=== PATIENT | male | born 1980 | race Caucasian/White ===

== ENCOUNTER 2017-09-28 12:01 | Emergency (ER) | payer MEDICAID ==
[~2017-09-28] VITALS: Ht 160 cm; Wt 72.6 kg
[~2017-09-28 12:01] MED LIST: ALBU2.5V7 INH; ARTT OP; CALC-226 GT; CHLO473M5 MM; DULR10 RC; IPRA0.2S6 INH; MULT240L GT; OMEP20CA10 GT; SENN8.8S13 GT; TYLL650 GT; TYLL650 PO; [UNRECOGNIZED DRUG - OTHER] GT
[2017-09-28 12:08] VITALS: BP_SYST 123
[2017-09-28] MEDS ORDERED: GASTROGRAFIN 120 ML ONE (12:50)
[2017-09-28 13:05] VITALS: BP_SYST 123
== END 2017-09-28 13:05 | disposition home or self-care (01) ==
LOC: SED 12:01
DX: Z46.59 Encounter for fitting and adjustment of other gastrointestinal appliance and device (principal); K21.9 Gastro-esophageal reflux disease without esophagitis; G80.9 Cerebral palsy, unspecified; Z79.899 Other long term (current) drug therapy
CPT/HCPCS: 43760; 74240; 99284; Q9963

== ENCOUNTER 2018-01-07 13:42 | Emergency (ER) | payer MEDICAID ==
[~2018-01-07] VITALS: Ht 160 cm; Wt 81.6 kg
[~2018-01-07 13:42] MED LIST changes: -CALC-226 GT; +CALC-823 GT
[2018-01-07 13:45] VITALS: BP_SYST 159
--- NOTE | 2018-01-07 13:54 | NUR ---
Pt brought by ambulanc care, Alert to voice, pt presents to ER with G-tube dislodgement since today, pt has contractures on upper extremities, temp 100.2,respirations even and unlabored.
--- NOTE | 2018-01-07 14:10 | NUR ---
Dr Jauregui at bedside examining patient.
--- NOTE | 2018-01-07 14:20 | NUR ---
Dr Jauregui at bedside for G-tube replacement, well tolerated.
[2018-01-07] MEDS ORDERED: GASTROGRAFIN 120 ML ONE (14:41)
--- NOTE | 2018-01-07 15:04 | NUR ---
Called Mauricio vaca to give report on patient status, spoke with renata Vu on stable condition.
[2018-01-07 15:05] VITALS: BP_SYST 144
--- NOTE | 2018-01-07 15:05 | NUR ---
Patient given written and verbal discharge instructions and verbalizes understanding. ER MD discussed with patient the results and treatment provided. Patient in stable condition. ID arm band removed. No Rx given. Patient educated on pain management and to follow up with PMD in 2-3 days. Pain Scale 0/10 Opportunity for questions provided and answered.
== END 2018-01-07 15:05 | disposition home or self-care (01) ==
LOC: SED 13:42
DX: Z43.1 Encounter for attention to gastrostomy (principal); R03.0 Elevated blood-pressure reading, without diagnosis of hypertension; K21.9 Gastro-esophageal reflux disease without esophagitis; Z79.899 Other long term (current) drug therapy
CPT/HCPCS: 43760; 74241; 99284; Q9963

== ENCOUNTER 2019-04-10 03:50 | Inpatient (IN) | payer MEDICAID ==
[~2019-04-10] VITALS: Ht 185.4 cm; Wt 84.4 kg
[2019-04-10] VITALS (20 sets, daily range): BP systolic 85–166
[~2019-04-10 03:50] MED LIST changes: -OMEP20CA10 GT; +OMEP20CA11 GT
--- NOTE | 2019-04-10 03:50 | NUR ---
Fredy dominguez in [facility] - 04/10/19 at 0709 by [email or web address] Patient to bed 3 to [facility] for evaluation. Side rails up.
--- NOTE | 2019-04-10 03:50 | NUR ---
Placed in room 3 . Placed on careers adviser, blood pressure machine and pulse oximeter. To gown for exam. Side rails up.
--- NOTE | 2019-04-10 03:51 | NUR ---
Patient was BIB [facility] from [facility] c/o high temperature, elevated Heart rate, and hypertension. Per information technology internship, pt was found by staff pale and they checked his vital signs and temp was at 105 orally and per paramedics, HR was at 180 at in SVT. Pt arrived diaphoretic. Pt is vent dependent. Hx of Cerebral Palsy. No other injuries/complaints per patient or noted.
--- NOTE | 2019-04-10 03:52 | NUR ---
ER Dr. Clay at bedside examining patient.
--- NOTE | 2019-04-10 04:01 | NUR ---
Accucheck was done, 361. Dr. Clay made aware.
[2019-04-10] MEDS ORDERED: ACETAMINOPHEN 650 MG SUPP.RECT RC ONE ×2 (04:15→10:15)
[2019-04-10] MEDS ORDERED: NS 1000 ML IV.SOLN IV ONE (04:15)
--- NOTE | 2019-04-10 04:20 | NUR ---
Blood cultures were drawn and sent to lab.
[2019-04-10 04:42] LABS: BASOPHILS # (AUTO) 0.1 K/uL (0.0-0.2); HEMOGLOBIN 16.1 g/dL (14.0-18.0)
[2019-04-10 04:48] LABS: MEAN CORPUSCULAR HEMOGLOBIN 31 pg (27-31); RED BLOOD CELL COUNT(AUTO) 5.14 MIL/uL (4.2-6.2)
[2019-04-10 04:49] LABS: CALCIUM 10.2 mg/dL (8.4-11.0); CREATININE 0.81 mg/dL (0.55-1.30); POTASSIUM 4.6 mmol/L (3.5-5.1)
--- NOTE | 2019-04-10 04:50 | NUR ---
Dr. Clay at bedside performing central line procedure using septic technique.
[2019-04-10] MEDS ORDERED: DOCU-144 GT (04:52)
[2019-04-10] MEDS ORDERED: OMEP20CA11 PO (04:52)
[2019-04-10 04:53] LABS: BASOPHILS % (AUTO) 0.6 % (0.0-2.0); HEMATOCRIT 48.3 % (36-54); INR 1.1 (0.80-1.20); LYMPHOCYTES # (AUTO) 1.3 K/uL (1.0-5.5); LYMPHOCYTES % (AUTO) 6.2 % (20.5-51.5); MEAN CORPUSCULAR HGB CONC 33 % (32-36); MEAN CORPUSCULAR VOLUME 94 fL (79.0-98.0); MONOCYTES # (AUTO) 0.4 K/uL (0.0-1.0); NEUTROPHILS # (AUTO) 18.6 K/uL (1.8-7.7); NEUTROPHILS % (AUTO) 91.2 % (40.0-70.0); PLATELET COUNT (AUTO) 333 K/uL (130-430); PROTHROMBIN TIME 11.1 SECS (9.5-12.5); RED CELL DISTRIBUTION WIDTH 14.6 % (9.0-15.0); WHITE BLOOD COUNT (AUTO) 20.4 K/uL (4.8-10.8)
--- NOTE | 2019-04-10 04:55 | NUR ---
Medication reconciliation completed with information provided by patient paperwork. Any prior medication reconciliation on file was reviewed and corrected.
[2019-04-10 04:56] LABS: ALBUMIN 3.4 g/dL (3.4-4.8); TOTAL BILIRUBIN 0.7 mg/dL (0.0-1.0)
[2019-04-10 04:58] LABS: BILIRUBIN,URINE NEGATIVE (NEGATIVE); BLOOD, URINE 3+ (NEGATIVE); CLARITY/URINE CLEAR (CLEAR); COLOR,URINE YELLOW (YELLOW); GLUCOSE,URINE 2+ (NEGATIVE); KETONES,URINE TRACE (NEGATIVE); LEUKOCYTE ESTERASE ,URINE 1+ (NEGATIVE); NITRITE, URINE NEGATIVE (NEGATIVE); PROTEIN URINE 3+ (NEGATIVE)
--- NOTE | 2019-04-10 05:00 | NUR ---
Dr. Clay at bedside attempting to place central line to Right femoral using sterile technique. Unsuccessful due to patient severely contracted, per Dr. Clay.
[2019-04-10 05:10] LABS: BACTERIA,URINE MANY /HPF (None Seen); RBC,URINE >100 /HPF (0-3)
[2019-04-10 05:11] LABS: YEAST,URINE Few /HPF (None Seen)
--- NOTE | 2019-04-10 05:30 | NUR ---
Note alberto in EDM - 04/10/19 at [email or web address] Clay at bedside attempting to place IJ to Right subclavian using sterile technique. Unsucessful attempt, unable to access.
--- NOTE | 2019-04-10 05:30 | NUR ---
Dr. Clay at bedside attempting to place central line to Right subclavian using sterile technique. Unsucessful attempt, unable to access.
[2019-04-10] MEDS ORDERED: ADENOSINE 6MG/2ML VIAL IVP ONE ×2 (06:00)
[2019-04-10] MEDS ORDERED: KETOROLAC TROMETHAMINE 30 MG VIAL IVP ONE (06:00)
--- NOTE | 2019-04-10 06:00 | NUR ---
Patient was placed on secured entrance monitor for cardioversion, per Dr. Clay. , Charge Nurse, RT, and primary nurse at bedside.
--- NOTE | 2019-04-10 06:05 | NUR ---
Patient was cardioverted at 200J, per Dr. Caly. Converted to sinus tachycardia.
[2019-04-10] MEDS ORDERED: AMIODARONE HCL 150 MG in D5W 97 ML IV ONE (06:15)
[2019-04-10] MEDS ORDERED: AMIODARONE HCL 900 MG in D5W 482 ML IV ONE (06:15)
[2019-04-10] MEDS ORDERED: AMIODARONE HCL 150 MG/3ML VIAL ONE ×3 (06:22→06:33)
--- NOTE | 2019-04-10 07:12 | NUR ---
ER Dr. Clay at bedside speaking to patient's family.
--- NOTE | 2019-04-10 07:24 | NUR ---
Report given to CATA Batista. All care endorsed.
--- NOTE | 2019-04-10 07:36 | NUR ---
Pt has [address] in place L tibia, one in R humerus, both patent and flushing well. Pt has trach with 50% O2, 450ml tidal volume, and rate of 18. Pt temperature taken rectally 106.7, ice packs refreshed. Currently AOx1 responds to tactile/painful stimuli. Addendum: 04/10/19 at 0940 by [email or web address] Pt has [address] one in place L tibia, one in R humerus, both patent and flushing well. Pt has trach with 50% O2, 450ml tidal volume, and rate of 18. Pt temperature taken rectally 106.7, ice packs refreshed. Currently AOx1 responds to tactile/painful stimuli. Pt received 2L NS beginning 0435 and Levaquin at 0457. Currently on Amiodarone drip at 33.3ml/hr.
--- NOTE | 2019-04-10 08:00 | NUR ---
Current rectal temp is 106.7
--- NOTE | 2019-04-10 08:10 | NUR ---
Cooling measures are in place. Motrin 600mg given
[2019-04-10] MEDS ORDERED: IBUPROFEN 100 MG/5 ML UDC ONE (08:23)
[2019-04-10] MEDS ORDERED: INSULIN REGULAR, HUMAN 10 UNITS/0.1 ML INJ ONE (08:56)
[2019-04-10] MEDS ORDERED: IBUPROFEN 100 MG/5 ML UDC PO ONE (09:00)
[2019-04-10] MEDS ORDERED: NACL 0.9% 1,000 ML IV ONE (09:00)
[2019-04-10] MEDS ORDERED: INSULIN REGULAR, HUMAN 10 UNITS/0.1 ML INJ IVP ONE (09:00)
--- NOTE | 2019-04-10 09:10 | NUR ---
Dr Patel notified that central line was unable to be obtained. Dr Patel would not place admission orders until there is a line in place
--- NOTE | 2019-04-10 09:15 | NUR ---
Dr. Dwyer at the bedside attempting to insert a central line.
--- NOTE | 2019-04-10 09:30 | NUR ---
IO sites both flushing well no redness or pain noted, blood return obtained. Pt appears to be resting in bed with family at bedside.
--- NOTE | 2019-04-10 09:35 | NUR ---
Current accu check is 377. Dr. Dwyer notified. Insulin 10units IVP given per MD order
--- NOTE | 2019-04-10 09:37 | NUR ---
Dr. Dwyer spoke w/ Dr. Patel again, regarding admission
--- NOTE | 2019-04-10 09:58 | NUR ---
pt will be admitted to the ICU. Currently on zaynab w/ the following settings TV-450, RR-18, FiO2-50%, AC-mode. Track is a portex size 7, cuffed. Pt as two IO sites on the right shoulder and right tibia ifusing NS bolus and Amiodarone drip @33.3ml. Escobar cath #16 is to gravity draining yellow concentrated urine. Current VS are temp 105, 130/77, 157, O2 sat 95%, RR 25.
--- NOTE | 2019-04-10 10:02 | NUR ---
MRSA swab collected
--- NOTE | 2019-04-10 10:04 | NUR ---
MRSA collected and sent to the lab
[2019-04-10] MEDS ORDERED: DILTIAZEM HCL 25 MG/5 ML VIAL IVP ONE (10:15)
--- NOTE | 2019-04-10 10:15 | NUR ---
pt received 2l of NS, 3l currently infusing. Pt received Levaquin IVPB prior to the beginning of the shift.
--- NOTE | 2019-04-10 10:20 | NUR ---
ABGs being attempted at this time
--- NOTE | 2019-04-10 10:35 | NUR ---
ER- ICU Arrived to ER bed 3 to help assist pt to ICU. Pt connected to transport monitor, pt is trach connected to vent connected to the vent with RT assisting. Bedside report received from Lynne IVY. Pt placed in ICU bed 3.
--- NOTE | 2019-04-10 10:53 | NUR ---
Transfer to ICU bed via ACLS protocol. Licensed nurse present. IO x 2 sites present no signs or symptoms of infiltration. Bedside report given to Talia IVY. Pt transported w/ vent, RT present.
--- NOTE | 2019-04-10 10:55 | NUR ---
pt transfered from er 3 to icu 3 on somers ventilator on current settings. tolerated well with no complications. remains on current vent setting vt 450 ac 18 fio2 50%
--- NOTE | 2019-04-10 11:02 | NUR ---
Cooling Measures Cooling blanket applied to pt with a sheet to protect skin, rectal prob inserted to monitor pts temp.
--- NOTE | 2019-04-10 11:20 | NUR ---
PICC PICC line nurse Jordin RN at bedside with pt, time out performed.
[2019-04-10] MEDS ORDERED: PANTOPRAZOLE SODIUM 40 MG/VIAL (PROTONIX) IVP ONE (11:45)
[2019-04-10] MEDS ORDERED: KCL 20 mEq in D5/0.45NS 1000mL 1,000 ML IV SCH (11:45)
[2019-04-10] MEDS ORDERED: CEFEPIME 1 GM in D5W 50 ML IV ONE (11:45)
[2019-04-10] MEDS ORDERED: NS 500 ML IV ONE (13:15)
[2019-04-10] MEDS ORDERED: NOREPINEPHRINE BITARTRATE 4 MG in D5W 246 ML IV PRN ×2 (13:15→14:00)
[2019-04-10 13:28] LABS: INR 1.3 (0.80-1.20); PROTHROMBIN TIME 12.9 SECS (9.5-12.5)
[2019-04-10] MEDS ORDERED: ACETAMINOPHEN 650 MG/20.3 ML UDC PO SCH (13:45)
[2019-04-10] MEDS ORDERED: PEG 400/HYPROMELLOSE/GLYCERIN 15 ML DROPS OP PRN (13:45)
[2019-04-10] MEDS ORDERED: ALBUTEROL SULFATE 0.083% 2.5 MG/3 ML VIAL.NEB INH PRN (13:45)
--- NOTE | 2019-04-10 13:57 | NUR ---
Family Pts family is at bedside, Dr. Patel has updated pts family who are at bedside.
[2019-04-10] MEDS ORDERED: IBUPROFEN 800 MG TABLET PO PRN (14:00)
[2019-04-10] MEDS: ALBUTEROL SULFATE 0.083% 2.5 MG/3 ML VIAL.NEB INH SCH ×3 (15:00→23:00)
[2019-04-10] MEDS: D5NS 1,000 ML IV SCH ×2 (15:09→18:57)
[2019-04-10] MEDS: ACETAMINOPHEN 650 MG/20.3 ML UDC GT PRN (15:21)
[2019-04-10] MEDS ORDERED: IBUPROFEN 800 MG TABLET GT PRN (16:35)
[2019-04-10] MEDS ORDERED: COMMUNICATION ORDER XX ONE (16:45)
[2019-04-10] MEDS ORDERED: VANCOMYCIN HCL 1 GM/NS PREMIX 250 ML IV SCH (19:00)
--- NOTE | 2019-04-10 19:05 | NUR ---
MD Dr. Mendoza at bedside with pt and pt's family.
--- NOTE | 2019-04-10 19:10 | NUR ---
Closing Notes Pt endorsed to night RN using SBAR. pt's family at bedside.
--- NOTE | 2019-04-10 20:00 | NUR ---
OBTUNDED. TRACH TO VENT. SUCTIONED WITH SCANT AMOUNT OF CLEAR, THIN MUCUS OBTAINED. ORAL CARE GIVEN. DOES NOT FOLLOW COMMANDS. UPPER EXTREMITIES CONTRACTED. BREATH SOUNDS WITH ADVENTITIOUS SOUNDS. BOWEL SOUNDS (+). GT CLAMPED. COOLING BLANKET IN PLACE. DAMON CATH PATENT DRAINING CLEAR SUMAYA URINE TO GRAVITY. PEDAL PULSES (+) VIA DOPPLER. HEEL PROTECTORS IN PLACE. TOM PICC LINE DRSG D/I. SINUS TACHYCARDIA.
[2019-04-10] MEDS ORDERED: VANCOMYCIN HCL 1000 MG/VIAL IV ONE (20:19)
[2019-04-10] MEDS ORDERED: VANCOMYCIN HCL 500 MG/VIAL IV ONE (20:19)
--- NOTE | 2019-04-10 20:25 | NUR ---
DR URRUTIA HERE, TALKED TO FAMILY. NEW ORDERS GIVEN TO BE IMPLEMENTED.
[2019-04-10] MEDS ORDERED: VANCOMYCIN HCL 500 MG in NS 100 ML IV SCH (21:00)
[2019-04-10] MEDS: CHLORHEXIDINE GLUCONATE 15 ML/DOSE, 480 ML MM SCH (21:00)
--- NOTE | 2019-04-10 21:00 | NUR ---
FAMILY LEFT FOR HOME.
--- NOTE | 2019-04-10 22:00 | NUR ---
TEMP 99.8, COOLING BLANKET OFF. SUCTIONED. HS CARE GIVEN. TURNED.
[2019-04-10] MEDS: SENNA 8.8 MG/5 ML UDC GT SCH (22:12)
[2019-04-10] MEDS: CALCIUM CARBONATE/VITAMIN D3 1 TAB TABLET GT SCH (22:12)
[2019-04-10] MEDS: CEFEPIME 1 GM in D5W 50 ML IV SCH (22:13)
[2019-04-10] MEDS ORDERED: metroNIDAZOLE 500 mg/NS 200 ML IV ONE (22:45)
[2019-04-10] MEDS: metroNIDAZOLE 500 mg/NS 100 ML IV SCH (23:23)
[2019-04-11] VITALS (34 sets, daily range): BP systolic 93–122
--- NOTE | 2019-04-11 | NUR ---
SUCTIONED AGAIN. ORAL CARE GIVEN. HR BETTER, 122. TURNED.
--- NOTE | 2019-04-11 02:00 | NUR ---
SUCTIONED. TURNED. HR 115.
[2019-04-11] MEDS: ALBUTEROL SULFATE 0.083% 2.5 MG/3 ML VIAL.NEB INH SCH ×3 (03:57→23:40)
--- NOTE | 2019-04-11 04:00 | NUR ---
TURNED AND REPOSITIONED. SUCTIONED WITH SAME RESULTS. ORAL CARE GIVEN. VSS.
[2019-04-11] MEDS: metroNIDAZOLE 500 mg/NS 100 ML IV SCH ×3 (05:55→21:57)
[2019-04-11] MEDS: D5NS 1,000 ML IV SCH ×2 (05:55→14:18)
--- NOTE | 2019-04-11 06:00 | NUR ---
SUCTIONED AND TURNED Q2 HRS AND PRN. UO GOOD. RECTAL TEMP 99.6, AND HR SLOWLY CREEPING UP AT 125, COOLING BLANKET BACK ON. REMAINS IN GUARDED CONDITION.
[2019-04-11] MEDS: CALCIUM CARBONATE/VITAMIN D3 1 TAB TABLET GT SCH ×2 (08:22→21:56)
[2019-04-11] MEDS: PANTOPRAZOLE SODIUM 40 MG/VIAL (PROTONIX) IVP SCH (08:23)
[2019-04-11] MEDS: SENNA 8.8 MG/5 ML UDC GT SCH ×2 (08:25→21:56)
[2019-04-11] MEDS: MULTIVITAMINS,THERAPEUTIC 5 ML UDC GT SCH (08:28)
[2019-04-11] MEDS: CEFEPIME 1 GM in D5W 50 ML IV SCH ×2 (08:31→21:55)
[2019-04-11] MEDS ORDERED: PANTOPRAZOLE SODIUM 40 MG TAB PO SCH (09:00)
[2019-04-11] MEDS: CHLORHEXIDINE GLUCONATE 15 ML/DOSE, 480 ML MM SCH ×2 (09:00→21:57)
[2019-04-11] MEDS ORDERED: ENOXAPARIN SODIUM 40 MG/0.4 ML SYRINGE SUBCUT SCH (09:00)
[2019-04-11 09:15] LABS: BASOPHILS % (AUTO) 0.2 % (0.0-2.0); HEMATOCRIT 32.6 % (36-54); HEMOGLOBIN 10.5 g/dL (14.0-18.0); LYMPHOCYTES # (AUTO) 1.9 K/uL (1.0-5.5); LYMPHOCYTES % (AUTO) 12.5 % (20.5-51.5); MEAN CORPUSCULAR HEMOGLOBIN 31 pg (27-31); MEAN CORPUSCULAR HGB CONC 32 % (32-36); MEAN CORPUSCULAR VOLUME 96 fL (79.0-98.0); MONOCYTES # (AUTO) 1.2 K/uL (0.0-1.0); MONOCYTES % (AUTO) 8.1 % (1.7-9.3); NEUTROPHILS # (AUTO) 12.1 K/uL (1.8-7.7); NEUTROPHILS % (AUTO) 79.2 % (40.0-70.0); PLATELET COUNT (AUTO) 57 K/uL (130-430); RED BLOOD CELL COUNT(AUTO) 3.41 MIL/uL (4.2-6.2); RED CELL DISTRIBUTION WIDTH 15.2 % (9.0-15.0); WHITE BLOOD COUNT (AUTO) 15.2 K/uL (4.8-10.8)
[2019-04-11 09:36] LABS: CREATININE 0.73 mg/dL (0.55-1.30)
[2019-04-11 09:49] LABS: CALCIUM 6.9 mg/dL (8.4-11.0); POTASSIUM 2.8 mmol/L (3.5-5.1)
[2019-04-11] MEDS ORDERED: POTASSIUM CHLORIDE 20 MEQ/PKT PACKET GT ONE (10:15)
[2019-04-11] MEDS ORDERED: POTASSIUM CHLORIDE 20 MEQ TAB.PRT.SR GT ONE (10:15)
--- NOTE | 2019-04-11 10:20 | NUR ---
Doctor Jolly at bedside
--- NOTE | 2019-04-11 10:30 | NUR ---
Blood Sugar taken per Dr. Jolly's request. Blood Sugar is 157
--- NOTE | 2019-04-11 10:33 | NUR ---
EKG by Respiratory Therapist Radha
[2019-04-11] MEDS ORDERED: POTASSIUM CHLORIDE 40 MEQ in NS 250 ML IV ONE (11:00)
[2019-04-11] MEDS: VANCOMYCIN HCL 1,250 MG in NS 250 ML IV SCH ×2 (11:11→19:04)
--- NOTE | 2019-04-11 11:16 | NUR ---
Vancomycin new order Patient's BUN 26 @ 0830 Verified with Pharmacy to infuse. Tyra
--- NOTE | 2019-04-11 11:18 | NUR ---
Family visitation Mother plus child
[2019-04-11 11:25] LABS: CALCIUM 8.3 mg/dL (8.4-11.0); CREATININE 0.54 mg/dL (0.55-1.30)
[2019-04-11 11:27] LABS: POTASSIUM 3.6 mmol/L (3.5-5.1)
--- NOTE | 2019-04-11 11:57 | NUR ---
MD Dr. Marrero informed of potassium redraw, new orders received to cxl K orders. informed of Procalcitonin 74.88.
[2019-04-11] MEDS: INSULIN REGULAR, HUMAN 100 UNITS/ML, 10 ML VIAL (humuLIN R) SUBCUT PRN ×2 (13:56→18:43)
[2019-04-11] MEDS: BISACODYL 10 MG/SUPPOSITORY RC SCH (15:20)
--- NOTE | 2019-04-11 16:36 | NUR ---
Cooling blanket turned off Patient's rectal body temperature was 98.7
--- NOTE | 2019-04-11 16:46 | NUR ---
Cooling blanket turned back on Patient's rectal body temperature is 99.6
[2019-04-11] MEDS ORDERED: D5W 1,000 ML IV PRN (17:15)
[2019-04-11] MEDS ORDERED: GLUCOSE 15 GM GEL (in 37.5 GM TUBE) PO PRN (17:15)
[2019-04-11] MEDS ORDERED: DEXTROSE 50%-WATER 50 ML DISP.SYRIN IVP PRN (17:15)
--- NOTE | 2019-04-11 19:30 | NUR ---
PM ASSESSMENT REPORT RECEIVED FROM CLAYTON/SARAH BETH IVY. PT RECEIVED IN BED WITH EYES CLOSED, RESPONDING TO TACTILE STIMULATION. VSS, NO S/S OF ACUTE DISTRESS NOTED. PT TRACH TO VENT, VENT SETTINGS: AC 18, TV 450, FIO2 50%. ST ON MONITOR. TOM PICC IN PLACE INFUSING D5NS @ 150 CC/HR. G-TUBE RUNNING JEVITY TF @ 20 CC/HR, GOAL RATE IS [address]. DAMON CATH IN PLACE DRAINING SUMAYA URINE TO GRAVITY. HOB ELEVATED, BED IN LOWEST POSITION, CALL LIGHT IN REACH. WILL CONTINUE TO MONITOR PT.
--- NOTE | 2019-04-11 22:05 | NUR ---
TF TF INCREASED TO 30 CC/HR. NO RESIDUALS NOTED. WILL CONTINUE TO MONITOR PT.
[2019-04-12] VITALS (30 sets, daily range): BP systolic 96–159
--- NOTE | 2019-04-12 00:20 | NUR ---
COOLING BLANKET PT RECTAL TEMP 98.5. COOLING BLANKET TURNED OFF AT THIS TIME. WILL CONTINUE TO MONITOR PT.
[2019-04-12] MEDS: VANCOMYCIN HCL 1,250 MG in NS 250 ML IV SCH ×3 (02:22→19:36)
[2019-04-12] MEDS: D5NS 1,000 ML IV SCH (02:22)
[2019-04-12] MEDS: ALBUTEROL SULFATE 0.083% 2.5 MG/3 ML VIAL.NEB INH SCH ×3 (04:25→23:14)
[2019-04-12] MEDS: metroNIDAZOLE 500 mg/NS 100 ML IV SCH ×3 (05:10→22:02)
--- NOTE | 2019-04-12 06:57 | NUR ---
Nutrition Update Lalo Scale 12 noted. Pt admitted for sepsis, UTI Chronic Respiratory Failure Diet: Jevity 1.5 at 40ml/hr (goal rate) Free Water Flush 100ml Q6H via GT BMI: 24.5 kg/m2 RD to follow per nutrition care standards.
[2019-04-12 06:58] LABS: CALCIUM 8.5 mg/dL (8.4-11.0); CREATININE 0.66 mg/dL (0.55-1.30); POTASSIUM 3.1 mmol/L (3.5-5.1)
[2019-04-12 07:10] LABS: BASOPHILS % (AUTO) 0.3 % (0.0-2.0); HEMATOCRIT 32.9 % (36-54); HEMOGLOBIN 10.7 g/dL (14.0-18.0); LYMPHOCYTES % (AUTO) 14.4 % (20.5-51.5); MEAN CORPUSCULAR HEMOGLOBIN 31 pg (27-31); MEAN CORPUSCULAR HGB CONC 33 % (32-36); MEAN CORPUSCULAR VOLUME 95 fL (79.0-98.0); MONOCYTES # (AUTO) 0.6 K/uL (0.0-1.0); MONOCYTES % (AUTO) 4.6 % (1.7-9.3); NEUTROPHILS # (AUTO) 11.3 K/uL (1.8-7.7); NEUTROPHILS % (AUTO) 80.7 % (40.0-70.0); PLATELET COUNT (AUTO) 55 K/uL (130-430); RED BLOOD CELL COUNT(AUTO) 3.47 MIL/uL (4.2-6.2)
--- NOTE | 2019-04-12 07:30 | NUR ---
PT Assessment Patient Received from CATA Guy with eyes closed and responsive to noxious stimuli only. The patient has a Portex trach, Size 7, and the vent settings are 18 RR, 450 TV, 35 PF, 50% O2. The head of the bed is set at 35 degrees, in the lowest setting, with the call light in reach. The patient is wearing heel protectors, and is still set up with a cooling blanket, which is not cooling but monitoring, and the current body temp via rectal is 98.5 degrees. TOM PICC in place infusing D5 NS @ 150. G-Tube was running Jevity 1.5 at 40cc/hr, but the patient's residual was 155cc, so patient bumped back down to 20cc for the time being. Escobar cath in place draining bismark colored urine to gravity. Will continue to monitor patient.
[2019-04-12] MEDS: SENNA 8.8 MG/5 ML UDC GT SCH ×2 (08:31→21:59)
[2019-04-12] MEDS: MULTIVITAMINS,THERAPEUTIC 5 ML UDC GT SCH (08:37)
[2019-04-12] MEDS: CALCIUM CARBONATE/VITAMIN D3 1 TAB TABLET GT SCH ×2 (08:38→21:00)
[2019-04-12] MEDS: PANTOPRAZOLE SODIUM 40 MG/VIAL (PROTONIX) IVP SCH (08:46)
[2019-04-12] MEDS: CHLORHEXIDINE GLUCONATE 15 ML/DOSE, 480 ML MM SCH ×2 (08:46→21:59)
[2019-04-12] MEDS: CEFEPIME 1 GM in D5W 50 ML IV SCH ×2 (08:47→21:59)
[2019-04-12] MEDS ORDERED: POTASSIUM CHLORIDE 20 MEQ/PKT PACKET PO ONE (10:15)
[2019-04-12] MEDS ORDERED: PHENYTOIN SODIUM INJ 1,000 MG in NS 100 ML IV ONE (11:00)
[2019-04-12] MEDS ORDERED: GLUCOSE 15 GM GEL (in 37.5 GM TUBE) GT PRN (11:09)
[2019-04-12] MEDS ORDERED: COMMUNICATION ORDER XX ONE (11:15)
[2019-04-12] MEDS ORDERED: SODIUM PHOSPHATE,MONO-DIBASIC 133 ML ENEMA RC PRN (12:15)
[2019-04-12] MEDS: INSULIN REGULAR, HUMAN 100 UNITS/ML, 10 ML VIAL (humuLIN R) SUBCUT PRN ×2 (12:26→18:09)
--- NOTE | 2019-04-12 12:41 | NUR ---
Dr Jolly in room visiting with family. Discussed the need for seizure precautions, new seizure medication, teaching and also the need for new GI medications to assist in bowel movements.
--- NOTE | 2019-04-12 13:00 | NUR ---
BED BATH PATIENT RECEIVED A CHG BED BATH, NEW LINENS AND ORAL CARE, COOLING BLANKET WAS DISCONTINUED PATIENT'S RECTAL TEMPERATURE HAS STABILIZED, ALL SKIN SURFACES WERE INSPECTED AND DRY, WARM, BLANCHABLE. WILL CONTINUE TO MONITOR THE PATIENT
--- NOTE | 2019-04-12 13:11 | NUR ---
Dietitian Recommendations *Recommend: Jevity 1.5 at 50ml/hr, Maanv BID, Prosource BID, FWF 100ml Q6H via GT Provides: 2080 kcal, 112 gm protein and 1372ml free water daily. Meets: 101% of est calorie needs and 89% of lower end of est protein needs. Please see nutritional assessment for details.
--- NOTE | 2019-04-12 13:31 | NUR ---
CONSULTATION PAGED/CALLED Reason for Consultation: [] SEIZURES Person Who was Notified: [] TOY Consulting Physician: [] DR REBECCA KATE, DR UNGER COVERING Oncology Nurse Specialty: [] NEUROLOGIST Ordering Physician: [] DR MEHTA
--- NOTE | 2019-04-12 13:45 | NUR ---
NEURO ASSESSED NEURO CONSULT VERIFIED SILENT SEIZURES, NOTING FACE AND RIGHT ARM MOVEMENT PATIENT. PROTECTIVE BED RAIL PADS INSTALLED AND SEIZURE PRECAUTIONS IMPLEMENTED. PRN DILANTIN ORDERED IF PATIENT HAS A SEIZURE > 2 MINUTES
[2019-04-12] MEDS ORDERED: LORazepam 2 MG/ML VIAL IVP ONE (14:00)
[2019-04-12] MEDS ORDERED: LORazepam 2 MG/ML VIAL ONE (14:06)
[2019-04-12] MEDS: PHENYTOIN 100 MG/4 ML UDC (DILANTIN) GT SCH ×2 (14:16→22:05)
[2019-04-12] MEDS ORDERED: POTASSIUM CHLORIDE 20 MEQ/PKT PACKET GT ONE (14:30)
[2019-04-12] MEDS: LORazepam 2 MG/ML VIAL IVP PRN (16:37)
--- NOTE | 2019-04-12 17:30 | NUR ---
CONTACT PRECAUTION URINE CAME BACK MDR, FAMILY PROVIDED TEACHING ABOUT PPE AND INFECTION CONTROL
--- NOTE | 2019-04-12 17:38 | NUR ---
ID MD DR JUARES WAS CALLED, RE: MDRO OF THE URINE. SPOKE TO ADDIE.
--- NOTE | 2019-04-12 20:00 | NUR ---
OBTUNDED. RESPONSIVE TO NOXIOUS AND PAINFUL STIMULI. DOES NOT FOLLOW COMMANDS. TRACH TO VENT. SUCTIONED WITH SMALL AMOUNT OF THIN WHITE MUCUS OBTAINED. ORAL CARE GIVEN. GT FEEDING WITH JEVITY 1.5 GOING AT AT 40CC/HR. RESIDUAL CHECK 20CC. TOM PICC LINE DRSG D/I. ARMS CONTRACTED. DAMON CATH PATENT DRAINING CLOUDY SUMAYA URINE WITH SEDIMENTS TO GRAVITY. SIDE RAILS PADDED. CONTACT ISOLATION OBSERVED. SINUS TACHYCARDIA.
[2019-04-12] MEDS: DOCUSATE SODIUM 100 MG/10 ML UDC GT SCH (21:58)
--- NOTE | 2019-04-12 22:00 | NUR ---
SUCTIONED. TURNED. HS CARE DONE. FAMILY LEFT FOR HOME EARLIER.
[2019-04-13] VITALS (30 sets, daily range): BP systolic 97–124
--- NOTE | 2019-04-13 | NUR ---
EYES CLOSED. SUCTIONED AGAIN WITH SAME RESULTS. ORAL CARE GIVEN. ACCU CHECK 196, 2 UNITS REGULAR INSULIN SQ GIVEN. RESIDUAL CHECK 20CC. GT FLUSHED WITH 100CC H2O. TURNED.
[2019-04-13] MEDS: INSULIN REGULAR, HUMAN 100 UNITS/ML, 10 ML VIAL (humuLIN R) SUBCUT PRN ×4 (02:46→17:22)
[2019-04-13] MEDS: VANCOMYCIN HCL 1,250 MG in NS 250 ML IV SCH ×3 (02:52→22:47)
--- NOTE | 2019-04-13 04:00 | NUR ---
SUCTIONED AGAIN WITH SAME RESULTS. MUCUS OOZING OUT OF TRACHEOSTOMY. TRACH CARE DONE BY RT. ORAL CARE GIVEN. TURNED. RESIDUAL CHECK 20CC. SINUS TACH.
[2019-04-13] MEDS: ALBUTEROL SULFATE 0.083% 2.5 MG/3 ML VIAL.NEB INH SCH ×6 (04:02→23:21)
[2019-04-13] MEDS: PHENYTOIN 100 MG/4 ML UDC (DILANTIN) GT SCH ×3 (05:43→22:42)
[2019-04-13] MEDS: metroNIDAZOLE 500 mg/NS 100 ML IV SCH ×3 (05:43→22:42)
--- NOTE | 2019-04-13 06:00 | NUR ---
1 LARGE LBM DEFECATED. CLEANED. SARKIS-CARE, DAMON CARE, BACK CARE, SKIN CARE RENDERED. PARTIAL LINEN CHANGE DONE. DOES NOT ASSIST WITH TURNING. MERI PROC WELL. GT FLUSHED WITH 100CC H2O. ACCU-CHEK 139, NO INSULIN DUE PER SLIDING SCALE COV. UO GOOD. REMAINS IN GUARDED CONDITION.
[2019-04-13 06:38] LABS: BASOPHILS % (AUTO) 0.5 % (0.0-2.0); EOSINOPHILS % (AUTO) 0.4 % (0.0-4.0); HEMATOCRIT 28.4 % (36-54); HEMOGLOBIN 9.3 g/dL (14.0-18.0); LYMPHOCYTES % (AUTO) 20.1 % (20.5-51.5); MEAN CORPUSCULAR HEMOGLOBIN 31 pg (27-31); MEAN CORPUSCULAR HGB CONC 33 % (32-36); MEAN CORPUSCULAR VOLUME 95 fL (79.0-98.0); MONOCYTES # (AUTO) 0.7 K/uL (0.0-1.0); MONOCYTES % (AUTO) 7.2 % (1.7-9.3); NEUTROPHILS # (AUTO) 7.3 K/uL (1.8-7.7); NEUTROPHILS % (AUTO) 71.8 % (40.0-70.0); PLATELET COUNT (AUTO) 71 K/uL (130-430); RED CELL DISTRIBUTION WIDTH 14.8 % (9.0-15.0); WHITE BLOOD COUNT (AUTO) 10.2 K/uL (4.8-10.8)
[2019-04-13 07:22] LABS: ALBUMIN 2.3 g/dL (3.4-4.8); CALCIUM 8.2 mg/dL (8.4-11.0); CREATININE 0.63 mg/dL (0.55-1.30); POTASSIUM 3.1 mmol/L (3.5-5.1); TOTAL BILIRUBIN 0.8 mg/dL (0.0-1.0)
--- NOTE | 2019-04-13 08:00 | NUR ---
Initialassessment done. Eyes closed, does not follow commands. Trache to vent, respiration is unlabored and regular. Scope ST, no ectopics. BP stable. Gtube feeding cont. rodriguez cath draining well. Turned and repositioned. Family at [facility], update given.
--- NOTE | 2019-04-13 08:02 | NUR ---
Nutrition Note EN Formula Jevity 1.5 is not available and Vital AF 1.2 will be provided as a substitute for now. RD s/w CATA Gaitan for new rec. Dietitian Recommendation: * Vital AF 1.2 at 65ml/hr, Manav BID, FWF 100ml Q6H via GT Provides: 2032 kcal, 122 gm protein and 1665ml fluid daily. Meets: 99% of estimated calorie needs and 97% of lower end of estimated protein needs. FPC, RD
[2019-04-13 08:10] LABS: PHENYTOIN (DILANTIN) 9.2 ug/mL (10.0-20.0)
--- NOTE | 2019-04-13 09:00 | NUR ---
Dr. Mendoza was here, update given. Orders received.
[2019-04-13] MEDS: CEFEPIME 1 GM in D5W 50 ML IV SCH ×2 (09:22→22:44)
[2019-04-13] MEDS: SENNA 8.8 MG/5 ML UDC GT SCH ×2 (09:22→21:00)
[2019-04-13] MEDS: PANTOPRAZOLE SODIUM 40 MG/VIAL (PROTONIX) IVP SCH (09:23)
[2019-04-13] MEDS: CHLORHEXIDINE GLUCONATE 15 ML/DOSE, 480 ML MM SCH ×2 (09:24→22:00)
[2019-04-13] MEDS ORDERED: POTASSIUM CHLORIDE 20 MEQ/PKT PACKET PO ONE (09:30)
[2019-04-13] MEDS: ENOXAPARIN SODIUM 40 MG/0.4 ML SYRINGE SUBCUT SCH (09:31)
[2019-04-13] MEDS: DOCUSATE SODIUM 100 MG/10 ML UDC GT SCH ×2 (09:39→21:00)
[2019-04-13] MEDS: MULTIVITAMINS,THERAPEUTIC 5 ML UDC GT SCH (09:41)
[2019-04-13] MEDS: 0.45% NACL 1,000 ML IV SCH (10:50)
[2019-04-13] MEDS: CALCIUM CARBONATE/VITAMIN D3 1 TAB TABLET GT SCH ×2 (12:03→22:42)
--- NOTE | 2019-04-13 14:34 | NUR ---
1330 TITRATED FIO2 DOWN TO 40%. PT TOLERATING WELL
--- NOTE | 2019-04-13 14:50 | NUR ---
Dr. Brown was here, update given. Spoke to pt's mother. Repositioned to side. Suctioned.
--- NOTE | 2019-04-13 17:01 | NUR ---
Manager Mission: Met with pt. to conduct a DCPA GAS SHOVEL OPERATOR intoduced self to pts. mom as pt. was sleeping. GAS SHOVEL OPERATOR learned that mom is polish speaking. GAS SHOVEL OPERATOR will call family.
[2019-04-13] MEDS: LORazepam 2 MG/ML VIAL IVP PRN (17:15)
--- NOTE | 2019-04-13 17:15 | NUR ---
Ativan 2mg given for restlessness. Repositioned to side.
[2019-04-14] VITALS (29 sets, daily range): BP systolic 93–152
[2019-04-14] MEDS: ALBUTEROL SULFATE 0.083% 2.5 MG/3 ML VIAL.NEB INH SCH ×6 (03:56→23:18)
[2019-04-14] MEDS: metroNIDAZOLE 500 mg/NS 100 ML IV SCH ×3 (05:54→21:52)
[2019-04-14] MEDS: PHENYTOIN 100 MG/4 ML UDC (DILANTIN) GT SCH ×3 (06:04→21:52)
[2019-04-14 06:08] LABS: BASOPHILS # (AUTO) 0.1 K/uL (0.0-0.2); BASOPHILS % (AUTO) 0.6 % (0.0-2.0); EOSINOPHILS # (AUTO) 0.1 K/uL (0.0-0.4); EOSINOPHILS % (AUTO) 1.5 % (0.0-4.0); HEMATOCRIT 29.1 % (36-54); HEMOGLOBIN 9.6 g/dL (14.0-18.0); LYMPHOCYTES # (AUTO) 1.9 K/uL (1.0-5.5); LYMPHOCYTES % (AUTO) 23.4 % (20.5-51.5); MEAN CORPUSCULAR HEMOGLOBIN 31 pg (27-31); MEAN CORPUSCULAR HGB CONC 33 % (32-36); MEAN CORPUSCULAR VOLUME 94 fL (79.0-98.0); MONOCYTES # (AUTO) 0.6 K/uL (0.0-1.0); MONOCYTES % (AUTO) 7.7 % (1.7-9.3); NEUTROPHILS # (AUTO) 5.6 K/uL (1.8-7.7); NEUTROPHILS % (AUTO) 66.8 % (40.0-70.0); PLATELET COUNT (AUTO) 101 K/uL (130-430); RED BLOOD CELL COUNT(AUTO) 3.11 MIL/uL (4.2-6.2); RED CELL DISTRIBUTION WIDTH 14.8 % (9.0-15.0); WHITE BLOOD COUNT (AUTO) 8.3 K/uL (4.8-10.8)
[2019-04-14 06:40] LABS: ALBUMIN 2.3 g/dL (3.4-4.8); CALCIUM 8.6 mg/dL (8.4-11.0); CREATININE 0.52 mg/dL (0.55-1.30); POTASSIUM 3.2 mmol/L (3.5-5.1); TOTAL BILIRUBIN 0.6 mg/dL (0.0-1.0)
--- NOTE | 2019-04-14 07:59 | NUR ---
Initial assessment done. Eyes, closed, nonverbal, does not follow commands. Scope shows STach, no ectopics. Afebrile. Bp stable. Trache to vent, respiration is unlabored. Abdomen is soft with GT feeding going at 50 ml/hr. HOB elevated for aspiration precautions. rodriguez cath draining well.
--- NOTE | 2019-04-14 08:01 | NUR ---
Tube feed switched to Vital AF 1.2. Tube feed turned off one hour prior to and one hr after administration of Dilantin per order. Endorsed to CATA Gaitan to restart tube feeding.
[2019-04-14] MEDS: DOCUSATE SODIUM 100 MG/10 ML UDC GT SCH ×2 (08:21→20:28)
[2019-04-14] MEDS: CHLORHEXIDINE GLUCONATE 15 ML/DOSE, 480 ML MM SCH ×2 (08:21→20:29)
[2019-04-14] MEDS: PANTOPRAZOLE SODIUM 40 MG/VIAL (PROTONIX) IVP SCH (08:22)
[2019-04-14] MEDS: CALCIUM CARBONATE/VITAMIN D3 1 TAB TABLET GT SCH ×2 (08:22→20:28)
[2019-04-14] MEDS: SENNA 8.8 MG/5 ML UDC GT SCH ×2 (08:23→20:28)
[2019-04-14] MEDS: CEFEPIME 1 GM in D5W 50 ML IV SCH ×2 (08:24→20:28)
[2019-04-14] MEDS: ENOXAPARIN SODIUM 40 MG/0.4 ML SYRINGE SUBCUT SCH (08:26)
[2019-04-14] MEDS: MULTIVITAMINS,THERAPEUTIC 5 ML UDC GT SCH (08:27)
--- NOTE | 2019-04-14 10:00 | NUR ---
Dr. Mendoza and Dr. Patel were here, orders received. Family at bedside
--- NOTE | 2019-04-14 12:00 | NUR ---
Tolerating feeding well. Repositioned to side. Urine output adequate.
[2019-04-14] MEDS: VANCOMYCIN HCL 1,250 MG in NS 250 ML IV SCH ×2 (12:01→23:42)
[2019-04-14] MEDS: POTASSIUM CHLORIDE 20 MEQ TAB.PRT.SR PO SCH ×2 (12:55→16:12)
--- NOTE | 2019-04-14 14:14 | NUR ---
Discharge Plan/ICU Assessment Phoned patient's sister, Brianda [phone]. It is a non working number. Phoned number based on the phone number from the Admission Assessment, , and left a voicemail message. Will await return call. Phoned Biju at [facility], . Patient has been a resident there for over five years. They are holding his bed and plan for him to return there. Patient's mother visits him daily but only speaks Maori. HARMONY conducted a chart review and completed the DCP/ICU Assessment. Addendum: 04/14/19 at 1536 by Erika [place] LCSW Mother was in the room. Asked translator interpreter to assist with speaking with mother. When arrived at the room, patient's mother had left.
[2019-04-14] MEDS: LORazepam 2 MG/ML VIAL IVP PRN (16:10)
--- NOTE | 2019-04-14 16:10 | NUR ---
Pt is restless, Ativan 2 mng IVP given. VSS. Repositioned for comfort
[2019-04-14] MEDS: 0.45% NACL 1,000 ML IV SCH (16:21)
--- NOTE | 2019-04-14 18:11 | NUR ---
Mother remains at bedside, very attentive to patient. VSS. Urine output adequate.
--- NOTE | 2019-04-14 19:10 | NUR ---
PM ASSESSMENT Pt in bed with eyes closed resting comfortably. No signs of acute distress or discomfort noted. Family at bedside. Pt trach to vent with vent settings: AC 18, TV 450, FiO2 40%. Pt tolerating vent settings well with O2 sats @ 97% and even and unlabored breathing. TOM picc infusing IVF, c/d/i. Escobar cath note draining urine to gravity, g tube noted infusing tubefeeding. Bed is locked and in lowest position, call light within reach, will cont to monitor pt.
[2019-04-15] VITALS (32 sets, daily range): BP systolic 111–148
--- NOTE | 2019-04-15 00:10 | NUR ---
Pt in bed with eyes closed resting comfortably. No signs of acute distress or discomfort noted. Bed is locked and in lowest position, call light within reach, will cont to monitor pt.
--- NOTE | 2019-04-15 04:10 | NUR ---
Pt in bed with eyes closed resting comfortably. No signs of acute distress or discomfort noted. Pt repositioned at this time. Pt tolerated well. Bed is locked and in lowest position, call light within reach, will cont to monitor pt.
[2019-04-15] MEDS: ALBUTEROL SULFATE 0.083% 2.5 MG/3 ML VIAL.NEB INH SCH ×6 (04:15→23:20)
[2019-04-15] MEDS: metroNIDAZOLE 500 mg/NS 100 ML IV SCH ×3 (05:28→21:54)
[2019-04-15] MEDS: PHENYTOIN 100 MG/4 ML UDC (DILANTIN) GT SCH ×3 (05:28→21:52)
[2019-04-15 05:49] LABS: BASOPHILS # (AUTO) 0.1 K/uL (0.0-0.2); EOSINOPHILS # (AUTO) 0.2 K/uL (0.0-0.4); EOSINOPHILS % (AUTO) 1.8 % (0.0-4.0); HEMATOCRIT 29.4 % (36-54); HEMOGLOBIN 9.5 g/dL (14.0-18.0); LYMPHOCYTES # (AUTO) 2.2 K/uL (1.0-5.5); LYMPHOCYTES % (AUTO) 23.7 % (20.5-51.5); MEAN CORPUSCULAR HEMOGLOBIN 31 pg (27-31); MEAN CORPUSCULAR HGB CONC 33 % (32-36); MEAN CORPUSCULAR VOLUME 95 fL (79.0-98.0); MONOCYTES # (AUTO) 0.8 K/uL (0.0-1.0); MONOCYTES % (AUTO) 8.4 % (1.7-9.3); NEUTROPHILS % (AUTO) 65.1 % (40.0-70.0); PLATELET COUNT (AUTO) 184 K/uL (130-430); RED CELL DISTRIBUTION WIDTH 14.8 % (9.0-15.0); WHITE BLOOD COUNT (AUTO) 9.2 K/uL (4.8-10.8)
[2019-04-15 06:25] LABS: CALCIUM 8.3 mg/dL (8.4-11.0); CREATININE 0.45 mg/dL (0.55-1.30); POTASSIUM 3.7 mmol/L (3.5-5.1)
--- NOTE | 2019-04-15 07:25 | NUR ---
ENDORSEMENT Report given oncoming dayshift RN using SBAR format and pt care was endorsed. No signs of acute distress or discomfort noted.
--- NOTE | 2019-04-15 07:26 | NUR ---
OPENING NOTE Report received from Bob IVY at bedside. Patient resting in the bed with eyes closed. No acute distress. Trach intact to vent: AC=18, TY=508, FIO2=40%. HOB elevated. GT intact, patent. Not on feeding at this time, formula not available at this time. Will follow up.F/C intact, drain gravity. ON contact isolation. Safety measure maintained. Bed locked in low position, padded side rails up. Call light within reached. Will continue to monitor.
--- NOTE | 2019-04-15 08:40 | NUR ---
SEEN AND EXAMINED BY SHERIN LEIJA.
[2019-04-15] MEDS: PANTOPRAZOLE SODIUM 40 MG/VIAL (PROTONIX) IVP SCH (08:41)
[2019-04-15] MEDS: CHLORHEXIDINE GLUCONATE 15 ML/DOSE, 480 ML MM SCH ×2 (08:41→20:42)
[2019-04-15] MEDS: DOCUSATE SODIUM 100 MG/10 ML UDC GT SCH ×2 (08:41→20:41)
[2019-04-15] MEDS: SENNA 8.8 MG/5 ML UDC GT SCH ×2 (08:43→20:32)
[2019-04-15] MEDS: CEFEPIME 1 GM in D5W 50 ML IV SCH ×2 (08:43→20:29)
[2019-04-15] MEDS: MULTIVITAMINS,THERAPEUTIC 5 ML UDC GT SCH (08:43)
[2019-04-15] MEDS: CALCIUM CARBONATE/VITAMIN D3 1 TAB TABLET GT SCH ×2 (08:46→20:32)
[2019-04-15] MEDS: ENOXAPARIN SODIUM 40 MG/0.4 ML SYRINGE SUBCUT SCH (08:46)
--- NOTE | 2019-04-15 10:05 | NUR ---
SEEN AND EXAMINED BY MANAN CAMPOS WITH ORDER RECEIVED.
--- NOTE | 2019-04-15 10:55 | NUR ---
CHG BATH GIVEN, PROCEDURE TOLERATED WELL.
--- NOTE | 2019-04-15 11:12 | NUR ---
GT FEEDING Per mail carrier and clerk may change to Jevity 1.5 after current Vital bottle empty.
[2019-04-15] MEDS: 0.45% NACL 1,000 ML IV SCH (11:17)
[2019-04-15] MEDS: VANCOMYCIN HCL 1,250 MG in NS 250 ML IV SCH ×2 (11:19→23:07)
--- NOTE | 2019-04-15 11:25 | NUR ---
Nutrition F/U RD reviewed pt's current EMR record including diet Hx, physician notes, nursing notes, pertinent labs/meds/procedures, care trends, and care activity. Admission Dx: Sepsis, UTI, chronic respiratory failure, vent dependent Pt also found w/ septic shock, UTI, respiratory failure, cerebral palsy per physician notes PMH: dysphagia, tracheostomy, GT placement per physician notes Current Diet Order/Nutrition Support: Vital AF 1.2 at 65 ml/hr (goal rate), Manav BID, Free Water Flush: 100 Q 6 HR via GT x1 day Subjective Info: Pt was seen resting in bed w/ TF infusing as per physician order w/ RN providing care at bedside. RN reported has been tolerating TF well today; possible plans to administer suppository d/t no BM for past [address] recommended to swap TF formula Vital AF 1.2 to Jevity 1.5 d/t lack of supply of Vital AF 1.2 at this time. RN acknowledged to endorse modification of TF formula once current bottle of Vital AF 1.2 is empty. Per physician notes, possible transfer to telemetry. NEW Estimated Energy Expenditure (kcals/day) -- Ve: 11/Temperature: 36.8 degrees Celsius 2011 kcal/day (PSU 2003b for critical illness, vent support) Estimated Protein Required (g/day) 126-168 gm/day (1.5-2 gm/kg IBW for sepsis) Estimated Fluid Required (l/day) 2520ml/day (30ml/kg IBW for maintenance) Problem/Etiology/Signs/Symptoms Inadequate EN intake r/t current EN prescription AEB EN intake meets <70% of est needs. *met Increased protein-energy needs r/t metabolic demands AEB increased estimated calorie and protein needs for sepsis. *ongoing Expected Outcomes/Goals Monitor EN tolerance and intake w/ goal of pt meeting at least 75% of estimated nutritional needs, labs trending WNL, normal GI function, skin integrity/wt maintenance. Dietitian Recommendations * Recommend Jevity 1.5 at 50 ml/hr, Manav BID, Prosource BID, Free Water Flush: 100 ml Q6h via GT Provides: 2080 kcal/day, 112 gm protein/day, and 1372 ml free water/day Meets: 103% of estimated caloric needs and 89% of lower end of estimated protein needs Follow Up High Risk: F/U in 2-3 days
--- NOTE | 2019-04-15 11:30 | NUR ---
Dietitian Recommendations * Recommend Jevity 1.5 at 50 ml/hr, Manav BID, Prosource BID, Free Water Flush: 100 ml Q6h via GT Provides: 2080 kcal/day, 112 gm protein/day, and 1372 ml free water/day Meets: 103% of estimated caloric needs and 89% of lower end of estimated protein needs Please refer to Nutrition F/U for details.
--- NOTE | 2019-04-15 11:31 | NUR ---
OG=[id number] No insulin needed per sliding scale.
--- NOTE | 2019-04-15 11:35 | NUR ---
SEEN AND EXAMINED BY ROB ARELLANO.
--- NOTE | 2019-04-15 13:10 | NUR ---
ROUND Patient resting in the bed. No acute distress. Trach intact to vent. GT intact, patent, continue on GT feeding, tolerated well. HOB elevated. PICC line intact, IVF infusing well. F/C intact, drain gravity. Safety measure maintained. Padded side rails up, bed locked in low position. Call light within reached. Continue to monitor.
--- NOTE | 2019-04-15 15:20 | NUR ---
ROUND Patient resting in the bed with eyes closed. No acute distress. Trach intact to vent. GT intact, patent, continue on GT feeding, tolerated well. HOB elevated. PICC line intact, IVF infusing well. F/C intact, drain gravity. Mother at bedside. Safety measure maintained. Padded side rails up, bed locked in low position. Call light within reached. Continue to monitor.
--- NOTE | 2019-04-15 15:30 | NUR ---
SS NOTES: PHYSICAL METEOROLOGIST received a call back from sister Brianda who stated that the patient has been a resident at [facility] for 18 years and is connected with the [facility] in [place]. Per sister, the patient has been in his current state since he was 14 years old, after manifesting headaches but no trauma (chart review states cerebral palsy). Prior to that, the patient was independent on all ADL's and ambulation and became dependent after discharge. Family took care of him at home for 5 years until he turned 19 and moved to [facility]. When discharged, family wishes for patient to go back to [facility] and no preference on HHS. Pt does not have an advanced directive but mother, Odalys will make medical decisions.
[2019-04-15] MEDS: BISACODYL 10 MG/SUPPOSITORY RC SCH (17:00)
--- NOTE | 2019-04-15 17:16 | NUR ---
LF=[id number] No insulin needed per sliding scale.
--- NOTE | 2019-04-15 19:28 | NUR ---
CLOSING NOTE Report received from Bob IVY at bedside. Patient resting in the bed with eyes closed. No acute distress. Trach intact to vent: AC=18, RG=873, FIO2=40%. HOB elevated. GT intact, patent, GT feeding tolerated well. F/C intact, drain gravity. On contact isolation. Family at bedside. All needs met. No seizure activity noted during shift. Safety measure maintained. Bed locked in low position, padded side rails up. Call light within reached. Report and SBAR given to CATA Mcnally at bedside.
--- NOTE | 2019-04-15 19:30 | NUR ---
RECEIVED REPORT FROM NAIMA,PATIENT IS MECHANICALLY VENTED THRU HIS TRACH,ON AC MODE RATE OF 18 WITH 40% FIO2 SATURATING 97-98%.PATIENT FAMILY AT BEDSIDE ,PATIENT IS NOT RESPONSIVE TO VERBAL STIMULI,EYES ARE HAFWAY OPEN ALL HIS EXTREMITIES ARE CONTRACTED,PATIENT IS FEBRILE AT 101 AXILLARY INITIALLY,MEDICATED WITH TYLENOL 650 MG YHRU HIS PEG.PATIENT HAS GT IN PLACE AND IS ON CONTINOUS FEEDING WITH VITAL AT 60CC/HR/DAMON CATH IN PLACE URINE OUTPUT IS GOOD CLEAR YELLOW. REPOSITIONED AND KEPT HEAD OF BED ELEVATED 40 DEGREES.
[2019-04-15] MEDS: ACETAMINOPHEN 650 MG/20.3 ML UDC GT PRN (20:02)
[2019-04-16] VITALS (25 sets, daily range): BP systolic 113–155
[2019-04-16] MEDS: ALBUTEROL SULFATE 0.083% 2.5 MG/3 ML VIAL.NEB INH SCH ×5 (02:41→23:02)
[2019-04-16] MEDS: metroNIDAZOLE 500 mg/NS 100 ML IV SCH ×3 (05:21→22:00)
[2019-04-16] MEDS: PHENYTOIN 100 MG/4 ML UDC (DILANTIN) GT SCH ×3 (05:22→22:39)
[2019-04-16 06:41] LABS: ALBUMIN 2.4 g/dL (3.4-4.8); CALCIUM 8.5 mg/dL (8.4-11.0); CREATININE 0.35 mg/dL (0.55-1.30); TOTAL BILIRUBIN 0.5 mg/dL (0.0-1.0)
[2019-04-16 06:48] LABS: POTASSIUM 3.3 mmol/L (3.5-5.1)
--- NOTE | 2019-04-16 07:50 | NUR ---
AM ASSESSMENT. PT RESPONSIVE TO PAINFUL STIMULI, TURNED AND REPOSITIONED IN BED, AFEBRILE, GRIMACING WHILE ORAL HYGIENE IS BEING DONE, PT OBESE, CONTRACTED TO ALL EXTREMITIES, ABDOMEN SOFT ON PALPATION , NOTED WITH 40 ML GASTRIC RESIDUAL, HEAD OF BED ELEVATED MAINTAINED BETWEEN 35 TO 40 DEGREE ANGLE, HEEL PROTECTORS TO BOTH FEET, HEELS DRY, DAMON CATHETER DRAINING SUAMYA COLOR URINE.
[2019-04-16] MEDS: CEFEPIME 1 GM in D5W 50 ML IV SCH ×2 (08:34→22:55)
[2019-04-16] MEDS: PANTOPRAZOLE SODIUM 40 MG/VIAL (PROTONIX) IVP SCH (08:34)
[2019-04-16] MEDS: SENNA 8.8 MG/5 ML UDC GT SCH ×2 (08:35→22:39)
[2019-04-16] MEDS: CALCIUM CARBONATE/VITAMIN D3 1 TAB TABLET GT SCH ×2 (08:36→22:39)
[2019-04-16] MEDS: MULTIVITAMINS,THERAPEUTIC 5 ML UDC GT SCH (08:37)
[2019-04-16] MEDS: ENOXAPARIN SODIUM 40 MG/0.4 ML SYRINGE SUBCUT SCH (08:39)
[2019-04-16] MEDS: CHLORHEXIDINE GLUCONATE 15 ML/DOSE, 480 ML MM SCH ×2 (08:40→22:41)
[2019-04-16] MEDS: DOCUSATE SODIUM 100 MG/10 ML UDC GT SCH ×2 (08:42→22:40)
[2019-04-16] MEDS: 0.45% NACL 1,000 ML IV SCH (08:44)
[2019-04-16] MEDS: VANCOMYCIN HCL 1,250 MG in NS 250 ML IV SCH (11:26)
[2019-04-16] MEDS: INSULIN REGULAR, HUMAN 100 UNITS/ML, 10 ML VIAL (humuLIN R) SUBCUT PRN ×2 (11:44→23:02)
--- NOTE | 2019-04-16 12:50 | NUR ---
Wound Evaluation: Wound Consult ordered for Low Lalo Score. Patient evaluated for a low Lalo score of 10. Patient was obtunded and received in a Shun Bed with an Isoflex NOEMY mattress with low air loss therapy. Patient needs to be turned in bed. Skin assessment: 1. Left Medial Heel: Open healing bulla, present on admission. Site has 100% pink tissue. No odor, no drainage. Janna-site intact. Site measures 1.5 cm x 1.5 cm. 2. Right Posterior Heel: Open healing bulla, present on admission. Site has 100% pink tissue. No odor, no drainage. Janna-site intact. Site measures 1.9 cm x 1.9 cm. Recommend: Elevate, offload and float bilateral heels with one pillow lengthwise under each extremity at all times. Recommend reposition patient every 2 hours with pillow support. Elevate, off-load and float bilateral heels with one pillow lengthwise under each extremity at all times. Offload pressure areas with pillows for pressure re-distribution. Perform skin care and monitor skin integrity Q shift. Use moisture barrier cream on moisture susceptible areas QID and PRN for soiling. Maintain patient on a low air-loss mattress.
--- NOTE | 2019-04-16 14:50 | NUR ---
TO [facility]. TRANSFERRED PT TO ROOM 119-A, R.T ACCOMPANIED PT VIA BED, REPORT GIVEN TO CATA TAM.
--- NOTE | 2019-04-16 15:05 | NUR ---
RECEIVED PT FROM ICU Received report from [facility] SOLDERER DIPPER. Received pt on vent via trach, vent settings verified. Pt on air mattress, pt repositioned with pillow support and heels [id number] pt with heel protectors in place. Pt on Jevity 1.5 via G-tube at ordered rate with no residual noted. IVF infusing well to TOM PICC at ordered rate with no s/s infiltration to site. TOM PICC dressing clean, dry and intact. Escobar draining to gravity with yellow urine. Pt placed on telemetry with pulse oximeter. Pt on contact isolation precautions for MDRO+ of the urine. Aspiration, skin, seizure and safety precautions in place.
[2019-04-16] MEDS ORDERED: POTASSIUM CHLORIDE 20 MEQ/PKT PACKET PO ONE (15:45)
--- NOTE | 2019-04-16 15:54 | NUR ---
Discharge Planning: DCP faxed pt referral to [facility] (f [phone] p [phone]) DCP to follow up
--- NOTE | 2019-04-16 19:01 | NUR ---
CLOSING NOTE Pt resting in bed with no s/s resp distress, no s/s pain or discomfort. Contact isolation precautions maintained throughout shift. No changes, all precautions remain in place.
--- NOTE | 2019-04-16 19:10 | NUR ---
OPENING NOTES Patient on ventilator setting of FiO2 of 40%, AC of 18, TV of 450. Patient eyes close, withdraws to pain. Family at bed side. NO signs of respiratory distress noted. Breathing even and unlabored. IVF infusing well, patency noted. G-tube feeding infusing well. Escobar catheter, draining by gravity. Call light within reach. Bed locked and lowest position. Safety precautions in place. Will continue to monitor patient.
--- NOTE | 2019-04-16 21:29 | NUR ---
NOTES/ SEIZURE Family verbalized that patient is shaky, seizure like symptoms. Upon assessment, uncontrollable jerking of hands. elevated HR of 100 for over 2 mins, seizure precautions in place. PRN for seizure medication will be administer per order. Will continue to monitor.
[2019-04-16] MEDS: LORazepam 2 MG/ML VIAL IVP PRN (21:35)
--- NOTE | 2019-04-16 22:40 | NUR ---
MED PASS Due medication given at this time via G-Tube. G-tube, no residual noted. Flushing well. Patient eyes close, vital signs within normal limits. No signs of respiratory distress and discomfort noted. Breathing even and unlabored. IVF's infusing well, patency noted. On contact precautions. Escobar catheter, attached and secured, draining by gravity. Safety precautions in place. Will continue to monitor patient.
[2019-04-16] MEDS ORDERED: metroNIDAZOLE 500 mg/NS 200 ML IV ONE (23:00)
[2019-04-16] MEDS ORDERED: CEFEPIME 1 GM/VIAL (MAXIPIME) ONE (23:00)
--- NOTE | 2019-04-16 23:02 | NUR ---
BS 131 BS checked done at this time. No coverage needed. Patient has no signs of respiratory distress and discomfort noted. Repositioned every 2 hours. Heels floating. Safety precautions in place. Will continue to monitor patient.
[2019-04-17] MEDS: VANCOMYCIN HCL 1,250 MG in NS 250 ML IV SCH (00:51)
[2019-04-17] MEDS: ACETAMINOPHEN 650 MG/20.3 ML UDC GT PRN ×2 (01:03→15:09)
--- NOTE | 2019-04-17 02:25 | NUR ---
RN ROUNDS Patient eyes close. No signs of respiratory distress and discomfort noted. Breathing even and unlabored. IVF infusing well, patency noted. Escobar attached and secured, draining by gravity. On contact precautions maintained. Safety precautions in place. Will continue to monitor patient
[2019-04-17] MEDS: ALBUTEROL SULFATE 0.083% 2.5 MG/3 ML VIAL.NEB INH SCH ×5 (03:35→19:42)
--- NOTE | 2019-04-17 04:18 | NUR ---
PICC LINE DRESSING CHANGE PICC line dressing change at this time, sterile technique maintained. Patient tolerated well. Patient has no signs of respiratory distress and discomfort noted. Breathing even and unlabored. Safety precautions in place. Will continue to monitor patient
--- NOTE | 2019-04-17 05:00 | NUR ---
PERICARE/NEW G-TUBE FEEDING HUNG Pericare done at this time with help of Lissette SARKAR, patient tolerated well. New G-tube feeding hung, infusing well. IVF's infusing well, patency noted. No signs of respiratory distress and discomfort noted. Breathing even and unlabored. Escobar catheter, attached and secured, draining by gravity. Safety precautions in place. Will continue to monitor patient
[2019-04-17] MEDS: metroNIDAZOLE 500 mg/NS 100 ML IV SCH (05:21)
[2019-04-17] MEDS: PHENYTOIN 100 MG/4 ML UDC (DILANTIN) GT SCH ×2 (05:21→14:39)
[2019-04-17] MEDS: INSULIN REGULAR, HUMAN 100 UNITS/ML, 10 ML VIAL (humuLIN R) SUBCUT PRN (05:26)
--- NOTE | 2019-04-17 06:37 | NUR ---
CLOSING NOTES Patient on ventilator setting of FiO2 of 40%, AC of 18, TV of 450. Patient eyes close, withdraws to pain. Does not follow commands. NO signs of respiratory distress noted. Breathing even and unlabored. IVF infusing well, patency noted. G-tube feeding infusing well, free flushed done, patency noted. Escobar catheter, attached and secured, draining by gravity. Heels floating on pillows. Call light within reach. Bed locked and lowest position. Safety precautions in place. All needs met throughout the shift. Will continue to monitor until endorse to oncoming shift nurse for continuity of care.
--- NOTE | 2019-04-17 07:00 | NUR ---
OPENING NOTES PT RESTING IN BED. CHEST RISE AND FALL NOTED. PT ON VENT SETTING OF FI02 AT 40%, AC 18, TV OF 450. OXYGEN SATURATION AT 99%. PT WITHDRAWS TO PAIN. NO ACUTE DISTRESS NOTED. NONLABORED BREATHING NOTED. G-TUBE INTACT AND PATENT, FEEDING RUNNING ORDERED, TOLERATING WELL. DAMON CATHETER INTACT AND PATENT, DRAINING WELL. ALL NEEDS MET. CALL LIGHT IN REACH. FALL AND ASPIRATION AND ISOLATION PRECAUTIONS IN PLACE. BED LOCKED AND IN LOWEST POSITION. BED ALARM ON. CONTINUE TO MONITOR.
[2019-04-17 08:00] VITALS: BP_SYST 143
[2019-04-17] MEDS: SENNA 8.8 MG/5 ML UDC GT SCH (09:03)
[2019-04-17] MEDS: DOCUSATE SODIUM 100 MG/10 ML UDC GT SCH (09:03)
[2019-04-17] MEDS: CALCIUM CARBONATE/VITAMIN D3 1 TAB TABLET GT SCH (09:03)
--- NOTE | 2019-04-17 09:03 | NUR ---
ROUTINE MEDS ROUTINE MEDS ADMINISTERED ORDERED PER MD, EDUCATION GIVEN, TOLERATED WELL. NO ACUTE DISTRESS NOTED. ALL NEEDS MET. CALL LIGHT IN REACH. CONTINUE TO MONITOR.
[2019-04-17] MEDS: ENOXAPARIN SODIUM 40 MG/0.4 ML SYRINGE SUBCUT SCH (09:05)
[2019-04-17] MEDS: PANTOPRAZOLE SODIUM 40 MG/VIAL (PROTONIX) IVP SCH (09:06)
[2019-04-17] MEDS: MULTIVITAMINS,THERAPEUTIC 5 ML UDC GT SCH (09:08)
[2019-04-17] MEDS: CHLORHEXIDINE GLUCONATE 15 ML/DOSE, 480 ML MM SCH (09:08)
[2019-04-17] MEDS: 0.45% NACL 1,000 ML IV SCH (09:09)
--- NOTE | 2019-04-17 10:20 | NUR ---
SKINCARE/ REPOSITIONING ASSISTED MELLO MANZO WITH SKINCARE AND REPOSITIONING. TOLERATED WELL. NO ACUTE DISTRESS NOTED. ALL NEEDS MET. CALL LIGHT IN REACH. CONTINUE TO MONITOR.
--- NOTE | 2019-04-17 11:10 | NUR ---
DC Planning: Jerry Dial at [facility] (f [phone] p [phone]): the pt is accepted at [facility]. The transfer is pending authorization from [facility] insurance. Addendum: 04/17/19 at 1137 by Roby Larson RN >>Faxed request for [facility] authorization to [facility] , tel# [phone]. Addendum: 04/17/19 at 1441 by Roby Larson RN >> Received call from Dinesh at [facility] stated: he gave authorization to [facility]. will confirm with [facility]. Jerry Montiel: for transportation , may use logistic care, no authorization required. -- Brianda, pt's sister # [phone] made aware that the pt may possible be transferred to [facility] once have bed assignment and ambulance set up. Brianda agreed with the POC.
--- NOTE | 2019-04-17 11:11 | NUR ---
ACCUCHECK DONE ACCUCHECK DONE, RESULT 115 MG/DL. EDUCATION GIVEN, TOLERATED WELL. FAMILY AT BEDSIDE. NO ACUTE DISTRESS NOTED. ALL NEEDS MET. CALL LIGHT IN REACH. CONTINUE TO MONITOR.
[2019-04-17 11:59] VITALS: BP_SYST 121
[2019-04-17 12:10] VITALS: BP_SYST 137
[2019-04-17] MEDS: BISACODYL 10 MG/SUPPOSITORY RC SCH (13:22)
--- NOTE | 2019-04-17 13:22 | NUR ---
PRN MEDS PRN MEDS ADMINISTERED ORDERED PER MD. EDUCATION GIVEN, TOLERATED WELL. MOTHER AT BEDSIDE. NO ACUTE DISTRESS NOTED. ALL NEEDS MET. CALL LIGHT IN REACH. CONTINUE TO MONITOR.
--- NOTE | 2019-04-17 14:37 | NUR ---
WOUND CARE DONE WOUND CARE DONE, EDUCATION GIVEN, TOLERATED WELL. MOTHER AT BEDSIDE. NO ACUTE DISTRESS NOTED. ALL NEEDS MET. CALL LIGHT IN REACH. CONTINUE TO MONITOR.
--- NOTE | 2019-04-17 14:39 | NUR ---
Nutrition F/U RD reviewed pt's current EMR record including diet Hx, physician notes, nursing notes, pertinent labs/meds/procedures, care trends, and care activity. Admission Dx: Sepsis, UTI, chronic respiratory failure, vent dependent PMH: dysphagia, tracheostomy, GT placement per physician notes MD notes septic shock resolved, transferred out of ICU on 04/17/19. Current Diet Order/Nutrition Support: Jevity 1.5 at 50 ml/hr, Manav BID, Prosource BID, Free Water Flush: 100 ml Q6h via GT Provides: 2080 kcal/day, 112 gm protein/day, and 1372 ml free water/day Meets: 103% of estimated caloric needs and 89% of lower end of estimated protein needs Subjective Info: Pt seen resting in bed with trach and TF at bedside as ordered with 50ml enfused. Pt remains unresponsive to verbal stimuli. Per RN note, 0ml residuals today and yesterday with 1 BM on 04/15/19. Supervisor Sanding notes open healing bulla to the left medial heel and right posterior heel on 04/16/19. TF regimen is currently meeting nutritional needs. NEW Estimated Energy Expenditure (kcals/day) -- Ve: 11/Temperature: 36.8 degrees Celsius 2012 kcal/day (PSU 2003b for critical illness, vent support) Estimated Protein Required (g/day) 126-168 gm/day (1.5-2 gm/kg IBW for sepsis) Estimated Fluid Required (l/day) 2520ml/day (30ml/kg IBW for maintenance) Problem/Etiology/Signs/Symptoms Inadequate EN intake r/t current EN prescription AEB EN intake meets <70% of est needs. *met Increased protein-energy needs r/t metabolic demands AEB increased estimated calorie and protein needs for sepsis. *improving Expected Outcomes/Goals Monitor EN tolerance and intake w/ goal of pt meeting at least 75% of estimated nutritional needs, labs trending WNL, normal GI function, skin integrity/wt maintenance. Dietitian Recommendations * Continue Jevity 1.5 at 50 ml/hr, Mnaav BID, Prosource BID, Free Water Flush: 100 ml Q6h via GT Follow Up High Risk: F/U in 2-3 days Addendum: 04/17/19 at [address] Nutrition Consult received for Lalo Score 10.
--- NOTE | 2019-04-17 14:42 | NUR ---
Dietitian Recommendations * Continue Jevity 1.5 at 50 ml/hr, Manav BID, Prosource BID, Free Water Flush: 100 ml Q6h via GT Please see Nutrition Follow Up for further details. LT, RD
--- NOTE | 2019-04-17 14:52 | NUR ---
[phone]: Jerry Pritchett dispatcher: unable to set up the CCT at this time. the pt required bed assignment at the receiving facility.
[2019-04-17 16:05] VITALS: BP_SYST 152
--- NOTE | 2019-04-17 16:15 | NUR ---
DC PLANNING Set up CCT Ambulance transfer ariel Jack @ [facility], [place], , Reservation #[id number]. Aware trach/vent & isolation. Will call nsg station with ETA. Pt's nurse aware.
[2019-04-17 16:30] VITALS: BP_SYST 121
--- NOTE | 2019-04-17 16:30 | NUR ---
ROUNDS PT RESTING IN BED. CHEST RISE AND FALL NOTED. NO ACUTE DISTRESS NOTED. NONLABORED BREATHING NOTED. ALL NEEDS MET. CALL LIGHT IN REACH. FAMILY AT BEDSIDE. CONTINUE TO MONITOR.
--- NOTE | 2019-04-17 16:41 | NUR ---
AMBULANCE SPOKE TO GAMAL FROM [facility] [phone] AND CONFIRMED [facility] OF [facility] BY [facility] WITH CONFIRMATION #[phone]
--- NOTE | 2019-04-17 16:45 | NUR ---
CLOSING NOTE PATIENT RESTING IN BED. CHEST RISE AND FALL NOTED. NONLABORED BREATHING. PT STABLE. VITAL SIGNS STABLE. NO ACUTE DISTRESS NOTED. FALL AND ASPIRATION PRECAUTIONS IN PLACE. ALL NEEDS MET. CALL LIGHT IN REACH. WAITING FOR PICK-UP FOR TRANSFER TO [facility]. MOTHER AT BEDSIDE. ENDORSED CARE TO CATA NICE.
--- NOTE | 2019-04-17 18:30 | NUR ---
GAVE REPORT TO CATA DAVEY FROM [facility] FOR TRANSFER.
[2019-04-17] MEDS ORDERED: CEFEPIME 1 GM in D5W 50 ML IV SCH (21:00)
--- NOTE | 2019-04-17 21:05 | NUR ---
CLOSING NOTES PATIENT DISCHARGED TO [facility] ORDERED WITH STABLE VITAL SIGNS VIA AMBULANCE. ALL NEEDS ATTENDED TO. FAMILY AT THE BEDSIDE.
== END 2019-04-17 21:07 | DRG 720 ==
LOC: SED 03:50 → SIC 09:46 → STU 04-16 14:20
PROVIDERS: ADMIT Family Medicine; ATTEND Family Medicine
PROC: 5A1955Z Respiratory Ventilation, Greater than 96 Consecutive Hours (ICD-10-PCS; principal; 2019-04-10)
PROC: 02HV33Z Insertion of Infusion Device into Superior Vena Cava, Percutaneous Approach (ICD-10-PCS; 2019-04-10)
DX: A41.9 Sepsis, unspecified organism (principal); R65.21 Severe sepsis with septic shock; J69.0 Pneumonitis due to inhalation of food and vomit; G93.40 Encephalopathy, unspecified; Z99.11 Dependence on respirator [ventilator] status; J15.1 Pneumonia due to Pseudomonas; E87.2 Acidosis; J96.10 Chronic respiratory failure, unspecified whether with hypoxia or hypercapnia; G80.9 Cerebral palsy, unspecified; D69.6 Thrombocytopenia, unspecified; E87.6 Hypokalemia; D64.9 Anemia, unspecified; G40.909 Epilepsy, unspecified, not intractable, without status epilepticus; I47.1 Supraventricular tachycardia; K21.9 Gastro-esophageal reflux disease without esophagitis; R73.9 Hyperglycemia, unspecified; N12 Tubulo-interstitial nephritis, not specified as acute or chronic; Z93.0 Tracheostomy status; Z93.1 Gastrostomy status
CPT/HCPCS: 36415; 36600; 71045; 80048; 80053; 80185-TC; 80202-TC; 81000-TC; 82550-TC; 82803-TC; 82962; 83036; 83605; 83735-TC; 83880; 84484; 85025; 85610-TC; 85730-TC; 87040-TC; 87070-TC; 87081; 87086; 87186-TC; 87205-TC; 93005; 93306; 94002; 94003; 94640; 94760; 95816; 96365; 96366; 96375; 99291; 99292; C1751; C9113; G0378; J0153; J0282; J0692; J1165; J1650; J1815; J1885; J1956; J2060; J3370; J3480; J3490; J7030; J7042; J7050; J7060; J7613

== ENCOUNTER 2021-07-18 17:58 | Inpatient (IN) | payer MEDICAID ==
[~2021-07-18] VITALS: Ht 165.1 cm; Wt 76.7 kg
[~2021-07-18 17:58] MED LIST changes: +AMIN30LI2 GT; +ASCO500S10 GT; +ATROVENT; +CARB15DR OP; +CLON1TAB12 GT; +DOCU-144 GT; -OMEP20CA11 GT; +OMEP20CA15 GT; +SENN8.6T19 GT; +TRAM50TA2 GT; +VITD400 GT
--- NOTE | 2021-07-18 18:07 | NUR ---
Placed in room 8 . Placed on customer service associate, blood pressure machine and pulse oximeter. To gown for exam. Side rails up. Report given to CATA KEYS.
[2021-07-18] MEDS ORDERED: NACL 0.9% 1,000 ML IV ONE (19:30)
[2021-07-18 19:54] LABS: CALCIUM 9.1 mg/dL (8.4-11.0); CREATININE 0.56 mg/dL (0.55-1.30); POTASSIUM 4.2 mmol/L (3.5-5.1)
[2021-07-18 19:56] LABS: HEMATOCRIT 37.1 % (36-54); HEMOGLOBIN 11.8 g/dL (14.0-18.0); MEAN CORPUSCULAR HEMOGLOBIN 28 pg (27-31); MEAN CORPUSCULAR HGB CONC 32 % (32-36); MEAN CORPUSCULAR VOLUME 86 fL (79.0-98.0); PLATELET COUNT (AUTO) 245 K/uL (130-430); RED CELL DISTRIBUTION WIDTH 22.3 % (9.0-15.0)
[2021-07-18 19:57] LABS: INR 1.2 (0.80-1.20); PROTHROMBIN TIME 12.4 SECS (9.5-12.5)
[2021-07-18 20:00] LABS: ALBUMIN 2.6 g/dL (3.4-4.8); TOTAL BILIRUBIN 0.5 mg/dL (0.0-1.0)
[2021-07-18 20:01] LABS: WHITE BLOOD COUNT (AUTO) 34.2 K/uL (4.8-10.8)
--- NOTE | 2021-07-18 20:01 | NUR ---
MARY Seo called to report Critical Lab Value: WBC 34.2 MD Campo was made aware.
--- NOTE | 2021-07-18 20:03 | NUR ---
Received trached vented pt from previous shift, H cerebral palsy. Pt currently lying supine on gurney with decorticate posturing. Not open his eyes, not follow command. Moaning facial gesture noted. Non verbal. Volume AC with setting 14,400, 45, 5, 40%. Suctioned PRN. Current temp 98.4. HR 126, SpO2 96%, BP 119/74. PEG noted to LUQ abd. Ice applied for cold measurement. Noted dependent edema to bilateral pedal and bilateral ankle. Addendum: 07/18/21 at 2314 by [email or web address] CATA Quevedo
[2021-07-18] MEDS ORDERED: PIPERACILLIN/TAZO 3.375 GM in NS 50 ML IV ONE (21:15)
[2021-07-18] MEDS ORDERED: VITD2000 GT (21:17)
[2021-07-18] MEDS ORDERED: BISA10SU77 RC (21:17)
[2021-07-18] MEDS ORDERED: TRAM50TA2 GT (21:17)
[2021-07-18] MEDS ORDERED: AMIN30LI2 PO (21:17)
[2021-07-18] MEDS ORDERED: DOXY100C GT (21:17)
[2021-07-18] MEDS ORDERED: ZINC50TA69 GT (21:17)
[2021-07-18] MEDS ORDERED: ASCO500S10 GT (21:17)
--- NOTE | 2021-07-18 21:42 | NUR ---
Per Dr. Campo's request, Pgd. Dr. Bacon for admission orders.
--- NOTE | 2021-07-18 21:55 | NUR ---
Admit bed requested Patient will be admitted to care of . Admitted to TELE unit. Diagnosis SEPSIS Inpatient (Yes or No) YES Observation (Yes or No) NO Orientation concerns or request close to nursing station (Yes or No) YES Covid Status NEGATIVE On vent or bipap YES Needs a sitter [] From Home (Yes or if No enter name of facility) [facility] Requires Dialysis (Yes or No) NO Med Rec Completed (Yes of No) YES Addendum: 07/18/21 at 2207 by [email or web address] ADMIT TO ICU
[2021-07-18] MEDS ORDERED: VANCOMYCIN HCL 1,000 MG in NS 250 ML IV ONE (22:00)
[2021-07-18] MEDS ORDERED: NACL 0.9% 2,000 ML IV ONE (22:00)
[2021-07-18] MEDS ORDERED: PIPERACILLIN/TAZO 4.5 GM in NS 100 ML IV ONE (22:00)
[2021-07-18] MEDS ORDERED: PIPERACILLIN/TAZOBACTAM 3.375 GM/VIAL (ZOSYN) IV ONE (22:02)
--- NOTE | 2021-07-18 22:18 | NUR ---
Dr Bacon change the admit order to Tele admit.
[2021-07-18] MEDS ORDERED: traMADol HCL HCL 50 MG TABLET (ULTRAM) GT PRN (22:30)
[2021-07-18] MEDS ORDERED: SENNOSIDES 8.6 MG TABLET GT PRN (22:30)
[2021-07-18] MEDS ORDERED: IPRATROPIUM BROM 0.5 MG/2.5 ML VIAL.NEB (ATROVENT) INH SCH (22:30)
[2021-07-18] MEDS ORDERED: PEG 400/HYPROMELLOSE/GLYCERIN 15 ML DROPS OP PRN (22:30)
[2021-07-18 23:09] LABS: BAND % (MANUAL) 20 % (0-6); BASOPHILS % (MANUAL) 0 % (0-2); EOSINOPHILS % (MANUAL) 0 % (0-7); LYMPHOCYTES % (MANUAL) 6 % (20-46); MONOCYTES % (MANUAL) 1 % (0-11)
[2021-07-18] MEDS ORDERED: VANCOMYCIN HCL 1 GM/NS PREMIX 250 ML IV ONE (23:30)
--- NOTE | 2021-07-18 23:50 | NUR ---
RECEIVED REPORT ON PATIENT FROM CATA HUNTER, ASSUMED CARE, AND STARTED ASSESSMENT,PATIENT IS CONTRACTED, DECORTICATE POSTURING, FOOT DROP AND NONRESPONSIVE TO VERBAL STIMULUS. WILL CONTINUE TO MONITOR AND ASSESS FOR SAFETY AND COMFORT.
[2021-07-18 23:57] VITALS: BP_SYST 115
--- NOTE | 2021-07-19 00:08 | NUR ---
Patient will be admitted to [116 B] unit. Pt transfer to new unit accompanied by RN and RT. Full report was given to CATA Castorena at bed side. Belongings list completed. Complete and up to date summary report printed. SBAR report to be given at bedside with opportunity for questions. Addendum: 07/19/21 at 0010 by [email or web address] CATA Quevedo
[2021-07-19] MEDS ORDERED: PIPERACILLIN/TAZOBACTAM 4.5 GM/VIAL (ZOSYN) IV ONE (00:45)
[2021-07-19] MEDS ORDERED: VANCOMYCIN HCL 1000 MG/VIAL IV ONE (00:58)
--- NOTE | 2021-07-19 01:10 | NUR ---
CALLED ER AND TALKED WITH THE NURSE WHO TOOK CARE OF THE PT IN ER , CLARIFIED THE IV ACCESS ; RN STATED PTS IV ON THE LEFT CHEST TRIPLE LUMEN IS THE ONLY IV ACCESS , ITS NOT FOR DIALYSIS ,AND ER NURSE ACCESSED IT AND WAS GIVING MEDICATION AND IV FLUID THROUGH IT .
--- NOTE | 2021-07-19 01:30 | NUR ---
RN NOTES: PRIMARY RN IS BACK FROM BREAK , RN FLUSHED IV ACCESS , NOTICED THAT BROWN AND BLUE COLORED PORTS ONE HAS GOOD BLOOD RETURN, BUT THE WHILE DOESN'T HAVE ANY BLOOD RETURN BUT ABLE TO FLUSH WELL .IV BOLUS STARTED TO THE BROWN PORT ,IV ANTIBIOTIC STARTED TO THE BLUE PORT .REQUESTED PRIMARY RN TO MONITOR PT . UNABLE TO SCAN BOTH THE NS BOLUS BAG , SO SCANNED ONE BAG AND WILL GIVE BOTH LITERS PER ORDER .
[2021-07-19] MEDS: D5LR 1,000 ML IV SCH ×3 (04:35→20:38)
--- NOTE | 2021-07-19 05:59 | NUR ---
CONSULTATION PAGED/CALLED Reason for Consultation: SEPSIS Person Who was Notified: RACHEL Consulting Physician: BLANQUITA Family Counselor Specialty: Ordering Physician: FRANCISCA
[2021-07-19] MEDS ORDERED: PIPERACILLIN/TAZO 4.5GM/DEX-IS 100 ML IV SCH (06:00)
[2021-07-19] MEDS: LANSOPRAZOLE 30 MG CAPSULE.DR GT SCH (07:03)
[2021-07-19] MEDS ORDERED: PEG 400/HYPROMELLOSE/GLYCERIN 15 ML DROPS OP PRN (07:05)
[2021-07-19 07:12] LABS: BASOPHILS # (AUTO) 0.1 K/uL (0.0-0.2); BASOPHILS % (AUTO) 0.4 % (0.0-2.0); EOSINOPHILS % (AUTO) 0.1 % (0.0-4.0); HEMATOCRIT 32.4 % (36-54); LYMPHOCYTES # (AUTO) 2.5 K/uL (1.0-5.5); LYMPHOCYTES % (AUTO) 12.6 % (20.5-51.5); MEAN CORPUSCULAR HEMOGLOBIN 27 pg (27-31); MEAN CORPUSCULAR HGB CONC 31 % (32-36); MEAN CORPUSCULAR VOLUME 88 fL (79.0-98.0); MONOCYTES # (AUTO) 1.4 K/uL (0.0-1.0); MONOCYTES % (AUTO) 7.2 % (1.7-9.3); NEUTROPHILS # (AUTO) 15.7 K/uL (1.8-7.7); NEUTROPHILS % (AUTO) 79.7 % (40.0-70.0); PLATELET COUNT (AUTO) 190 K/uL (130-430); RED BLOOD CELL COUNT(AUTO) 3.69 MIL/uL (4.2-6.2); RED CELL DISTRIBUTION WIDTH 22.2 % (9.0-15.0); WHITE BLOOD COUNT (AUTO) 19.7 K/uL (4.8-10.8)
[2021-07-19 08:00] VITALS: BP_SYST 118
[2021-07-19] MEDS ORDERED: OMEPRAZOLE Non-Formulary 20 MG CAPSULE.DR GT SCH (09:00)
[2021-07-19] MEDS ORDERED: MULTIVITAMINS,THERAPEUTIC 5 ML UDC GT SCH (09:00)
[2021-07-19] MEDS ORDERED: NON-FORMULARY MEDICATION (Amino Acids/Protein Hydrolys (Pro-Stat Liquid) 30 ML) GT SCH (09:00)
[2021-07-19] MEDS: CHLORHEXIDINE GLUCONATE 15 ML/DOSE, 480 ML MM SCH ×2 (09:27→20:37)
[2021-07-19] MEDS: PEG 400/HYPROMELLOSE/GLYCERIN 15 ML DROPS OP SCH ×2 (09:28→20:14)
[2021-07-19] MEDS: BISACODYL 10 MG/SUPPOSITORY RC SCH (09:28)
[2021-07-19] MEDS: CALCIUM CARBONATE/VITAMIN D3 1 TAB TABLET GT SCH ×2 (09:29→20:11)
[2021-07-19] MEDS: clonazePAM 0.5 MG TABLET GT SCH ×2 (09:29→20:11)
[2021-07-19] MEDS: MULTIVITAMINS TAB 1 TABLET GT SCH (09:29)
[2021-07-19] MEDS: ASCORBIC ACID 500 MG TABLET GT SCH (09:29)
[2021-07-19] MEDS: CHOLECALCIFEROL (VITAMIN D-3) 400 UNIT TABLET GT SCH (09:50)
[2021-07-19 10:51] LABS: ALBUMIN 2.4 g/dL (3.4-4.8); CALCIUM 8.8 mg/dL (8.4-11.0); CREATININE 0.41 mg/dL (0.55-1.30); PHOSPHORUS 2.4 mg/dL (2.7-4.5); POTASSIUM 3.9 mmol/L (3.5-5.1); TOTAL BILIRUBIN 0.3 mg/dL (0.0-1.0)
[2021-07-19] MEDS ORDERED: DIATR MEGLU/DIATRIZ SOD 30 ML SOLUTION PO ONE (11:43)
[2021-07-19 12:19] VITALS: BP_SYST 117
[2021-07-19] MEDS: VANCOMYCIN HCL 1,000 MG in NS 250 ML IV SCH (13:00)
[2021-07-19] MEDS: PIPERACILLIN/TAZO 4.5GM/DEX-IS 100 ML IV SCH ×2 (14:00→20:49)
[2021-07-19 16:39] VITALS: BP_SYST 116
--- NOTE | 2021-07-19 19:40 | NUR ---
INITIAL NOTE AT INITIAL ASSESSMENT, PATIENT IS RESTING IN BED, STABLE, NO SIGNS OF RESPIRATORY DISTRESS. PATIENT SHOWS NO PAIN PER FLACC SCALE. PLAN OF CARE FOR THE EVENING IS COMMUNICATED WITH THE PATIENT. PATIENT IS UNABLE TO DEMONSTRATE CORRECT USAGE OF CALL LIGHT AT THIS TIME DUE TO COGNITIVE IMPAIRMENT; FREQUENT ROUNDING WILL BE COMPLETED THROUGHOUT THE NIGHT TO MEET ALL PATIENT NEEDS. PATIENT WILL BE TURNED [id number] DURING THE SHIFT, MAKING SURE PRESSURE IS OFFLOADED FROM HIS WOUNDS AND OTHER PRESSURE AREAS. BED IS LOCKED, ALARMED, AND AT THE LOWEST LEVEL. FALL SAFETY EDUCATION PROVIDED. FALL, SAFETY, ASPIRATION, ISOLATION, AND RESPIRATORY PRECAUTIONS WILL BE TAKEN THROUGHOUT THE SHIFT.
[2021-07-19 20:10] VITALS: BP_SYST 111
[2021-07-19] MEDS: ACETAMINOPHEN 650 MG/20.3 ML UDC GT PRN (20:11)
--- NOTE | 2021-07-19 22:45 | NUR ---
HYGIENE CARE / ORAL CARE NOTE HYGIENE CARE AND ORAL CARE ARE PROVIDED AT THIS TIME, FRESH LINENS PROVIDED, AND PATIENT IS REPOSITIONED FOR COMFORT. PATIENT TOLERATED WELL. CALL LIGHT PLACED WITHIN REACH. BED IS LOCKED, ALARMED, AND AT THE LOWEST LEVEL
[2021-07-20] VITALS: BP_SYST 107
[2021-07-20] MEDS: VANCOMYCIN HCL 1,000 MG in NS 250 ML IV SCH ×2 (01:25→13:00)
[2021-07-20 04:23] LABS: BILIRUBIN,URINE NEGATIVE (NEGATIVE); BLOOD, URINE 1+ (NEGATIVE); CLARITY/URINE CLEAR (CLEAR); COLOR,URINE YELLOW (YELLOW); GLUCOSE,URINE NEGATIVE (NEGATIVE); KETONES,URINE NEGATIVE (NEGATIVE); LEUKOCYTE ESTERASE ,URINE 2+ (NEGATIVE); NITRITE, URINE NEGATIVE (NEGATIVE); PROTEIN URINE NEGATIVE (NEGATIVE); UROBILINOGEN,URINE 0.2 (0.2-1.0)
[2021-07-20 04:51] LABS: BACTERIA,URINE FEW /HPF (None Seen); WBC,URINE 50-80 /HPF (0-3)
[2021-07-20 04:53] LABS: MUCUS,URINE 1+ /LPF (None Seen)
[2021-07-20] MEDS: D5LR 1,000 ML IV SCH ×4 (05:02→22:37)
[2021-07-20] MEDS: PIPERACILLIN/TAZO 4.5GM/DEX-IS 100 ML IV SCH ×3 (05:02→22:34)
[2021-07-20] MEDS: LANSOPRAZOLE 30 MG CAPSULE.DR GT SCH (06:16)
--- NOTE | 2021-07-20 06:31 | NUR ---
CLOSING NOTE PATIENT SLEPT WELL THROUGHOUT THE SHIFT, NO SHORTNESS OF BREATH NOTED. AT THIS TIME, PATIENT IS RESTING IN BED, STABLE, NO SIGNS OF RESPIRATORY DISTRESS. CALL LIGHT IS WITHIN REACH. BED IS LOCKED, ALARMED, AND AT THE LOWEST LEVEL. ORAL CARE PROVIDED [id number], PATIENT TURNED [id number] DURING THE SHIFT. FALL, SAFETY, ASPIRATION, ISOLATION, AND RESPIRATORY PRECAUTIONS HAVE BEEN TAKEN THROUGHOUT THE SHIFT. WILL CONTINUE TO MONITOR UNTIL SHIFT REPORT IS GIVEN AT BEDSIDE TO AM NURSE.
[2021-07-20] MEDS: clonazePAM 0.5 MG TABLET GT SCH ×2 (09:33→09:54)
[2021-07-20] MEDS: CALCIUM CARBONATE/VITAMIN D3 1 TAB TABLET GT SCH ×2 (09:38→22:35)
[2021-07-20] MEDS: ASCORBIC ACID 500 MG TABLET GT SCH (09:45)
[2021-07-20] MEDS: PEG 400/HYPROMELLOSE/GLYCERIN 15 ML DROPS OP SCH ×2 (09:47→21:00)
[2021-07-20] MEDS: BISACODYL 10 MG/SUPPOSITORY RC SCH ×2 (09:47→09:53)
[2021-07-20] MEDS: CHLORHEXIDINE GLUCONATE 15 ML/DOSE, 480 ML MM SCH ×2 (09:47→22:36)
[2021-07-20] MEDS: CHOLECALCIFEROL (VITAMIN D-3) 400 UNIT TABLET GT SCH (09:48)
[2021-07-20] MEDS: MULTIVITAMINS TAB 1 TABLET GT SCH (09:48)
[2021-07-20 11:25] LABS: BASOPHILS % (AUTO) 0.4 % (0.0-2.0); EOSINOPHILS # (AUTO) 0.1 K/uL (0.0-0.4); EOSINOPHILS % (AUTO) 1.6 % (0.0-4.0); HEMATOCRIT 31.9 % (36-54); HEMOGLOBIN 10.1 g/dL (14.0-18.0); LYMPHOCYTES % (AUTO) 24.2 % (20.5-51.5); MEAN CORPUSCULAR HEMOGLOBIN 28 pg (27-31); MEAN CORPUSCULAR HGB CONC 32 % (32-36); MEAN CORPUSCULAR VOLUME 88 fL (79.0-98.0); MONOCYTES # (AUTO) 0.6 K/uL (0.0-1.0); MONOCYTES % (AUTO) 7.9 % (1.7-9.3); NEUTROPHILS # (AUTO) 5.4 K/uL (1.8-7.7); NEUTROPHILS % (AUTO) 65.9 % (40.0-70.0); PLATELET COUNT (AUTO) 151 K/uL (130-430); RED BLOOD CELL COUNT(AUTO) 3.64 MIL/uL (4.2-6.2); RED CELL DISTRIBUTION WIDTH 22.1 % (9.0-15.0); WHITE BLOOD COUNT (AUTO) 8.2 K/uL (4.8-10.8)
[2021-07-20 11:45] LABS: CALCIUM 8.2 mg/dL (8.4-11.0); CREATININE 0.41 mg/dL (0.55-1.30); POTASSIUM 3.7 mmol/L (3.5-5.1)
[2021-07-20 12:00] VITALS: BP_SYST 109
--- NOTE | 2021-07-20 15:32 | NUR ---
WOUND EVALUATION: Wound Consult received from Dr. Bacon. Thank you, Dr. Bacon, for the consult. Patient received in a Hampton Bed with an IsoFlex NOEMY mattress, awake, nonverbal, nonresponsive to verbal commands. Patient is unable to turn in bed independently. Lalo Score is a 11. Past Medical History: Cerebral Palsy, intellectual impairment, Chronic Respiratory Failure, ventilator dependent, Dysphagia with G-tube feeding, Seizure disorder, Spastic quadriplegia, Tracheostomy, Chronic Encephalopathy, Severe Protein Malnutrition, Anemia (Microcytic, Iron Deficiency, and of Chronic Illness), recurrent sepsis, recurrent urinary tract infection, ventilator associated pneumonia with pleural effusion, Acute on Chronic Encephalopathy. Recent Labs: WBC 8.2, RBC 3.64, hemoglobin 10.1, hematocrit 31.9, chloride 110, BUN 12, creatinine 0.41, GFR 244, glucose 125, calcium 8.2, albumin 2.4. Microbiology: Blood culture results x2 in progress. MRSA screen results negative. Tracheal sputum culture results in progress. Urine culture results in progress. Intrinsic factors that delay wound healing: Cerebral Palsy, Chronic Respiratory Failure, ventilator dependent, G-tube feeding, Quadriplegia, Chronic Encephalopathy, Severe Protein Malnutrition, Anemia (Microcytic, Iron Deficiency, and of Chronic Illness), Hypoalbuminemia. Extrinsic factors that delay wound healing: Immobility. Wound Assessment: 1. Left Buttock near Ischium: Stage IV pressure ulcer, present on admission. Wound bed has 60% pink tissue, 30% yellow slough, 10% black tissue. Mild odor, scant sanguineous drainage. Bone is palpable. Surrounding tissue has scar tissue. Undermining present around from 10-6 o'clock (1.7 cm at 12 o'clock; 1.6 cm at 3 o'clock; 0.6 cm at 6 o'clock). Wound measures 6.2 cm x 5.0 cm x 1.5 cm. 2. Right Buttock near Ischium: Stage IV pressure ulcer, present on admission. Wound bed has 40% pink tissue, 40% yellow slough, 20% black tissue. Mild odor, scant sanguineous drainage. Bone is palpable. Surrounding tissue has scar tissue. 100% undermining present around periwound (1.0 cm at 12 o'clock; 0.8 cm at 3 o'clock; 0.6 cm at 6 o'clock; 1.3 cm at 9 o'clock). Wound measures 5.7 cm x 4.0 cm x 2.5 cm. 3. Left Sacral area: Stage III pressure ulcer, present on admission. Wound bed has 90% yellow tissue, 10% red tissue. No odor, no drainage. Periwound intact, white. Surrounding tissue has scar tissue. Wound measures 1.4 cm x 1.4 cm. 4. Right Sacral area: Stage II pressure ulcer, present on admission. Wound bed has 100% red tissue. No odor, no drainage. Periwound intact. Surrounding tissue has scar tissue. Site measures 1.8 cm x 0.8 cm. Recommend: Cleanse wounds with normal saline. Apply moisture barrier cream to sari-wounds. Apply Venelex ointment to wound beds. Pack tunneled areas of wounds then areas of depth with 1/2 inch iodoform packing strip. Cover with non-adhesive 4 x 4 foam dressing. Secure with transparent dressings. Perform wound care daily, and as needed for dressing soiling or dislodgment. 5. Right Sacral area, Medial to Site 4: Area of brown discoloration underneath wrinkly skin, present on admission. No odor, no drainage. Site measures 0.7 cm x 0.5 cm. Recommend: Cover site with same foam dressing as used for Sites 1-4. Change dressing and assess site daily, and as needed for dressing soiling or dislodgment. 6. Left Anterior Medial Knee: Unstageable pressure ulcer, present on admission. Wound bed has 90% yellow slough, 5% pink tissue, 5% dark red tissue. No odor, scant yellow drainage. Periwound intact. Wound measures 2.0 cm x 2.7 cm. 7. Left Knee, Lateral to Site 6: Scar tissue, present on admission. 8. Left Knee, Inferior to Site 7: Scar tissue, present on admission. Recommend: Cleanse involved areas with normal saline. Apply moisture barrier cream to involved area. Perform site care daily, and as needed for soiling. 9. Right Medial Knee: Chronic wound of unknown etiology, present on admission. Wound bed has 95% yellow eschar, 5% brown eschar. No odor, no drainage. Periwound intact. Wound measures 1.5 cm x 0.4 cm. Recommend: Cover with 4 x 4 foam dressing. Perform site care daily, and as needed for dressing soiling or dislodgment. 10. Left Distal Posterior Calf/Achilles area: Scar tissue from a pressure ulcer of prior unknown stage with brown, dry, scaly skin, present on admission. 11. Right Distal Posterior Calf/Achilles area: Scar tissue from a pressure ulcer of prior unknown stage with brown, dry, scaly skin, present on admission. Recommend: Cleanse involved areas with mild soap and water. Pat dry. Apply lotion to dry scaly skin areas. Perform site care twice daily. Offload involved areas at all times with pillows. 12. Left Heel: Blanchable redness, present on admission. 13. Left Heel: Blanchable redness, present on admission. Recommend: Cover sites with foam dressings for protection. Elevate, offload and float bilateral heels with 1 pillow lengthwise under each extremity at all times. Do not allow heels to touch bed or other surfaces at any time. Also recommend: Reposition patient side to side only every 2 hours with one pillow underneath trunk and 1 pillow underneath pelvis. Off-load pressure areas with pillows for pressure re-distribution. Offload, elevate and float bilateral heels with one pillow lengthwise under each extremity at all times. Keep a pillow in between knees and ankles at all times. Perform skin care and monitor skin integrity Q shift. Use moisture barrier cream on buttocks and other moisture susceptible areas QID and as needed for soiling. Place patient on a P500 low air-loss mattress. Addendum: 07/20/21 at 1608 by Milton Duenas RN Error: B right heel Addendum: 07/20/21 at 1609 by Milton Duenas RN Error. Site 13 should be Right Heel.
[2021-07-20 16:43] VITALS: BP_SYST 108
--- NOTE | 2021-07-20 16:45 | NUR ---
Dietitian Recommendations * Continue Glucerna 1.5 at 60 ml/hr, Manav BID, Prosource TID via GT * Free Water Flush: 200 ml Q6h via GT TF w/ water flush provides: 2500 kcal/day, 169 gm protein/day, and 2293 ml free water/day TF w/ water flush meets: 93% of upper end of estimated caloric needs, 110% of upper end of estimated protein needs, and 99% of lower end of estimated fluid needs YARELI, RD Please refer to Nutrition Assessment for details. Addendum: 07/20/21 at [address] Amended: Links added.
--- NOTE | 2021-07-20 19:10 | NUR ---
OPENING NOTES PATIENT RESTING, NO SIGNS OF DISTRESS NOTED. CALL LIGHT WITHIN REACH, BED ALARM ON, BED AT LOWEST POSITION, BED LOCKED. PATIENT UNABLE TO DEMONSTRATE BACK CALL LIGHT USAGE. FALL, RESPIRATORY, ASPIRATION, AND SAFETY PRECAUTIONS IN PLACE THROUGHOUT SHIFT. DAMON CATHETER IN PLACE, NO KINKS, NO LOOPS, BAG NOT TOUCHING THE FLOOR. WILL CONTINUE TO MONITOR.
[2021-07-20 20:00] VITALS: BP_SYST 142
[2021-07-21 00:30] VITALS: BP_SYST 131
[2021-07-21] MEDS: VANCOMYCIN HCL 1,000 MG in NS 250 ML IV SCH ×2 (01:37→13:03)
[2021-07-21] MEDS: D5LR 1,000 ML IV SCH ×3 (04:05→17:25)
[2021-07-21] MEDS: PIPERACILLIN/TAZO 4.5GM/DEX-IS 100 ML IV SCH ×3 (06:33→21:03)
[2021-07-21] MEDS: LANSOPRAZOLE 30 MG CAPSULE.DR GT SCH (06:33)
--- NOTE | 2021-07-21 07:10 | NUR ---
CLOSING NOTES PATIENT RESTING, NO SIGNS OF DISTRESS NOTED. CALL LIGHT WITHIN REACH, BED ALARM ON, BED AT LOWEST POSITION, BED LOCKED. FALL, RESPIRATORY, ASPIRATION, AND SAFETY PRECAUTIONS IN PLACE THROUGHOUT SHIFT. DAMON CATHETER IN PLACE, NO KINKS, NO LOOPS, BAG NOT TOUCHING THE FLOOR. ALL NEEDS MET THROUGHOUT SHIFT. ALL NEEDS MET THROUGHOUT SHIFT. WILL ENDORSE CARE TO ONCOMING SHIFT.
[2021-07-21] MEDS: MULTIVITAMINS TAB 1 TABLET GT SCH (08:28)
[2021-07-21] MEDS: CALCIUM CARBONATE/VITAMIN D3 1 TAB TABLET GT SCH ×2 (08:28→20:47)
[2021-07-21] MEDS: ASCORBIC ACID 500 MG TABLET GT SCH (08:29)
[2021-07-21] MEDS: PEG 400/HYPROMELLOSE/GLYCERIN 15 ML DROPS OP SCH ×2 (08:30→20:49)
[2021-07-21 08:31] LABS: CALCIUM 8.3 mg/dL (8.4-11.0); CREATININE 0.38 mg/dL (0.55-1.30); POTASSIUM 3.8 mmol/L (3.5-5.1)
[2021-07-21] MEDS: clonazePAM 0.5 MG TABLET GT SCH ×2 (08:34→20:47)
[2021-07-21] MEDS: CHLORHEXIDINE GLUCONATE 15 ML/DOSE, 480 ML MM SCH ×2 (08:36→20:49)
[2021-07-21 08:58] LABS: BASOPHILS % (AUTO) 0.5 % (0.0-2.0); EOSINOPHILS # (AUTO) 0.1 K/uL (0.0-0.4); EOSINOPHILS % (AUTO) 1.1 % (0.0-4.0); HEMATOCRIT 32.9 % (36-54); HEMOGLOBIN 10.4 g/dL (14.0-18.0); LYMPHOCYTES # (AUTO) 1.8 K/uL (1.0-5.5); LYMPHOCYTES % (AUTO) 28.3 % (20.5-51.5); MEAN CORPUSCULAR HEMOGLOBIN 28 pg (27-31); MEAN CORPUSCULAR HGB CONC 32 % (32-36); MEAN CORPUSCULAR VOLUME 87 fL (79.0-98.0); MONOCYTES # (AUTO) 0.3 K/uL (0.0-1.0); NEUTROPHILS # (AUTO) 4.2 K/uL (1.8-7.7); NEUTROPHILS % (AUTO) 65.1 % (40.0-70.0); PLATELET COUNT (AUTO) 140 K/uL (130-430); RED BLOOD CELL COUNT(AUTO) 3.77 MIL/uL (4.2-6.2); WHITE BLOOD COUNT (AUTO) 6.5 K/uL (4.8-10.8)
[2021-07-21] MEDS ORDERED: CHOLECALCIFEROL (VITAMIN D3) 5,000 UNIT TABLET PO SCH (09:00)
[2021-07-21] MEDS: BALSAM PERU/CASTOR OIL 56.7 GM OINT...G. TP SCH (09:04)
[2021-07-21] MEDS: CHOLECALCIFEROL (VITAMIN D3) 5,000 UNIT TABLET GT SCH (09:05)
[2021-07-21] MEDS ORDERED: ALTEPLASE 2 MG VIAL MC ONE (13:15)
--- NOTE | 2021-07-21 15:20 | NUR ---
ASSUME CARE: ASSUME CARE FROM CATA CONNOLLY. PATIENT RESTING IN BED. BREATHING EVEN AND NON LABORED. [facility] VENT/TRACH OPERATING WELL. IV AND G TUBE INFUSING WELL. DAMON CATHETER IN PLACED AND DRAINING BY GRAVITY. MOTHER AT BEDSIDE. FALL, SAFETY AND ASPIRATION MEASURES REINFORCED. CALL LIGHT WITHIN REACH. WILL CONTINUE MONITOR UNTIL ENDORSE TO LINE DEPARTMENT SUPERVISOR RN. Addendum: 07/21/21 at 1739 by Jatinder Vega RN WRONG ENTRY:
[2021-07-21 16:58] VITALS: BP_SYST 135
--- NOTE | 2021-07-21 17:18 | NUR ---
0800: PATIENT IS CHRONIC TRACH. TO VENT., OPEN EYES TO PAINFUL STIMULI BUT DOES NOT ATTEMPTED TO COMMUNICATE, UNABLE TO VERBALIZE NEEDS, ALL NEEDS ASSESS Q HOURLY AND PRN. CENTRAL LINE LEFT SUBCLAVIAN WITH DRESSING INTACT W/O ANY SWELLING OR DISCHARGE FROM SITE NOTED. ALL PORT HARD TO FLUSH W/O ANY BLOOD RETURN WITH IV RUNNING. WILL NOTIFY MD OF FINDING. GENERALIZE WEAKNESS ALL EXTREMITIES WITH CONTRACTURE BOTH UPPER AND LOWER EXTREMITIES. MULTIPLE SKIN PROBLEM, TREATMENT INITIATED PER WOUND CARE NURSE WITH DRESSING IN PLACE. G-TUBE WITH [id number] FEEDING W/O ANY RESIDUAL NOTED. 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 WILL CONTINUE TO REASSESS PATIENT PRN. 1715: NEW ORDER FOR CATHFLOW WAS OBTAIN BUT MED NOT GIVEN TO POLICY UNABLE TO ADMINISTER IN MED/SURG TELE SETTING VERIFIED BY CHARGE NURSE CATA CHURCH AND QUALITY PROCESS ENGINEER EVRITO. NO ADVERSE REACTION FROM IV ANTIBIOTIC NOTED. DISCUSSED CODE STATUS WITH PATIENT'S MOTHER AND SISTER. EVERYTHING SUPPOSE TO DONE EXCEPT COMPRESSION. ENDORSED PATIENT TO CATA BROWN
--- NOTE | 2021-07-21 17:20 | NUR ---
ASSUME CARE: ASSUME CARE FROM CATA CONNOLLY. PATIENT RESTING IN BED. BREATHING EVEN AND NON LABORED. MECH VENT/TRACH OPERATING WELL. IV AND G TUBE INFUSING WELL. DAMON CATHETER IN PLACED AND DRAINING BY GRAVITY. MOTHER AT BEDSIDE. FALL, SAFETY AND ASPIRATION MEASURES REINFORCED. CALL LIGHT WITHIN REACH. WILL CONTINUE MONITOR UNTIL ENDORSE TO MAINTENANCE TEAM LEADER RN.
--- NOTE | 2021-07-21 18:30 | NUR ---
CLOSING NOTES NOTES: PATIENT RESTING IN BED. NO S/S OF ACUTE DISTRESS NOTED. MECH VENT/ TO TRACH IN PLACED. IV AND G TUBE IN PLACED AND INFUSING WELL. MOTHER AT BEDSIDE. FALL AND SAFETY MEASURES RENDERED. CALL LIGHT WITHIN REACH. WILL CONTINUE MONITOR UNTIL ENDORSE TO STANDARD MACHINE STITCHER RN.
--- NOTE | 2021-07-21 19:30 | NUR ---
PM ASSESSMENT; -Pt is nonverbal, arousable upon deep stimulus. No s/s any pain,sob,or any acute distress noted. Pt has a trachea with Vent machine setting (ac=14, fio2=40%, resp=5, UU=724),i6dya=847%. Pt has TLC on left chest wall drsg cdi. G-tube feeding w/ Glucerna 1.5 @ 60ml/hr, checked residual=85,continuing GT feeding. IV site rt a/c #20 patent after flushed w/ ns, no s/s any infiltration noted. Redness & swollen around rt upper extremity elevated with pillow & ice applied. Suctioned pt via trachea and mouth, thick white mucus noted. Turned & repositioned and q 2 hrs prn. All safety measures in place. Side rails x3. Keep HOB >30 degree entire time. No family is at bedside. Cont to monitor pt. Addendum: 07/22/21 at 0326 by Eighteen crimping press operator CORRECTION- CHARTING WRONG PATIENT REGARDING IV SITE AND RT UPPER EXTREM REDNESS AND SWOLLEN
[2021-07-21 20:00] VITALS: BP_SYST 154
--- NOTE | 2021-07-22 00:15 | NUR ---
ROUNDS; -Pt is resting in bed. No s/s any pain,sob,or any acute distress noted. Vent setting same,a1pfz=443%. Turned & repositioned and q 2 hrs prn. All safety measures in place. Side rails x3. Keep HOB >30 degree entire time. Cont to monitor pt.
[2021-07-22 00:44] VITALS: BP_SYST 149
[2021-07-22] MEDS: D5LR 1,000 ML IV SCH ×3 (00:52→17:03)
--- NOTE | 2021-07-22 02:05 | NUR ---
ROUNDS; -Pt is resting in bed. No s/s any pain,sob,or any acute distress noted. Vent setting same,x0ebq=536%. Turned & repositioned and q 2 hrs prn. pt's condition remains stable. All safety measures in place. Side rails x3. Keep HOB >30 degree entire time. Cont to monitor pt.
--- NOTE | 2021-07-22 04:15 | NUR ---
ROUNDS; Residual of GT checked, less than 15ml residual, flushed w/ 200 free water per md. -Pt is asleep. No s/s any pain,sob,or any acute distress noted. Suctioned pt from oral and trachea with thick clear mucus noted. Vent setting same,c6ofr=693%. Turned & repositioned and q 2 hrs prn. pt's condition remains stable. All safety measures in place. Side rails x3. Keep HOB >30 degree entire time. Cont to monitor pt.
[2021-07-22] MEDS: PIPERACILLIN/TAZO 4.5GM/DEX-IS 100 ML IV SCH ×3 (06:35→21:03)
[2021-07-22] MEDS: LANSOPRAZOLE 30 MG CAPSULE.DR GT SCH (06:35)
--- NOTE | 2021-07-22 06:59 | NUR ---
CLOSING NOTES; -Pt is asleep. No s/s any pain,sob,or any acute distress noted. Multiple times suctioned pt from oral and trachea with thick clear mucus noted. Vent setting same,y4mmw=750% with same setting entire shift. TLC left chest wall. G-tube feeding @ 60ml/hr, residual less than 90ml entire shift. Escobar cath w/ gravity drains yellow urine output. pt's condition remains stable. All safety measures in place. Side rails x3. Keep HOB >30 degree entire time. Will endorse to next nurse to cont care.
--- NOTE | 2021-07-22 07:24 | NUR ---
OPENING NOTE: REPORT RCVD FROM OUT GOING NOC RN, ALL CARES ASSUMED.
[2021-07-22 07:26] LABS: CALCIUM 9.3 mg/dL (8.4-11.0); CREATININE 0.38 mg/dL (0.55-1.30); POTASSIUM 3.9 mmol/L (3.5-5.1)
[2021-07-22 07:49] LABS: BASOPHILS % (AUTO) 0.4 % (0.0-2.0); EOSINOPHILS # (AUTO) 0.1 K/uL (0.0-0.4); EOSINOPHILS % (AUTO) 1.6 % (0.0-4.0); HEMATOCRIT 34.2 % (36-54); LYMPHOCYTES # (AUTO) 1.4 K/uL (1.0-5.5); LYMPHOCYTES % (AUTO) 23.5 % (20.5-51.5); MEAN CORPUSCULAR HEMOGLOBIN 28 pg (27-31); MEAN CORPUSCULAR HGB CONC 32 % (32-36); MEAN CORPUSCULAR VOLUME 87 fL (79.0-98.0); MONOCYTES # (AUTO) 0.3 K/uL (0.0-1.0); MONOCYTES % (AUTO) 4.8 % (1.7-9.3); NEUTROPHILS # (AUTO) 4.2 K/uL (1.8-7.7); NEUTROPHILS % (AUTO) 69.7 % (40.0-70.0); PLATELET COUNT (AUTO) 152 K/uL (130-430); RED BLOOD CELL COUNT(AUTO) 3.95 MIL/uL (4.2-6.2); RED CELL DISTRIBUTION WIDTH 20.7 % (9.0-15.0)
[2021-07-22 08:00] VITALS: BP_SYST 138
[2021-07-22] MEDS: MULTIVITAMINS TAB 1 TABLET GT SCH (08:40)
[2021-07-22] MEDS: ASCORBIC ACID 500 MG TABLET GT SCH (08:40)
[2021-07-22] MEDS: BISACODYL 10 MG/SUPPOSITORY RC SCH (08:40)
[2021-07-22] MEDS: CHOLECALCIFEROL (VITAMIN D3) 5,000 UNIT TABLET GT SCH (08:41)
[2021-07-22] MEDS: CALCIUM CARBONATE/VITAMIN D3 1 TAB TABLET GT SCH ×2 (08:41→21:04)
[2021-07-22] MEDS: CHLORHEXIDINE GLUCONATE 15 ML/DOSE, 480 ML MM SCH ×2 (08:41→21:05)
[2021-07-22] MEDS: clonazePAM 0.5 MG TABLET GT SCH ×2 (08:41→21:04)
[2021-07-22] MEDS: BALSAM PERU/CASTOR OIL 56.7 GM OINT...G. TP SCH (08:42)
[2021-07-22] MEDS: PEG 400/HYPROMELLOSE/GLYCERIN 15 ML DROPS OP SCH ×2 (08:42→21:05)
--- NOTE | 2021-07-22 10:41 | NUR ---
DR. ESPINOSA MAKING ROUNDS, BEDSIDE VERBAL REPORT GIVEN, NO NEW ORDERS AT THIS TIME.
--- NOTE | 2021-07-22 12:00 | NUR ---
WOUND CARE COMPLETED PER ORDER, PT TOLERATED WELL.
[2021-07-22 12:43] VITALS: BP_SYST 158
--- NOTE | 2021-07-22 14:00 | NUR ---
MOTHER AT BEDSIDE, ALL QUESTIONS ANSWERED WITH LLAMA FARMER.
--- NOTE | 2021-07-22 16:00 | NUR ---
REPOSITIONED WILL PILLOW SUPPORT, HEELS FLOATING, TUBE FEEDING RUNNING TOLERATING WELL. BED LOW AND LOCKED FOR SAFETY. IV INFUSING TO LEFT UPPER SUBCLAVIAN.
[2021-07-22 16:26] VITALS: BP_SYST 151
--- NOTE | 2021-07-22 16:47 | NUR ---
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 Left Buttock near Ischium: Stage IV pressure ulcer, present on admission. 2. Right Buttock near Ischium: Stage IV pressure ulcer, present on admission. 3. Left Sacral area: Stage III pressure ulcer, present on admission. 4. Right Sacral area: Stage II pressure ulcer, present on admission. 5. Right Sacral area, Medial to Site 4: Area of brown discoloration underneath wrinkly skin, present on admission. 6. Left Anterior Medial Knee: Unstageable pressure ulcer, present on admission. 7. Left Knee, Lateral to Site 6: Scar tissue, present on admission. 8. Left Knee, Inferior to Site 7: Scar tissue, present on admission. 9. Right Medial Knee: Chronic wound of unknown etiology, present on admission. 10. Left Distal Posterior Calf/Achilles area: Scar tissue from a pressure ulcer of prior unknown stage with brown, dry, scaly skin, present on admission. 11. Right Distal Posterior Calf/Achilles area:Scar tissue from a pressure ulcer of prior unknown stage with brown, dry, scaly skin, present on admission. 12. Left Heel: Blanchable redness, present on admission. 13. Left Heel: Blanchable redness, present on admission. Current TF prescription is adequate/appropriate. Current Diet Order/Nutrition Support: Glucerna 1.5 at 60 ml/hr, Manav BID, Prosource TID, Free Water Flush: 200 ml Q6H via GT x2 days Patient/Significant Other Unable To Verbalize Education Provided Not Indicated Pertinent Medications: MVI, zinc, VIT C, VIT D3, os-marguerite, senna Pertinent Labs: Cl 107 WNL, CRE 0.38 L, BG 149 H, WBC 6 WNL, Lactic acid 1.4 WNL Height (Feet) 5 feet Height (Inches) 5.00 inches Weight (Pounds) 169 pounds -- stable since 07/20 Patient Weight 76.657 kg Body Mass Index 28.12 kg/m2 %IBW 124 [place]/Adjusted Body Weight 136#/61.8 kg Recent Weight Change Unable to verify Weight Status Overweight Last BM Jul 20, 2021 Food Allergies Unable to verify Estimated Energy Expenditure (kcals/day) 2985-2206 (30-35 kcal/kg CBW d/t sepsis, wound healing) Estimated Protein Required (g/day) 115-154 (1.5-2 gm/kg CBW d/t sepsis, wound healing) Estimated Fluid Required (l/day) 2.3-2.7 (1 ml/kcal/day for maintenance) Problem/Etiology/Signs/Symptoms Increased nutritional needs R/T metabolic demands AEB estimated nutritional requirements for sepsis and wound healing. *Ongoing Expected Outcomes/Goals - Monitor tolerance to EN support w/ goal of pt meeting >80% of estimated nutritional needs, labs trending WNL, normal GI function, and skin integrity/wt maintenance Dietitian Recommendations * Continue Glucerna 1.5 at 60 ml/hr, Manav BID, Prosource TID, Free Water Flush: 200 ml Q6h via GT Provides: 2500 kcal/day, 169 gm protein/day, and 2293 ml free water/day Meets: 93% of upper end of estimated caloric needs, 110% of upper end of estimated protein needs, and 99% of lower end of estimated fluid needs Follow Up Moderate Risk: F/U in 3-5 days
--- NOTE | 2021-07-22 16:55 | NUR ---
Dietitian Recommendations * Continue Glucerna 1.5 at 60 ml/hr, Manav BID, Prosource TID, Free Water Flush: 200 ml Q6h via GT Provides: 2500 kcal/day, 169 gm protein/day, and 2293 ml free water/day Meets: 93% of upper end of estimated caloric needs, 110% of upper end of estimated protein needs, and 99% of lower end of estimated fluid needs LP, RD Please refer to Nutrition F/U for details.
[2021-07-22] MEDS: ACETAMINOPHEN 650 MG/20.3 ML UDC GT PRN (17:21)
--- NOTE | 2021-07-22 17:21 | NUR ---
TYLENOL PRN FOR FACIAL GRIMACING AND TENSING OF BUE, REPOSITIONED WITH PILLOW SUPPORT. MOTHER REMAINS AT BEDSIDE.
[2021-07-22 19:30] VITALS: BP_SYST 145
--- NOTE | 2021-07-22 19:30 | NUR ---
PM ASSESSMENT; -Pt is nonverbal, arousable upon deep stimulus. No s/s any pain,sob,or any acute distress noted. Pt has a trachea with Vent machine setting (ac=14, fio2=40%, resp=5, YC=312),j8ybj=835%. Pt has TLC on left chest wall drsg cdi. G-tube feeding w/ Glucerna 1.5 @ 60ml/hr, checked residual=35,continuing GT feeding. IV site rt a/c #20 patent after flushed w/ ns, no s/s any infiltration noted. Redness & swollen around rt upper extremity elevated with pillow & ice applied. Suctioned pt via trachea and mouth, thick white mucus noted. Turned & repositioned and q 2 hrs prn. All safety measures in place. Side rails x3. Keep HOB >30 degree entire time. No family is at bedside. Cont to monitor pt.
--- NOTE | 2021-07-22 21:03 | NUR ---
ROUNDS; RESIDUAL=35ML OF G-TUBE, FLUSHED 200ML FREE WATER -Checked residual=35ml of GT feeding. Gave routine meds via GT,continuing same rate. Keep HOB> 30 degree entire time. No s/s any pain,sob,or any acute distress noted. Vent setting same,b6ics=005%. Oral care provided and suctioned oral and via trachea, thick white mucus noted. Turned & repositioned and q 2 hrs prn. All safety measures in place. Side rails x3. Cont to monitor pt.
[2021-07-23 00:16] VITALS: BP_SYST 136
--- NOTE | 2021-07-23 00:22 | NUR ---
ROUNDS; -Pt is resting in bed. No s/s any pain,sob,or any acute distress noted. Vent setting same,m8cnd=211%. Oral care provided and suctioned oral and via trachea, thick white mucus noted. pt's condition stable. IVF infusing well. Escobar cath w/ gravity drains yellow urine w/ gravity in place. Turned & repositioned and q 2 hrs prn. All safety measures in place. Side rails x3. Cont to monitor pt.
--- NOTE | 2021-07-23 03:00 | NUR ---
ROUNDS; RESIDUAL=15ML OF G-TUBE, FLUSHED 200ML FREE WATER -Checked residual=15ml of GT feeding, continue GT feeding same rate. Keep HOB> 30 degree entire time. No s/s any pain,sob,or any acute distress noted. Vent setting same,z4mlu=356%. Oral care provided and suctioned oral and via trachea, thick white mucus noted. All safety measures in place. Side rails x3. Cont to monitor pt.
[2021-07-23] MEDS: D5LR 1,000 ML IV SCH ×5 (06:50→22:24)
[2021-07-23] MEDS: LANSOPRAZOLE 30 MG CAPSULE.DR GT SCH (06:50)
[2021-07-23] MEDS: PIPERACILLIN/TAZO 4.5GM/DEX-IS 100 ML IV SCH ×3 (06:50→21:07)
--- NOTE | 2021-07-23 07:04 | NUR ---
CLOSING NOTES; -Pt is asleep. No s/s any pain,sob,or any acute distress noted. Multiple times suctioned pt from oral and trachea with thick clear mucus noted. Vent setting same,i8vaj=608% with same setting entire shift. TLC left chest wall. G-tube feeding @ 60ml/hr, residual less than 35ml entire shift. Escobar cath w/ gravity drains yellow urine output. pt's condition remains stable. All safety measures in place. Side rails x3. Keep HOB >30 degree entire time. Will endorse to next nurse to cont care.
[2021-07-23 08:00] VITALS: BP_SYST 143
[2021-07-23] MEDS: BISACODYL 10 MG/SUPPOSITORY RC SCH (09:00)
[2021-07-23] MEDS: ASCORBIC ACID 500 MG TABLET GT SCH (09:41)
[2021-07-23] MEDS: MULTIVITAMINS TAB 1 TABLET GT SCH (09:41)
[2021-07-23] MEDS: CALCIUM CARBONATE/VITAMIN D3 1 TAB TABLET GT SCH ×2 (09:41→21:09)
[2021-07-23] MEDS: clonazePAM 0.5 MG TABLET GT SCH ×2 (09:41→21:13)
[2021-07-23] MEDS: CHOLECALCIFEROL (VITAMIN D3) 5,000 UNIT TABLET GT SCH (09:41)
[2021-07-23] MEDS: BALSAM PERU/CASTOR OIL 56.7 GM OINT...G. TP SCH (09:43)
[2021-07-23] MEDS: CHLORHEXIDINE GLUCONATE 15 ML/DOSE, 480 ML MM SCH ×2 (09:44→21:07)
[2021-07-23] MEDS: PEG 400/HYPROMELLOSE/GLYCERIN 15 ML DROPS OP SCH ×2 (09:44→21:09)
[2021-07-23 12:30] VITALS: BP_SYST 153
[2021-07-23] MEDS: ACETAMINOPHEN 650 MG/20.3 ML UDC GT PRN (12:37)
[2021-07-23] MEDS ORDERED: traMADol HCL HCL 50 MG TABLET (ULTRAM) PO ONE (13:45)
[2021-07-23] MEDS ORDERED: NALOXONE HCL 0.4 MG/ML AMP (NARCAN) IVP PRN (13:45)
[2021-07-23] MEDS ORDERED: MORPHINE 2 MG/ML INJ. SYRINGE IVP PRN (13:45)
[2021-07-23 16:30] VITALS: BP_SYST 115
[2021-07-23] MEDS: traMADol HCL HCL 50 MG TABLET (ULTRAM) PO SCH (17:22)
--- NOTE | 2021-07-23 18:49 | NUR ---
0800 am assessment- pt stable res even and unlabored. continue on vent with same setting . trish in res distress. tube feeding contnue glucerna 1.5 .60 ml /hr. pt tolerating well. rodriguez cath intact, draining yellow color urine, left chest subclavian central line patent.with blood return. ivf infusing well. hob elevated. repositioned with pillow. suction done as needed. no s/s of pain or distress noted.will continue to monitor 1200- pt stable not in acute distress. 1430- family at bed side. wound care done as ordered. pt repositioned with pillow. 1700- ptstable notin acute distress. mother st bed side..
--- NOTE | 2021-07-23 18:58 | NUR ---
closing notes pt stable res even and unlabored. continue on vent with same setting . not in res distress. tube feeding continue glucerna 1.5 .60 ml /hr. pt tolerating well. rodriguez cath intact, draining yellow color urine, left chest subclavian central line patent.with blood return. ivf infusing well. hob elevated. repositioned with pillow. suction done as needed. no s/s of pain or distress noted . needs attended.
[2021-07-23 21:11] VITALS: BP_SYST 108
[2021-07-24] VITALS (9 sets, daily range): BP systolic 105–135
[2021-07-24] MEDS: traMADol HCL HCL 50 MG TABLET (ULTRAM) PO SCH ×4 (00:47→17:13)
[2021-07-24] MEDS: D5LR 1,000 ML IV SCH ×3 (05:13→21:25)
[2021-07-24] MEDS: PIPERACILLIN/TAZO 4.5GM/DEX-IS 100 ML IV SCH (05:14)
[2021-07-24] MEDS: LANSOPRAZOLE 30 MG CAPSULE.DR GT SCH (07:12)
[2021-07-24] MEDS: clonazePAM 0.5 MG TABLET GT SCH ×2 (08:21→21:23)
[2021-07-24] MEDS: MULTIVITAMINS TAB 1 TABLET GT SCH (08:21)
[2021-07-24] MEDS: ASCORBIC ACID 500 MG TABLET GT SCH (08:21)
[2021-07-24] MEDS: ACETAMINOPHEN 650 MG/20.3 ML UDC GT PRN (08:21)
[2021-07-24] MEDS: BISACODYL 10 MG/SUPPOSITORY RC SCH (08:22)
[2021-07-24] MEDS: CALCIUM CARBONATE/VITAMIN D3 1 TAB TABLET GT SCH ×2 (08:22→21:23)
[2021-07-24] MEDS: BALSAM PERU/CASTOR OIL 56.7 GM OINT...G. TP SCH (08:23)
[2021-07-24] MEDS: CHOLECALCIFEROL (VITAMIN D3) 5,000 UNIT TABLET GT SCH (08:23)
[2021-07-24] MEDS: CHLORHEXIDINE GLUCONATE 15 ML/DOSE, 480 ML MM SCH ×2 (08:23→21:24)
[2021-07-24] MEDS: PEG 400/HYPROMELLOSE/GLYCERIN 15 ML DROPS OP SCH ×2 (08:23→21:25)
--- NOTE | 2021-07-24 11:01 | NUR ---
Discharge Planning: EDWARD faxed pt referral to [facility] [phone] to follow up Addendum: 07/24/21 at 1215 by Mariaa Garcia DP [facility] [phone] accepted to Rm 41B, EDWARD arranged transport with [facility] [phone] ALS with RT patient is Trach/Vent/Peg time request 2:30pm trip#[id number]
--- NOTE | 2021-07-24 12:07 | NUR ---
DISCHARGE PLANNING Order to discharge back to [facility], per dc planner intern pt accepted back & have room ready for pt. Called & informed pt's mother, Odalys Jacinto, ph [phone], is agreeable with dc back today. DC to [facility] with dc code: 03
--- NOTE | 2021-07-24 20:00 | NUR ---
Repositioned and turned pt to prevent further skin breakdown. Left knee dressing changed with new foam dressing. Pt is nonverbal, on mechanical vent, vs stable, nsr on tele, suctioned as needed with thick mucus plug noted. Meds given via g-tube. Assuming care will continue to monitor.
[2021-07-24] MEDS: CEFEPIME 2 GM in D5W 100 ML IV SCH (21:22)
--- NOTE | 2021-07-24 23:37 | NUR ---
[facility] AND INFORMED THEN THAT THE TRANSPORT THAT THEY SCHEDULE WAS UNABLE TO TAKE HIM THEY DO NOT DO O2. INFORMED THEM THAT PT IS MECH VENT 40% TREC TO VENT . 2009 RECEIVED A CALL ASKING IF PT NEEDS O2 I INFORMED AGAIN THE PT IS MECH VENT AND IS ON 40% 2044 RECIEVED ANOTHER CALL ASKING AGAIN ABOUT PT NEEDS BLS OR ALS. AGAIN INFORMED MECH VENT 40% 2199 RECIVED CALL TELLING ME PT WILL BE PICKED UP AT 0100 WITH [facility] 2300 RECIVED CALLED AGAIN THAT [facility] CALLED AND SAID THAT THEY CANT TAKE HIM DO TO VENT . I EXPLAINED TO THE CALLER THAT I HAVE TOLD THEM MANY TIMES THAT THE PT IS A MECH VENT @40% 0 CALLED AND ASK IF THEY CAN SET HIM UP FOR MORNING RN AWARE AND CHARGE NURSE
[2021-07-25 00:30] VITALS: BP_SYST 137
[2021-07-25] MEDS: traMADol HCL HCL 50 MG TABLET (ULTRAM) PO SCH ×2 (00:55→06:25)
[2021-07-25] MEDS: D5LR 1,000 ML IV SCH ×2 (00:56→09:29)
--- NOTE | 2021-07-25 04:00 | NUR ---
No significant changes, vs stable,no acute distress, suctioned as needed, trach care done by RT. Tube feeding in progress, tube feeding with 50cc residual. Repositioned and turned, pericare and sponge bath provided early evening.
--- NOTE | 2021-07-25 04:40 | NUR ---
[facility] NEW TRIP NUMBER [id number] THEY WILL HAVE A UPDATE AROUND [id number] ---[phone]
[2021-07-25] MEDS: LANSOPRAZOLE 30 MG CAPSULE.DR GT SCH (06:25)
--- NOTE | 2021-07-25 06:45 | NUR ---
bs 77 d5 LR at 30cc/h in progress.
[2021-07-25 08:00] VITALS: BP_SYST 127
[2021-07-25] MEDS: clonazePAM 0.5 MG TABLET GT SCH (09:29)
[2021-07-25] MEDS: BISACODYL 10 MG/SUPPOSITORY RC SCH (09:29)
[2021-07-25] MEDS: PEG 400/HYPROMELLOSE/GLYCERIN 15 ML DROPS OP SCH (09:29)
[2021-07-25] MEDS: CALCIUM CARBONATE/VITAMIN D3 1 TAB TABLET GT SCH (09:30)
[2021-07-25] MEDS: CHOLECALCIFEROL (VITAMIN D3) 5,000 UNIT TABLET GT SCH (09:30)
[2021-07-25] MEDS: ASCORBIC ACID 500 MG TABLET GT SCH (09:30)
[2021-07-25] MEDS: MULTIVITAMINS TAB 1 TABLET GT SCH (09:30)
[2021-07-25] MEDS: CHLORHEXIDINE GLUCONATE 15 ML/DOSE, 480 ML MM SCH (09:30)
[2021-07-25] MEDS: BALSAM PERU/CASTOR OIL 56.7 GM OINT...G. TP SCH (09:31)
[2021-07-25] MEDS: CEFEPIME 2 GM in D5W 100 ML IV SCH (09:32)
[2021-07-25 11:38] VITALS: BP_SYST 124
== END 2021-07-25 12:00 | DRG 720 ==
LOC: SED 17:58 → SIC 21:57 → STU 23:08
PROVIDERS: ADMIT Internal Medicine; ATTEND Internal Medicine
PROC: 5A1955Z Respiratory Ventilation, Greater than 96 Consecutive Hours (ICD-10-PCS; principal; 2021-07-18)
DX: A41.9 Sepsis, unspecified organism (principal); J95.851 Ventilator associated pneumonia; G93.49 Other encephalopathy; E43 Unspecified severe protein-calorie malnutrition; J96.10 Chronic respiratory failure, unspecified whether with hypoxia or hypercapnia; F72 Severe intellectual disabilities; Z93.0 Tracheostomy status; B96.1 Klebsiella pneumoniae [K. pneumoniae] as the cause of diseases classified elsewhere; B96.5 Pseudomonas (aeruginosa) (mallei) (pseudomallei) as the cause of diseases classified elsewhere; Z16.24 Resistance to multiple antibiotics; D50.9 Iron deficiency anemia, unspecified; E11.9 Type 2 diabetes mellitus without complications; K21.9 Gastro-esophageal reflux disease without esophagitis; R65.20 Severe sepsis without septic shock; L89.309 Pressure ulcer of unspecified buttock, unspecified stage; L89.899 Pressure ulcer of other site, unspecified stage; Z20.822 Contact with and (suspected) exposure to COVID-19; D63.8 Anemia in other chronic diseases classified elsewhere; G80.0 Spastic quadriplegic cerebral palsy; I25.10 Atherosclerotic heart disease of native coronary artery without angina pectoris; Z16.12 Extended spectrum beta lactamase (ESBL) resistance; Z93.1 Gastrostomy status; Z99.11 Dependence on respirator [ventilator] status; Z79.2 Long term (current) use of antibiotics; Z79.899 Other long term (current) drug therapy; Z68.28 Body mass index [BMI] 28.0-28.9, adult
CPT/HCPCS: 36415; 36600; 71045; 71250-TC; 76376; 80048; 80053; 80202; 81000; 82803-TC; 82962; 83605; 83735; 84100; 84484; 85007; 85025; 85027; 85610-TC; 87040; 87070-TC; 87081; 87086; 87205-TC; 93005; 94002; 94003; 94640; 94760; 96365; 96366; 99291; G0378; J0692; J2543; J2997; J3370; J7050; J7060; Q9964; Q9967

== ENCOUNTER 2021-08-13 04:28 | Inpatient (IN) | payer MEDICAID ==
[2021-08-13] VITALS (8 sets, daily range): BP systolic 90–126
[~2021-08-13] VITALS: Ht 162.6 cm; Wt 59.0 kg
[~2021-08-13 04:28] MED LIST changes: +AMIN30LI2 PO; +BISA10SU77 RC; +DOXY100C GT; +VITD2000 GT; +ZINC50TA69 GT
[2021-08-13] MEDS ORDERED: MEROPENEM 1 GM IVPB PREMIX 50 ML IV ONE (04:45)
[2021-08-13] MEDS ORDERED: VANCOMYCIN HCL 1,000 MG in NS 250 ML IV ONE (04:45)
[2021-08-13] MEDS ORDERED: NACL 0.9% 2,000 ML IV ONE (04:45)
[2021-08-13] MEDS ORDERED: VANCOMYCIN HCL 1000 MG/VIAL IV ONE (05:47)
[2021-08-13 06:30] LABS: BASOPHILS # (AUTO) 0.1 K/uL (0.0-0.2); BASOPHILS % (AUTO) 0.3 % (0.0-2.0); EOSINOPHILS # (AUTO) 0.1 K/uL (0.0-0.4); EOSINOPHILS % (AUTO) 0.3 % (0.0-4.0); HEMATOCRIT 33.1 % (36-54); HEMOGLOBIN 10.7 g/dL (14.0-18.0); LYMPHOCYTES # (AUTO) 2.4 K/uL (1.0-5.5); LYMPHOCYTES % (AUTO) 6.6 % (20.5-51.5); MEAN CORPUSCULAR HEMOGLOBIN 28 pg (27-31); MEAN CORPUSCULAR HGB CONC 32 % (32-36); MEAN CORPUSCULAR VOLUME 87 fL (79.0-98.0); MONOCYTES # (AUTO) 2.2 K/uL (0.0-1.0); MONOCYTES % (AUTO) 5.9 % (1.7-9.3); NEUTROPHILS # (AUTO) 32.1 K/uL (1.8-7.7); NEUTROPHILS % (AUTO) 86.9 % (40.0-70.0); PLATELET COUNT (AUTO) 223 K/uL (130-430); RED CELL DISTRIBUTION WIDTH 18.7 % (9.0-15.0)
[2021-08-13 06:37] LABS: CALCIUM 8.6 mg/dL (8.4-11.0); CREATININE 0.85 mg/dL (0.55-1.30); POTASSIUM 4.5 mmol/L (3.5-5.1)
[2021-08-13 06:38] LABS: WHITE BLOOD COUNT (AUTO) 36.9 K/uL (4.8-10.8)
[2021-08-13 06:41] LABS: BILIRUBIN,URINE NEGATIVE (NEGATIVE); BLOOD, URINE 3+ (NEGATIVE); CLARITY/URINE CLEAR (CLEAR); COLOR,URINE YELLOW (YELLOW); GLUCOSE,URINE NEGATIVE (NEGATIVE); KETONES,URINE NEGATIVE (NEGATIVE); LEUKOCYTE ESTERASE ,URINE 2+ (NEGATIVE); NITRITE, URINE NEGATIVE (NEGATIVE); PROTEIN URINE 2+ (NEGATIVE); UROBILINOGEN,URINE 0.2 (0.2-1.0)
[2021-08-13 06:52] LABS: ALBUMIN 2.6 g/dL (3.4-4.8); TOTAL BILIRUBIN 0.4 mg/dL (0.0-1.0)
[2021-08-13 07:05] LABS: BACTERIA,URINE MANY /HPF (None Seen); MUCUS,URINE 1+ /LPF (None Seen); WBC,URINE 20-50 /HPF (0-3)
[2021-08-13] MEDS ORDERED: ACETAMINOPHEN 650 MG/20.3 ML UDC PO ONE (07:30)
[2021-08-13] MEDS ORDERED: PIPERACILLIN/TAZO 3.375 GM in NS 50 ML IV ONE (07:30)
[2021-08-13] MEDS ORDERED: NACL 0.9% 1,000 ML IV ONE ×2 (07:30)
[2021-08-13] MEDS ORDERED: PIPERACILLIN/TAZOBACTAM 3.375 GM/VIAL (ZOSYN) IV ONE (08:56)
[2021-08-13] MEDS ORDERED: ALBUTEROL SULFATE 0.083% 2.5 MG/3 ML VIAL.NEB INH PRN (14:30)
[2021-08-13] MEDS ORDERED: ACETAMINOPHEN 650 MG/20.3 ML UDC PO SCH (14:30)
[2021-08-13] MEDS ORDERED: SENNOSIDES 8.6 MG TABLET GT PRN (14:30)
[2021-08-13] MEDS ORDERED: ACETAMINOPHEN 650 MG/20.3 ML UDC GT PRN (14:30)
[2021-08-13] MEDS ORDERED: traMADol HCL HCL 50 MG TABLET (ULTRAM) GT PRN (14:30)
[2021-08-13] MEDS ORDERED: NON-FORMULARY MEDICATION (Amino Acids/Protein Hydrolys (Pro-Stat Liquid) 30 ML) GT SCH (15:00)
[2021-08-13] MEDS ORDERED: LACTULOSE 20 GM/30 ML UDC GT ONE (15:00)
[2021-08-13] MEDS ORDERED: DEXTROSE 50% JECT 50 ML DISP.SYRIN IVP PRN (15:15)
[2021-08-13] MEDS ORDERED: INSULIN REGULAR, HUMAN 100 UNITS/ML, 10 ML VIAL (humuLIN R) SUBCUT PRN (15:15)
[2021-08-13] MEDS ORDERED: traMADol HCL HCL 50 MG TABLET (ULTRAM) PO ONE (15:15)
[2021-08-13] MEDS: NACL 0.9% 1,000 ML IV SCH (16:42)
[2021-08-13] MEDS: traMADol HCL HCL 50 MG TABLET (ULTRAM) GT SCH (17:29)
[2021-08-13] MEDS: PIPERACILLIN/TAZO 3.375/DEX-IS 50 ML IV SCH (17:52)
[2021-08-13] MEDS ORDERED: CARBOXYMETHYLCELLULOSE SODIUM OP SCH (21:00)
[2021-08-13] MEDS: clonazePAM 0.5 MG TABLET GT SCH (22:02)
[2021-08-13] MEDS: CALCIUM CARBONATE/VITAMIN D3 1 TAB TABLET GT SCH (22:03)
[2021-08-13] MEDS: ENOXAPARIN SODIUM 40 MG/0.4 ML SYRINGE SUBCUT SCH (22:12)
[2021-08-13] MEDS: CHLORHEXIDINE GLUCONATE 15 ML/DOSE, 480 ML MM SCH (22:15)
[2021-08-14] MEDS: traMADol HCL HCL 50 MG TABLET (ULTRAM) GT SCH ×5 (00:33→23:43)
[2021-08-14] MEDS: PIPERACILLIN/TAZO 3.375/DEX-IS 50 ML IV SCH ×5 (00:34→23:44)
[2021-08-14] MEDS: NACL 0.9% 1,000 ML IV SCH ×2 (00:35→10:05)
[2021-08-14 01:19] VITALS: BP_SYST 115
[2021-08-14 06:54] LABS: BASOPHILS # (AUTO) 0.1 K/uL (0.0-0.2); BASOPHILS % (AUTO) 0.3 % (0.0-2.0); EOSINOPHILS # (AUTO) 0.1 K/uL (0.0-0.4); EOSINOPHILS % (AUTO) 0.4 % (0.0-4.0); HEMATOCRIT 30.8 % (36-54); HEMOGLOBIN 9.8 g/dL (14.0-18.0); LYMPHOCYTES # (AUTO) 1.6 K/uL (1.0-5.5); LYMPHOCYTES % (AUTO) 9.4 % (20.5-51.5); MEAN CORPUSCULAR HEMOGLOBIN 28 pg (27-31); MEAN CORPUSCULAR HGB CONC 32 % (32-36); MEAN CORPUSCULAR VOLUME 88 fL (79.0-98.0); MONOCYTES # (AUTO) 0.8 K/uL (0.0-1.0); MONOCYTES % (AUTO) 4.6 % (1.7-9.3); NEUTROPHILS # (AUTO) 14.8 K/uL (1.8-7.7); NEUTROPHILS % (AUTO) 85.3 % (40.0-70.0); PLATELET COUNT (AUTO) 194 K/uL (130-430); WHITE BLOOD COUNT (AUTO) 17.4 K/uL (4.8-10.8)
[2021-08-14 07:32] LABS: ALBUMIN 2.3 g/dL (3.4-4.8); CALCIUM 8.4 mg/dL (8.4-11.0); CREATININE 0.55 mg/dL (0.55-1.30); POTASSIUM 3.7 mmol/L (3.5-5.1); TOTAL BILIRUBIN 0.2 mg/dL (0.0-1.0)
[2021-08-14 08:15] VITALS: BP_SYST 123
[2021-08-14] MEDS ORDERED: CHOLECALCIFEROL (VITAMIN D-3) 400 UNIT TABLET GT SCH (09:00)
[2021-08-14] MEDS: clonazePAM 0.5 MG TABLET GT SCH ×2 (09:18→20:34)
[2021-08-14] MEDS: MULTIVITAMINS TAB 1 TABLET GT SCH (09:18)
[2021-08-14] MEDS: PANTOPRAZOLE SODIUM 40 MG TAB GT SCH (09:18)
[2021-08-14] MEDS: CALCIUM CARBONATE/VITAMIN D3 1 TAB TABLET GT SCH ×2 (09:18→20:37)
[2021-08-14] MEDS: ASCORBIC ACID 500 MG TABLET GT SCH (09:19)
[2021-08-14] MEDS: DOCUSATE SODIUM 100 MG CAPSULE PO SCH (09:19)
[2021-08-14] MEDS: CHLORHEXIDINE GLUCONATE 15 ML/DOSE, 480 ML MM SCH ×2 (09:21→20:34)
[2021-08-14] MEDS ORDERED: CHOLECALCIFEROL (VITAMIN D3) 5,000 UNIT TABLET GT ONE (10:00)
[2021-08-14] MEDS: BISACODYL 10 MG/SUPPOSITORY RC SCH (11:35)
[2021-08-14 12:23] VITALS: BP_SYST 120
[2021-08-14] MEDS: VANCOMYCIN HCL 1,250 MG in NS 250 ML IV SCH ×2 (13:22→20:40)
[2021-08-14 16:06] VITALS: BP_SYST 121
[2021-08-14 19:24] VITALS: BP_SYST 169
[2021-08-14 19:26] VITALS: BP_SYST 152
[2021-08-14] MEDS: ENOXAPARIN SODIUM 40 MG/0.4 ML SYRINGE SUBCUT SCH (20:36)
[2021-08-14] MEDS: PEG 400/HYPROMELLOSE/GLYCERIN 15 ML DROPS OP PRN (20:36)
[2021-08-15 02:08] VITALS: BP_SYST 153
[2021-08-15] MEDS: NACL 0.9% 1,000 ML IV SCH ×2 (03:58→19:57)
[2021-08-15] MEDS: traMADol HCL HCL 50 MG TABLET (ULTRAM) GT SCH ×4 (05:17→23:16)
[2021-08-15] MEDS: VANCOMYCIN HCL 1,250 MG in NS 250 ML IV SCH (05:17)
[2021-08-15 06:19] LABS: BASOPHILS # (AUTO) 0.1 K/uL (0.0-0.2); BASOPHILS % (AUTO) 0.9 % (0.0-2.0); EOSINOPHILS # (AUTO) 0.1 K/uL (0.0-0.4); EOSINOPHILS % (AUTO) 0.8 % (0.0-4.0); HEMOGLOBIN 9.8 g/dL (14.0-18.0); LYMPHOCYTES % (AUTO) 23.5 % (20.5-51.5); MEAN CORPUSCULAR HEMOGLOBIN 29 pg (27-31); MEAN CORPUSCULAR HGB CONC 33 % (32-36); MEAN CORPUSCULAR VOLUME 89 fL (79.0-98.0); MONOCYTES # (AUTO) 0.4 K/uL (0.0-1.0); MONOCYTES % (AUTO) 4.9 % (1.7-9.3); NEUTROPHILS % (AUTO) 69.9 % (40.0-70.0); PLATELET COUNT (AUTO) 167 K/uL (130-430); RED BLOOD CELL COUNT(AUTO) 3.38 MIL/uL (4.2-6.2); RED CELL DISTRIBUTION WIDTH 18.2 % (9.0-15.0); WHITE BLOOD COUNT (AUTO) 8.6 K/uL (4.8-10.8)
[2021-08-15 06:34] LABS: CALCIUM 8.5 mg/dL (8.4-11.0); CREATININE 0.45 mg/dL (0.55-1.30); POTASSIUM 4.1 mmol/L (3.5-5.1)
[2021-08-15] MEDS: PIPERACILLIN/TAZO 3.375/DEX-IS 50 ML IV SCH ×4 (06:36→23:16)
[2021-08-15 08:20] VITALS: BP_SYST 148
[2021-08-15] MEDS: MULTIVITAMINS TAB 1 TABLET GT SCH (09:20)
[2021-08-15] MEDS: CHOLECALCIFEROL (VITAMIN D3) 5,000 UNIT TABLET GT SCH (09:20)
[2021-08-15] MEDS: CALCIUM CARBONATE/VITAMIN D3 1 TAB TABLET GT SCH ×2 (09:20→21:07)
[2021-08-15] MEDS: ASCORBIC ACID 500 MG TABLET GT SCH (09:21)
[2021-08-15] MEDS: DOCUSATE SODIUM 100 MG CAPSULE PO SCH (09:21)
[2021-08-15] MEDS: clonazePAM 0.5 MG TABLET GT SCH ×2 (09:21→21:07)
[2021-08-15] MEDS: PANTOPRAZOLE SODIUM 40 MG TAB GT SCH (09:21)
[2021-08-15] MEDS: CHLORHEXIDINE GLUCONATE 15 ML/DOSE, 480 ML MM SCH ×2 (09:22→21:17)
[2021-08-15] MEDS: BISACODYL 10 MG/SUPPOSITORY RC SCH (09:22)
[2021-08-15 11:27] VITALS: BP_SYST 156
[2021-08-15 15:57] VITALS: BP_SYST 149
[2021-08-15 19:25] VITALS: BP_SYST 160
[2021-08-15] MEDS: ENOXAPARIN SODIUM 40 MG/0.4 ML SYRINGE SUBCUT SCH (21:09)
[2021-08-15] MEDS: PEG 400/HYPROMELLOSE/GLYCERIN 15 ML DROPS OP PRN (22:16)
[2021-08-16] VITALS (9 sets, daily range): BP systolic 131–158
[2021-08-16] MEDS: traMADol HCL HCL 50 MG TABLET (ULTRAM) GT SCH ×3 (05:01→17:47)
[2021-08-16] MEDS: PIPERACILLIN/TAZO 3.375/DEX-IS 50 ML IV SCH ×3 (05:02→17:47)
[2021-08-16] MEDS: MULTIVITAMINS TAB 1 TABLET GT SCH (09:04)
[2021-08-16] MEDS: PANTOPRAZOLE SODIUM 40 MG TAB GT SCH (09:04)
[2021-08-16] MEDS: CALCIUM CARBONATE/VITAMIN D3 1 TAB TABLET GT SCH ×2 (09:04→21:36)
[2021-08-16] MEDS: ASCORBIC ACID 500 MG TABLET GT SCH (09:04)
[2021-08-16] MEDS: DOCUSATE SODIUM 100 MG CAPSULE PO SCH (09:04)
[2021-08-16] MEDS: BISACODYL 10 MG/SUPPOSITORY RC SCH (09:04)
[2021-08-16] MEDS: clonazePAM 0.5 MG TABLET GT SCH ×2 (09:05→21:36)
[2021-08-16] MEDS: CHOLECALCIFEROL (VITAMIN D3) 5,000 UNIT TABLET GT SCH (09:08)
[2021-08-16] MEDS: CHLORHEXIDINE GLUC 0.12% 15 ML MOUTHWASH UDC MM SCH ×2 (11:25→21:00)
[2021-08-16] MEDS: NACL 0.9% 1,000 ML IV SCH (16:01)
[2021-08-16] MEDS ORDERED: PIPE3.379 IV (17:34)
[2021-08-16] MEDS: ENOXAPARIN SODIUM 40 MG/0.4 ML SYRINGE SUBCUT SCH (21:39)
[2021-08-17] MEDS: PIPERACILLIN/TAZO 3.375/DEX-IS 50 ML IV SCH ×3 (00:16→11:46)
[2021-08-17 00:38] VITALS: BP_SYST 137
[2021-08-17] MEDS: traMADol HCL HCL 50 MG TABLET (ULTRAM) GT SCH ×2 (01:19→06:08)
[2021-08-17] MEDS: NACL 0.9% 1,000 ML IV SCH (05:55)
[2021-08-17] MEDS: BISACODYL 10 MG/SUPPOSITORY RC SCH (08:51)
[2021-08-17] MEDS: ASCORBIC ACID 500 MG TABLET GT SCH (08:52)
[2021-08-17] MEDS: PANTOPRAZOLE SODIUM 40 MG TAB GT SCH (08:52)
[2021-08-17] MEDS: clonazePAM 0.5 MG TABLET GT SCH (08:52)
[2021-08-17] MEDS: CALCIUM CARBONATE/VITAMIN D3 1 TAB TABLET GT SCH (08:52)
[2021-08-17] MEDS: DOCUSATE SODIUM 100 MG CAPSULE PO SCH (08:52)
[2021-08-17] MEDS: CHOLECALCIFEROL (VITAMIN D3) 5,000 UNIT TABLET GT SCH (08:52)
[2021-08-17] MEDS: MULTIVITAMINS TAB 1 TABLET GT SCH (08:52)
[2021-08-17] MEDS: CHLORHEXIDINE GLUC 0.12% 15 ML MOUTHWASH UDC MM SCH (08:53)
[2021-08-17] MEDS ORDERED: PIPE3.379 IV (11:16)
[2021-08-17 11:29] VITALS: BP_SYST 125
[2021-08-17 12:39] VITALS: BP_SYST 144
== END 2021-08-17 12:35 | DRG 720 ==
LOC: SED 04:28 → STU 07:17
PROVIDERS: ADMIT Internal Medicine; ATTEND Internal Medicine
PROC: 5A1955Z Respiratory Ventilation, Greater than 96 Consecutive Hours (ICD-10-PCS; principal; 2021-08-13)
DX: A41.50 Gram-negative sepsis, unspecified (principal); G82.50 Quadriplegia, unspecified; G93.41 Metabolic encephalopathy; J95.851 Ventilator associated pneumonia; J15.9 Unspecified bacterial pneumonia; J96.10 Chronic respiratory failure, unspecified whether with hypoxia or hypercapnia; E43 Unspecified severe protein-calorie malnutrition; G93.1 Anoxic brain damage, not elsewhere classified; N39.0 Urinary tract infection, site not specified; D63.8 Anemia in other chronic diseases classified elsewhere; R13.10 Dysphagia, unspecified; N31.9 Neuromuscular dysfunction of bladder, unspecified; D50.9 Iron deficiency anemia, unspecified; Y95 Nosocomial condition; Z20.822 Contact with and (suspected) exposure to COVID-19; Z99.11 Dependence on respirator [ventilator] status; Z93.0 Tracheostomy status; Z68.22 Body mass index [BMI] 22.0-22.9, adult; Z87.440 Personal history of urinary (tract) infections
CPT/HCPCS: 36415; 71045; 80048; 80053; 80202; 81000; 82962; 83036; 83605; 85025; 87040; 87070-TC; 87081; 87086; 87205-TC; 93005; 94002; 94003; 94640; 94760; 96361; 96365; 96366; 99285; G0378; J1650; J1815; J2185; J2543; J3370; J7030; J7050

== ENCOUNTER 2021-08-24 10:59 | Inpatient (IN) | payer MEDICAID ==
[2021-08-24] VITALS (9 sets, daily range): BP systolic 105–139
[~2021-08-24] VITALS: Ht 162.6 cm; Wt 59.0 kg
[~2021-08-24 10:59] MED LIST changes: -DOXY100C GT; +PIPE3.379 IV
--- NOTE | 2021-08-24 11:27 | NUR ---
Patient to ER bed 8 for evaluation. Side rails up. Report given to Celio IVY.
[2021-08-24] MEDS ORDERED: PIPERACILLIN/TAZO 3.38 GM in D5W 50 ML IV ONE (12:00)
[2021-08-24] MEDS ORDERED: NS 1000 ML IV.SOLN IV ONE (12:00)
[2021-08-24] MEDS ORDERED: VANCOMYCIN HCL 1,000 MG in D5W 250 ML IV ONE (12:00)
[2021-08-24] MEDS ORDERED: ACETAMINOPHEN 650 MG SUPP.RECT RC ONE (12:00)
[2021-08-24] MEDS ORDERED: VANCOMYCIN HCL 1000 MG/VIAL IV ONE (12:17)
[2021-08-24] MEDS ORDERED: PIPERACILLIN/TAZOBACTAM 3.375 GM/VIAL (ZOSYN) IV ONE (12:17)
--- NOTE | 2021-08-24 12:38 | NUR ---
COVID-19 MAYO SWAB AND MRSA SWAB OBTAINED AND SENT TO THE LAB.
[2021-08-24 12:49] LABS: BASOPHILS # (AUTO) 0.1 K/uL (0.0-0.2); BASOPHILS % (AUTO) 0.6 % (0.0-2.0); EOSINOPHILS # (AUTO) 0.2 K/uL (0.0-0.4); EOSINOPHILS % (AUTO) 1.7 % (0.0-4.0); HEMATOCRIT 35.7 % (36-54); HEMOGLOBIN 11.7 g/dL (14.0-18.0); LYMPHOCYTES # (AUTO) 2.8 K/uL (1.0-5.5); LYMPHOCYTES % (AUTO) 22.5 % (20.5-51.5); MEAN CORPUSCULAR HEMOGLOBIN 29 pg (27-31); MEAN CORPUSCULAR HGB CONC 33 % (32-36); MEAN CORPUSCULAR VOLUME 88 fL (79.0-98.0); MONOCYTES # (AUTO) 0.8 K/uL (0.0-1.0); NEUTROPHILS # (AUTO) 8.7 K/uL (1.8-7.7); NEUTROPHILS % (AUTO) 69.2 % (40.0-70.0); PLATELET COUNT (AUTO) 366 K/uL (130-430); RED BLOOD CELL COUNT(AUTO) 4.04 MIL/uL (4.2-6.2); RED CELL DISTRIBUTION WIDTH 17.4 % (9.0-15.0); WHITE BLOOD COUNT (AUTO) 12.7 K/uL (4.8-10.8)
[2021-08-24 13:01] LABS: ANION GAP 7 (5-15); CALCIUM 9.2 mg/dL (8.4-11.0); CHLORIDE 100 mmol/L (98-107); CREATININE 0.58 mg/dL (0.55-1.30); GLUCOSE 107 mg/dL (70-99); POTASSIUM 4.5 mmol/L (3.5-5.1); SODIUM SERUM 136 mmol/L (136-145); UREA NITROGEN, BLOOD 23 mg/dL (8-21)
[2021-08-24 13:06] LABS: GFR AFRICAN AMERICAN 198 mL/min (>90)
[2021-08-24 13:10] LABS: ALANINE AMINOTRANSFERASE 6 U/L (12-78); ASPARTATE AMINOTRANSFERASE 13 U/L (10-37); TOTAL BILIRUBIN 0.4 mg/dL (0.0-1.0)
[2021-08-24] MEDS ORDERED: ALBUTEROL SULFATE 0.083% 2.5 MG/3 ML VIAL.NEB INH PRN (13:30)
--- NOTE | 2021-08-24 13:42 | NUR ---
Urine sent to lab for UA at 13:35.
[2021-08-24] MEDS ORDERED: DEXTROSE 50% JECT 50 ML DISP.SYRIN IVP PRN (13:45)
[2021-08-24] MEDS ORDERED: INSULIN REGULAR, HUMAN 100 UNITS/ML, 10 ML VIAL (humuLIN R) SUBCUT PRN (13:45)
--- NOTE | 2021-08-24 13:48 | NUR ---
ECHOCARDIOGRAM BEING DONE AT BEDSIDE.
[2021-08-24] MEDS: NACL 0.9% 1,000 ML IV SCH ×2 (14:09→20:50)
[2021-08-24 14:15] LABS: BILIRUBIN,URINE NEGATIVE (NEGATIVE); BLOOD, URINE 1+ (NEGATIVE); COLOR,URINE YELLOW (YELLOW); GLUCOSE,URINE NEGATIVE (NEGATIVE); KETONES,URINE NEGATIVE (NEGATIVE); LEUKOCYTE ESTERASE ,URINE TRACE (NEGATIVE); NITRITE, URINE NEGATIVE (NEGATIVE); PROTEIN URINE TRACE (NEGATIVE)
--- NOTE | 2021-08-24 14:18 | NUR ---
Admit bed requested Patient will be admitted to care of . Admitted to TELE unit. Diagnosis SEPSIS Inpatient (Yes or No) Y Observation (Yes or No) N Orientation concerns or request close to nursing station (Yes or No) N Covid Status N On vent or bipap Y, TRACHED Isolation requirements CONTACT, ESBL, MRSA Needs a sitter N From Home (Yes or if No enter name of facility) N. NICKA COLIN Requires Dialysis (Yes or No) N Med Rec Completed (Yes of No) Y
[2021-08-24 14:21] LABS: CLARITY/URINE SLIGHTLY CLOUDY (CLEAR)
[2021-08-24 14:25] LABS: BACTERIA,URINE FEW /HPF (None Seen)
[2021-08-24] MEDS ORDERED: NON-FORMULARY MEDICATION (Amino Acids/Protein Hydrolys (Pro-Stat Liquid) 30 ML) GT SCH (15:00)
[2021-08-24] MEDS: IPRATROPIUM BROM 0.5 MG/2.5 ML VIAL.NEB (ATROVENT) INH SCH ×3 (15:43→23:00)
--- NOTE | 2021-08-24 16:55 | NUR ---
Patient will be admitted to care of [facility]. Admitted to TELE unit. Will go to room 134A. Belongings list completed. Complete and up to date summary report printed. SBAR report to be given at bedside with opportunity for questions.
--- NOTE | 2021-08-24 17:15 | NUR ---
RT NOTE: 1715 Pt transferred from ER 8 to 134 A on vent. No issues during transport. Patient tolerated transfer well. Addendum: 08/24/21 at 1725 by Joselin Judge RT Amended: Links added.
--- NOTE | 2021-08-24 17:30 | NUR ---
received pt.from ER,admission assessment done,tube feeding started and told incoming RN was not able to take pictures of pressure ulcer and ask them to do it.
--- NOTE | 2021-08-24 17:49 | NUR ---
CONSULT: PULMO RES F TROY PRYOR [phone] S/W: MARLON EXCHANGE
--- NOTE | 2021-08-24 17:50 | NUR ---
CONSULT: Luis E SEPSIS ROB ARELLANO [phone] S/W: MAR[place]ON
--- NOTE | 2021-08-24 17:52 | NUR ---
CONSULT: CARDIO PERICARDITIS SHERIN OCONNELL [phone] S/W: MARLON
--- NOTE | 2021-08-24 17:54 | NUR ---
CONSULT: UROLOGY LEFT KIDNEY STONES JUAN DIEGO LOPEZ [phone] LEFT DETAILED MESSAGE
[2021-08-24] MEDS ORDERED: PIPERACILLIN/TAZOBACTAM 3.375 GM/DEX-IS 50 ML PIGGYBACK IV SCH (18:00)
[2021-08-24] MEDS: PIPERACILLIN/TAZOBACTAM 3.375 GM/ D5W 50 ML IV SCH ×2 (18:26)
[2021-08-24] MEDS: traMADol HCL HCL 50 MG TABLET (ULTRAM) PO SCH (18:26)
--- NOTE | 2021-08-24 19:26 | NUR ---
Opening note Patient is resting w/eyes closed. No distress, oxygen saturation is 100%, and nonlabored breathing on ventilator with settings as ordered. Patient has IVF infusing via left subclavian CL. GT feeding is running at 60 ml/hr. Escobar catheter drainage bag to gravity. Bed is locked in lowest position, side rails up and bed alarm on.
[2021-08-24] MEDS: SENNOSIDES 8.6 MG TABLET GT SCH (20:51)
[2021-08-24] MEDS: clonazePAM 0.5 MG TABLET GT SCH (20:51)
[2021-08-24] MEDS: CHLORHEXIDINE GLUC 0.12% 15 ML MOUTHWASH UDC MM SCH (20:52)
--- NOTE | 2021-08-24 21:08 | NUR ---
Meds Scheduled meds given via g-tube. Residual assessed ; 0 ml noted. Acucheck result; 77 mg/dL.
--- NOTE | 2021-08-24 23:46 | NUR ---
Dr. Kristal Giraldo here to see patient
[2021-08-25] MEDS: traMADol HCL HCL 50 MG TABLET (ULTRAM) PO SCH ×4 (00:06→17:45)
[2021-08-25] MEDS: PIPERACILLIN/TAZOBACTAM 3.375 GM/ D5W 50 ML IV SCH ×8 (00:06→17:45)
[2021-08-25 00:19] VITALS: BP_SYST 139
--- NOTE | 2021-08-25 04:10 | NUR ---
rounds, wound care - pictures Patient was provide with CHG bath/bed bath. Wound care to left knee and bilateral buttocks done - will update MST charting. Pictures were taken.
[2021-08-25 04:22] VITALS: BP_SYST 139
[2021-08-25] MEDS: IPRATROPIUM BROM 0.5 MG/2.5 ML VIAL.NEB (ATROVENT) INH SCH ×6 (04:27→23:47)
[2021-08-25] MEDS: ACETAMINOPHEN 650 MG/20.3 ML UDC GT PRN (04:51)
--- NOTE | 2021-08-25 04:51 | NUR ---
Fever - Tylenol Fever noted; 101.5 oral thermometer and HR 121. Patient was given Tylenol as ordered along w/ free water flush and provided w/cooling measures.
--- NOTE | 2021-08-25 05:53 | NUR ---
temp recheck Oral temp decreased to 100.5 and HR decreased to 105, wctm
[2021-08-25] MEDS: LANSOPRAZOLE 30 MG CAPSULE.DR GT SCH (06:33)
[2021-08-25 07:22] LABS: BASOPHILS # (AUTO) 0.1 K/uL (0.0-0.2); BASOPHILS % (AUTO) 0.5 % (0.0-2.0); EOSINOPHILS # (AUTO) 0.1 K/uL (0.0-0.4); EOSINOPHILS % (AUTO) 0.7 % (0.0-4.0); HEMATOCRIT 31.9 % (36-54); HEMOGLOBIN 10.5 g/dL (14.0-18.0); LYMPHOCYTES # (AUTO) 2.1 K/uL (1.0-5.5); LYMPHOCYTES % (AUTO) 18.1 % (20.5-51.5); MEAN CORPUSCULAR HEMOGLOBIN 29 pg (27-31); MEAN CORPUSCULAR HGB CONC 33 % (32-36); MEAN CORPUSCULAR VOLUME 88 fL (79.0-98.0); MONOCYTES # (AUTO) 0.9 K/uL (0.0-1.0); NEUTROPHILS # (AUTO) 8.5 K/uL (1.8-7.7); NEUTROPHILS % (AUTO) 72.7 % (40.0-70.0); PLATELET COUNT (AUTO) 323 K/uL (130-430); RED BLOOD CELL COUNT(AUTO) 3.62 MIL/uL (4.2-6.2); RED CELL DISTRIBUTION WIDTH 17.4 % (9.0-15.0); WHITE BLOOD COUNT (AUTO) 11.7 K/uL (4.8-10.8)
--- NOTE | 2021-08-25 07:58 | NUR ---
Patient resting comfortably in bed with no respiratory distress at this time.
[2021-08-25 08:00] VITALS: BP_SYST 119
[2021-08-25 08:13] LABS: CALCIUM 8.7 mg/dL (8.4-11.0); CREATININE 0.51 mg/dL (0.55-1.30); POTASSIUM 4.2 mmol/L (3.5-5.1); TOTAL BILIRUBIN 0.3 mg/dL (0.0-1.0)
[2021-08-25 08:14] LABS: ALBUMIN 2.6 g/dL (3.4-4.8)
[2021-08-25] MEDS: CHLORHEXIDINE GLUC 0.12% 15 ML MOUTHWASH UDC MM SCH ×2 (09:00→22:44)
[2021-08-25] MEDS: CHOLECALCIFEROL (VITAMIN D3) 5,000 UNIT TABLET GT SCH (09:47)
[2021-08-25] MEDS: DOCUSATE SODIUM 100 MG/10 ML UDC PO SCH (09:47)
[2021-08-25] MEDS: clonazePAM 0.5 MG TABLET GT SCH ×2 (09:48→22:27)
[2021-08-25] MEDS: MULTIVITAMINS TAB 1 TABLET GT SCH (09:48)
[2021-08-25] MEDS: ASCORBIC ACID 500 MG TABLET GT SCH (09:48)
[2021-08-25] MEDS: BISACODYL 10 MG/SUPPOSITORY RC SCH (09:48)
[2021-08-25] MEDS: SENNOSIDES 8.6 MG TABLET GT SCH ×2 (09:48→22:27)
[2021-08-25] MEDS: NACL 0.9% 1,000 ML IV SCH ×2 (09:49→22:28)
--- NOTE | 2021-08-25 09:50 | NUR ---
Scheduled medication given per order. Patient stable; resting comfortably in bed with no respiratory distress noted.
--- NOTE | 2021-08-25 12:03 | NUR ---
Scheduled medications given per order. Checked blood sugar: 97 mg/dl - no coverage required. Patient stable with no respiratory distress noted.
[2021-08-25 12:48] LABS: ERYTHROCYTE SEDIMENTATION RATE 92 MM/HR (0-15)
[2021-08-25 12:51] VITALS: BP_SYST 135
--- NOTE | 2021-08-25 13:57 | NUR ---
Patient stable; resting comfortably in bed Danna baeza and tech at bedside to do HIDA scan.
[2021-08-25 16:47] VITALS: BP_SYST 122
--- NOTE | 2021-08-25 16:53 | NUR ---
Checked blood sugar: 85 mg/dl - no coverage required. Patient stable with no respiratory distress noted and mother at bedside.
--- NOTE | 2021-08-25 17:46 | NUR ---
Scheduled medications given per order. Patient stable with no respiratory distress noted; Mom at bedside.
--- NOTE | 2021-08-25 18:17 | NUR ---
Patient stable throughout shift; resting comfortably in bed with no respiratory distress noted and Mom at bedside at this time.
--- NOTE | 2021-08-25 19:45 | NUR ---
Opening note Patient is resting on NOEMY mattress w/eyes closed. No distress, oxygen saturation is 100%, and nonlabored breathing on ventilator with settings as ordered. Patient has IVF infusing via left subclavian CL. GT feeding is running at 60 ml/hr. Escobar catheter drainage bag to gravity. Bed is locked in lowest position, side rails up and bed alarm on.
[2021-08-25 20:00] VITALS: BP_SYST 120
--- NOTE | 2021-08-25 22:28 | NUR ---
meds, IVF Scheduled meds given via G-tube, assessed residual and 100 ml noted and returned. IVF bag empty and hung new bag, infusing well, no sign of infiltration noted.
--- NOTE | 2021-08-25 22:45 | NUR ---
GT feeding GT feeding bottle empty, hung new bottle and new tubing. Running at 60 ml/hr.
[2021-08-25] MEDS: PEG 400/HYPROMELLOSE/GLYCERIN 15 ML DROPS OP PRN (22:47)
[2021-08-26 00:16] VITALS: BP_SYST 131
[2021-08-26] MEDS: PIPERACILLIN/TAZOBACTAM 3.375 GM/ D5W 50 ML IV SCH ×10 (00:52→23:36)
[2021-08-26] MEDS: traMADol HCL HCL 50 MG TABLET (ULTRAM) PO SCH ×5 (00:52→23:36)
--- NOTE | 2021-08-26 00:52 | NUR ---
meds Administered Zosyn as ordered, infusing well, no s/x of infiltration.
--- NOTE | 2021-08-26 02:30 | NUR ---
resting eyes closed Patient resting in bed w/eyes closed, no distress, nonlabored breathing. Safety precautions maintained.
[2021-08-26] MEDS: IPRATROPIUM BROM 0.5 MG/2.5 ML VIAL.NEB (ATROVENT) INH SCH ×6 (04:01→23:15)
[2021-08-26] MEDS: NACL 0.9% 1,000 ML IV SCH ×3 (05:30→23:36)
[2021-08-26] MEDS: LANSOPRAZOLE 30 MG CAPSULE.DR GT SCH (06:22)
--- NOTE | 2021-08-26 06:35 | NUR ---
WOUND CARE, DRESSING CHANGE
--- NOTE | 2021-08-26 08:00 | NUR ---
NOTES PATIENT LETHARGIC AND OBTUNDED. VITALS SIGNS STABLE.AFEBRILE. ON MECHANICAL VENTILATOR OF AC 14, TV 400 FIO2 30% AND PEEP OF 5. LUNGS BILATERALLY WITH CRACKLES AND DIMINISHED AT THE BASES. HAS G TUBE OF GLUCERNA 1.5 AT 60CC/HR INFUSING ON WELL. HAS DAMON CATHETER DRAINING WELL WITH CLEAR YELLOW URINE. HAS CENTRAL LINE 3 LUMEN LEFT UPPER CHEST WITH NORMAL SALINE AT 100CC/HR INFUSING ON WELL. CALL LIGHTS WITHIN REACH. BED LOW POSITION, ALARMED AND LOCKED. WILL CONTINUE TO MONITOR
[2021-08-26 08:48] VITALS: BP_SYST 130
[2021-08-26] MEDS: MULTIVITAMINS TAB 1 TABLET GT SCH (09:03)
[2021-08-26] MEDS: BISACODYL 10 MG/SUPPOSITORY RC SCH (09:03)
[2021-08-26] MEDS: CHOLECALCIFEROL (VITAMIN D3) 5,000 UNIT TABLET GT SCH (09:03)
[2021-08-26] MEDS: DOCUSATE SODIUM 100 MG/10 ML UDC PO SCH (09:03)
[2021-08-26] MEDS: clonazePAM 0.5 MG TABLET GT SCH ×2 (09:03→20:54)
[2021-08-26] MEDS: ASCORBIC ACID 500 MG TABLET GT SCH (09:04)
[2021-08-26] MEDS: SENNOSIDES 8.6 MG TABLET GT SCH ×2 (09:04→20:54)
[2021-08-26] MEDS: CHLORHEXIDINE GLUC 0.12% 15 ML MOUTHWASH UDC MM SCH ×2 (09:05→20:54)
--- NOTE | 2021-08-26 09:30 | NUR ---
MEDS DUE GIVEN AT THIS TIME.
--- NOTE | 2021-08-26 11:00 | NUR ---
GENE IVY AND STUDENT NURSE GAMAL. TURN THE PATIENT. DRESSING CHANGED HAD A LARGE BOWEL MOVEMENT NOTED. SARKIS CARE AND HYGIENE CARE DONE.
[2021-08-26 12:00] VITALS: BP_SYST 128
--- NOTE | 2021-08-26 14:04 | NUR ---
Dietitian Recommendations - Continue G-tube feeding of Glucerna 1.2 @ 60 ml/h (provides 1728 kcals, 86 gm protein, 1159 ml free water) - FWF 150 ml q6h to meet basic hydration need - Manav BID and Prosource TID * TF @ goal + Manav, Prosource and FWF would provide 2068 kcals/d, 136 gm pro/d, 1759 ml free water to meet 100% of upper end of estimated calorie needs, 115% of upper end of estimated protein need and 100% of lower end of estimated fluid need - Continue multivitamin and vitamin C - Suggest zinc sulfate x2 weeks, >2 weeks may result in inhibition of Cu absorption Please see nutrition assessment for details PS, RD
--- NOTE | 2021-08-26 15:00 | NUR ---
BRIAN SARKAR AND SISTER AND MOM ARE THE BEDSIDE. SARKIS CARE AND HYGIENE CARE DONE. HAD LARGE BOWEL MOVEMENT NOTED. X2. DRESSING CHANGED ON THE RT AND LEFT BUTTOCKS AREA AND SACRAL AREA.
[2021-08-26 16:54] VITALS: BP_SYST 129
--- NOTE | 2021-08-26 17:22 | NUR ---
LATEST BS 103 MG/DL. NO COVERAGE GIVEN.
--- NOTE | 2021-08-26 18:47 | NUR ---
MOM CAME HELPED THE PATIENT TO BE REPOSITIONED IN SUPINE POSITION. ENDORSED TO INCOMING NURSE
--- NOTE | 2021-08-26 19:15 | NUR ---
OPENING NOTE PATIENT IN BED, EYES CLOSED, APPEARS TO BE ASLEEP. NO S/S OF ACUTE DISTRESS. BREATHING EVEN AND UNLABORED. IVF AND TUBE FEEDING INFUSING WELL. IV SITE IS PATENT, NO SIGNS OF INFILTRATION OR INFECTION NOTED. DAMON ATTACHED, SECURED, AND DRAINING BY GRAVITY. SKIN WARM AND DRY TO TOUCH, NO SIGNS OF HYPOGLYCEMIA NOTED. FALL AND SAFETY PRECAUTIONS IN PLACE. ALL NEEDS MET AT THIS TIME. WILL CONTINUE TO MONITOR.
[2021-08-26 20:00] VITALS: BP_SYST 121
[2021-08-27] VITALS: BP_SYST 125
--- NOTE | 2021-08-27 00:20 | NUR ---
NPO PATIENT PLACED NPO AT THIS TIME FOR CT OF AB/PELVIS IN AM.
[2021-08-27] MEDS: IPRATROPIUM BROM 0.5 MG/2.5 ML VIAL.NEB (ATROVENT) INH SCH ×5 (03:05→21:58)
[2021-08-27] MEDS: PIPERACILLIN/TAZOBACTAM 3.375 GM/ D5W 50 ML IV SCH ×8 (06:04→23:47)
[2021-08-27] MEDS: LANSOPRAZOLE 30 MG CAPSULE.DR GT SCH (06:04)
[2021-08-27] MEDS: traMADol HCL HCL 50 MG TABLET (ULTRAM) PO SCH ×4 (06:04→23:48)
--- NOTE | 2021-08-27 06:24 | NUR ---
CLOSING NOTE PATIENT IN BED, EYES CLOSED. NO S/S OF ACUTE DISTRESS NOTED. BREATHING EVEN AND UNLABORED. HOB RAISED. VENT TO TRACH ATTACHED AND OPERATING. IVF INFUSING WELL, IV SITE PATENT, NO SIGNS OF INFILTRATION OR INFECTION NOTED. DAMON ATTACHED, SECURED, AND DRAINING BY GRAVITY. SKIN WARM AND DRY TO TOUCH, NO SIGNS OF HYPOGLYCEMIA, LAST BS WAS WNL. ALL NEEDS MET THROUGHOUT SHIFT. FALL, SAFETY, SEIZURE PRECAUTIONS MAINTAINED THROUGHOUT SHIFT. WILL CONTINUE TO MONITOR UNTIL PATIENT CARE IS ENDORSED TO ONCOMING DAYSHIFT NURSE.
--- NOTE | 2021-08-27 07:11 | NUR ---
CALLED DR DUPREE TRIED CALLING AT [phone]. WENT TO [facility], LEFT A MESSAGE TO CALL BACK BEKA AT [phone].
[2021-08-27] MEDS ORDERED: D5/0.45 NS 1,000 ML IV ONE (07:30)
--- NOTE | 2021-08-27 08:00 | NUR ---
NOTES PATIENT NON VERBAL. STILL ON VENTILATOR WITH AC 14, TV 400, FIO2 OF 30%. PEEP OF 5. STILL CENTRAL LINE 3 LUMEN WITH NS ON IT AT 100CC/HR INFUSING ON WELL. PATIENT CONTRACTED. HAS G TUBE OF GLUCERNA 1.5 AT 60CC/HR INFUSING ON WELL. HAS DAMON CATHETER DRAINING CLEAR YELLOW URINE. WILL CONTINUE TO MONITOR
[2021-08-27 08:30] VITALS: BP_SYST 125
[2021-08-27 08:38] VITALS: BP_SYST 118
--- NOTE | 2021-08-27 09:00 | NUR ---
JOSE CORTEZ OF DR VASQUEZ CAME INFORMED THAT CT SCAN OF ABDOMEN/PELVES IS WITHOUT CONTRAST.
--- NOTE | 2021-08-27 09:29 | NUR ---
patient went to ct scan of abdomen without contrast.
--- NOTE | 2021-08-27 09:35 | NUR ---
TRANSPORTED PATIENT TO CT VIA AMBU BAG WITH 15LPM. SPO2 100%, HR 98. NO RESPIRATORY DISTRESS NOTED
[2021-08-27] MEDS: ASCORBIC ACID 500 MG TABLET GT SCH (09:53)
[2021-08-27] MEDS: DOCUSATE SODIUM 100 MG/10 ML UDC PO SCH (09:53)
[2021-08-27] MEDS: MULTIVITAMINS TAB 1 TABLET GT SCH (09:53)
[2021-08-27] MEDS: BISACODYL 10 MG/SUPPOSITORY RC SCH (09:54)
[2021-08-27] MEDS: CHOLECALCIFEROL (VITAMIN D3) 5,000 UNIT TABLET GT SCH (09:54)
[2021-08-27] MEDS: SENNOSIDES 8.6 MG TABLET GT SCH ×2 (09:54→20:43)
[2021-08-27] MEDS: clonazePAM 0.5 MG TABLET GT SCH ×2 (09:54→20:43)
[2021-08-27] MEDS: CHLORHEXIDINE GLUC 0.12% 15 ML MOUTHWASH UDC MM SCH ×2 (09:55→20:45)
[2021-08-27] MEDS: NACL 0.9% 1,000 ML IV SCH ×2 (11:30→20:44)
[2021-08-27 12:00] VITALS: BP_SYST 120
--- NOTE | 2021-08-27 12:52 | NUR ---
LATEST BS 97 MG/DL/ NO COVERAGE GIVEN HAD BM LARGE ONE SARKIS AND HYGIENE CARE DONE.
--- NOTE | 2021-08-27 13:30 | NUR ---
DR VASQUEZ GROUP CALLED FOR RESULT OF CT SCAN OF ABDOMEN. AWAITING TO CALL BACK.
--- NOTE | 2021-08-27 14:00 | NUR ---
HAD BOWEL MOVEMENT LARGE SOFT BROWN STOOL.
[2021-08-27 16:00] VITALS: BP_SYST 124
--- NOTE | 2021-08-27 16:16 | NUR ---
DRESSING CHANGED LEFT KNEE, RT AND LEFT BUTTOCKS AND SACRAL/COCCYGEAL AREAS.
--- NOTE | 2021-08-27 16:26 | NUR ---
DR VASQUEZ CALLED INFORMED GENE ORNELAS TO CONTINUE REMIND THE DR VASQUEZ FOR TO SEE THE PATIENT. INFORMED THE RESULT OF THE C T SCAN. DR HENRY MADE AWARE.
--- NOTE | 2021-08-27 18:19 | NUR ---
LATEST BS 109 MG/DL. NO COVERAGE GIVEN. FEEDING PLACE ON HOLD RESIDUAL 100CC.
--- NOTE | 2021-08-27 19:15 | NUR ---
OPENING NOTE REPORT RECEIVED FROM DAYSHIFT NURSE. PATIENT RECEIVED LYING IN BED, EYES CLOSED, NO SIGNS OF DISCOMFORT NOTED. CHEST RISE AND FALL EVEN BILATERALLY, HOB RAISED, VENT TO TRACH ATTACHED AND OPERATING, SPO2 AT 100, PATIENT TOLERATING WELL. IVF AND TUBE FEEDING INFUSING WELL, IV SITE PATENT, NO SIGNS OF INFILTRATION OR INFECTION NOTED. DAMON ATTACHED SECURED AND DRAINING BY GRAVITY. BED ALARM ON. SAFETY AND FALL PRECAUTIONS IN PLACE. WILL CONTINUE TO MONITOR.
[2021-08-27 20:00] VITALS: BP_SYST 112
[2021-08-28] VITALS: BP_SYST 122
[2021-08-28] MEDS: ACETAMINOPHEN 650 MG/20.3 ML UDC GT PRN ×2 (01:41→23:42)
[2021-08-28] MEDS: IPRATROPIUM BROM 0.5 MG/2.5 ML VIAL.NEB (ATROVENT) INH SCH ×5 (03:12→23:15)
[2021-08-28] MEDS: traMADol HCL HCL 50 MG TABLET (ULTRAM) PO SCH ×4 (06:05→23:42)
[2021-08-28] MEDS: LANSOPRAZOLE 30 MG CAPSULE.DR GT SCH (06:05)
[2021-08-28] MEDS: PIPERACILLIN/TAZOBACTAM 3.375 GM/ D5W 50 ML IV SCH ×2 (06:05)
--- NOTE | 2021-08-28 06:36 | NUR ---
CLOSING NOTE PATIENT IN BED, RESTING, NO S/S OF ACUTE DISTRESS NOTED. BREATHING IS EVEN AND UNLABORED, HOB RAISED, TRACH TO VENT ATTACHED AND OPERATING, PATIENT TOLERATING WELL ,SPO2 AT 100. IVF AND TUBE FEEDING INFUSING WELL, IV SITE PATENT, NO SIGNS OF INFILTRATION OR INFECTION NOTED. SKIN WARM AND DRY TO TOUCH, NO SIGNS OF HYPOGLYCEMIA NOTED. DAMON ATTACHED, SECURED AND DRAINING BY GRAVITY. ALL NEEDS MET THROUGHOUT SHIFT. FALL AND SAFETY PRECAUTIONS MAINTAINED THROUGHOUT SHIFT. WILL CONTINUE TO MONITOR UNTIL PATIENT CARE IS ENDORSED TO ONCOMING DAYSHIFT NURSE.
[2021-08-28 07:03] LABS: BASOPHILS # (AUTO) 0.1 K/uL (0.0-0.2); EOSINOPHILS # (AUTO) 0.2 K/uL (0.0-0.4); EOSINOPHILS % (AUTO) 2.1 % (0.0-4.0); HEMATOCRIT 32.6 % (36-54); HEMOGLOBIN 10.7 g/dL (14.0-18.0); LYMPHOCYTES # (AUTO) 2.3 K/uL (1.0-5.5); LYMPHOCYTES % (AUTO) 30.4 % (20.5-51.5); MEAN CORPUSCULAR HEMOGLOBIN 29 pg (27-31); MEAN CORPUSCULAR HGB CONC 33 % (32-36); MEAN CORPUSCULAR VOLUME 89 fL (79.0-98.0); MONOCYTES # (AUTO) 0.7 K/uL (0.0-1.0); MONOCYTES % (AUTO) 9.7 % (1.7-9.3); NEUTROPHILS # (AUTO) 4.3 K/uL (1.8-7.7); NEUTROPHILS % (AUTO) 56.8 % (40.0-70.0); PLATELET COUNT (AUTO) 323 K/uL (130-430); RED BLOOD CELL COUNT(AUTO) 3.67 MIL/uL (4.2-6.2); RED CELL DISTRIBUTION WIDTH 16.8 % (9.0-15.0); WHITE BLOOD COUNT (AUTO) 7.5 K/uL (4.8-10.8)
[2021-08-28 07:17] LABS: ALBUMIN 2.6 g/dL (3.4-4.8); CREATININE 0.48 mg/dL (0.55-1.30); TOTAL BILIRUBIN 0.2 mg/dL (0.0-1.0)
--- NOTE | 2021-08-28 07:51 | NUR ---
RN OPENING NOTE REPORT WAS ENDORSED BY NIGHT NURSE. PATIENT APPEARS TO BE RESTING IN BED, BOTH EYES ARE CLOSED NO SIGNS OF ANY DISTRESS. PATIENT HAS ALL SAFETY PRECAUTIONS IN PLACE. NO OTHER NEEDS AT THIS TIME.
[2021-08-28 07:53] VITALS: BP_SYST 121
[2021-08-28] MEDS: NACL 0.9% 1,000 ML IV SCH ×2 (09:08→17:33)
[2021-08-28] MEDS: SENNOSIDES 8.6 MG TABLET GT SCH ×2 (09:09→20:59)
[2021-08-28] MEDS: CHOLECALCIFEROL (VITAMIN D3) 5,000 UNIT TABLET GT SCH (09:09)
[2021-08-28] MEDS: BISACODYL 10 MG/SUPPOSITORY RC SCH (09:09)
[2021-08-28] MEDS: ASCORBIC ACID 500 MG TABLET GT SCH (09:09)
[2021-08-28] MEDS: MULTIVITAMINS TAB 1 TABLET GT SCH (09:09)
[2021-08-28] MEDS: clonazePAM 0.5 MG TABLET GT SCH ×2 (09:09→20:58)
[2021-08-28] MEDS: DOCUSATE SODIUM 100 MG/10 ML UDC PO SCH (09:09)
[2021-08-28] MEDS: CHLORHEXIDINE GLUC 0.12% 15 ML MOUTHWASH UDC MM SCH ×2 (09:11→20:59)
[2021-08-28] MEDS: PEG 400/HYPROMELLOSE/GLYCERIN 15 ML DROPS OP PRN (09:14)
--- NOTE | 2021-08-28 09:15 | NUR ---
MEDICATION PATIENTS SCHEDULED, PATIENT IS SITING UP IN BED, PATIENT IS TOLERATING TUBEFEEDING WELL WITH NO RESIDUAL. PATIENT PROVIDED WITH ORAL CARE AND SUCTION NEEDED. ALL SAFETY PRECAUTIONS IN PLACE. NO OTHER NEEDS AT THIS TIME.
[2021-08-28 12:00] VITALS: BP_SYST 136
--- NOTE | 2021-08-28 12:24 | NUR ---
medication/accu check patients scheduled medication given per order. accu check done, no coverage needed. patient has family at bedside. no signs of any distress,breathing is equal and non labored. patient has all safety precautions in place. no other needs at this time.
--- NOTE | 2021-08-28 14:30 | NUR ---
rn rounding patient is sitting in bed no signs of any distress, family is at bed side. egg and spice mixer provided incontinence care as needed. patient has all safety precautions in place. educated family photonics technician light for assistance. call light is with in reach of family. no other needs at this time.
--- NOTE | 2021-08-28 15:20 | NUR ---
WOUND EVALUATION: Late note for 08/28/2021 at 1520 secondary to patient care. Wound Consult received from Dr. Bacon. Thank you, Dr. Bacon, for the consult. Patient received in a Shun Bed with an IsoFlex NOEMY mattress with low air loss therapy initiated, awake, nonverbal, nonresponsive to verbal commands. Patient is unable to turn in bed independently. Lalo Score is a 12. Past Medical History: Cerebral Palsy, intellectual impairment, Chronic Respiratory Failure, ventilator dependent, Dysphagia with G-tube feeding, Seizure disorder, Spastic quadriplegia, Tracheostomy, Anoxic Encephalopathy, Chronic Encephalopathy, Severe Protein Malnutrition, Anemia (Microcytic, Iron Deficiency, and of Chronic Illness), recurrent sepsis, recurrent urinary tract infection, recurrent ventilator associated pneumonia, ventilator associated pneumonia with pleural effusion, Acute on Chronic Encephalopathy, tracheostomy, pressure ulcers in buttocks and lower extremities, neurogenic bladder. Recent Labs: WBC 7.5, RBC 3.67, hemoglobin 10.7, hematocrit 32.6, ESR 92, BUN 20, creatinine 0.48, GFR 203, glucose 111, POC glucose 108, albumin 2.6, serum total protein 8.4. Microbiology: Blood culture results x2 negative. MRSA screen results negative. Urine culture results negative. Intrinsic factors that delay wound healing: Cerebral Palsy, Chronic Respiratory Failure, ventilator dependent, G-tube feeding, Quadriplegia, Chronic Encephalopathy, Severe Protein Malnutrition, Anemia (Microcytic, Iron Deficiency, and of Chronic Illness), Hypoalbuminemia. Extrinsic factors that delay wound healing: Immobility. Wound Assessment: 1. Left Buttock near Ischium: Stage IV pressure ulcer, present on admission. Wound bed has 70% yellow slough, 20% dull red tissue, 10% black slough. Mild odor, scant yellow drainage. Wound was staged as a Stage IV on a prior visit. Surrounding tissue has scar tissue. Undermining present from 7-4 o'clock (0.2 cm at 7 o'clock; 0.7 cm at 9 o'clock; 2.7 cm at 12 o'clock; 1.9 cm at 3 o'clock). Wound measures 5.0 cm x 4.0 cm x 2.0 cm. 2. Right Buttock near Ischium: Stage IV pressure ulcer, present on admission. Wound bed has 70% yellow slough, 15% dull red tissue, 15% black slough. Mild odor, scant yellow drainage. Wound was staged as a Stage IV on a prior visit. Surrounding tissue has scar tissue. 100% undermining present (2.1 cm at 12 o'clock; 0.6 cm at 3 o'clock; 0.5 cm at 6 o'clock; 2.5 cm at 9 o'clock). Wound measures 5.5 cm x 3.5 cm x 2.3 cm. 3. Sacral-Coccygeal area: Unstageable pressure ulcer, present on admission. Wound bed has 80% yellow tissue, 10% red tissue, 10% pink tissue. No odor, scant yellow drainage. Periwound intact. Surrounding tissue has scar tissue. Wound measures 2.1 cm x 2.0 cm. Recommend: Cleanse wounds with normal saline. Apply moisture barrier cream to sari-wounds. Apply Venelex ointment to wound beds. Pack tunneled areas of wounds then areas of depth with 1/2 inch iodoform packing strip. Cover with non-adhesive 4 x 4 foam dressing. Secure with transparent dressings. Perform wound care daily, and as needed for dressing soiling or dislodgment. 4. Left Anterior Medial Knee: Stage IV pressure ulcer, present on admission. Wound bed has 50% yellow slough, 40% pink tissue, 10% brown slough. No odor, scant yellow drainage. Periwound intact. Scar tissue from prior wounds present lateral and inferior to this site. Wound measures 2.4 cm x 3.5 cm. Recommend: Cleanse wound with normal saline. Apply moisture barrier cream to periwound. Apply Venelex ointment to wound bed. Cover's site with foam dressing. Perform site care daily, and as needed for soiling. Keep towel rolls and pillows in between bilateral knees and ankles at all times to provide protection to involved areas. 5. Right Medial Knee: Scar tissue from a prior wound of unknown etiology, present on admission. Recommend: Cover site with 4 x 4 foam dressing. Perform site care daily, and as needed for dressing soiling or dislodgment. Keep towel rolls and pillows in between bilateral knees and ankles at all times to provide protection to involved areas. 6. Left Distal Posterior Calf/Achilles area: Scar tissue from a pressure ulcer of prior unknown stage with brown, dry, scaly skin, present on admission. 7. Right Distal Posterior Calf/Achilles area: Scar tissue from a pressure ulcer of prior unknown stage with brown, dry, scaly skin, present on admission. 8. Left Heel: Blanchable redness, present on admission. 9. Left Heel: Blanchable redness, present on admission. Recommend: Cover sites with foam dressings for protection. Elevate, offload and float bilateral heels and Achilles areas with 1 pillow lengthwise under each extremity at all times. Do not allow heels to touch bed or other surfaces at any time. Also recommend: Reposition patient side to side only every 2 hours with one pillow underneath trunk and 1 pillow underneath pelvis. Facilitate turning by placing third pillow underneath left side for 2 hours then rotating with right side every 2 hours. Repeat every 2 hours. Off-load pressure areas with pillows for pressure re-distribution. Offload, elevate and float bilateral heels with one pillow lengthwise under each extremity at all times. Keep a pillow in between knees and ankles at all times. Perform skin care and monitor skin integrity Q shift. Use moisture barrier cream on buttocks and other moisture susceptible areas QID and as needed for soiling.
[2021-08-28] MEDS ORDERED: BALSAM PERU/CASTOR OIL 56.7 GM OINT...G. TP ONE (16:00)
[2021-08-28 16:50] VITALS: BP_SYST 131
--- NOTE | 2021-08-28 17:29 | NUR ---
INFORMED RN MARIANN THAT THE TELE MONITOR BATTERY IS AND NEEDS TO BE REPLACED
--- NOTE | 2021-08-28 17:45 | NUR ---
medication patients scheduled medication given per order. patient is sitting in bed, no signs of any distress, breathing is equal and non labored. patient has all safety precautions in place. patient's g tube changed with new tubing per order. oral care and suction provided as needed. wound care was done as ordered. no other needs at this time.
--- NOTE | 2021-08-28 18:26 | NUR ---
rn closing note patient is sitting in bed. no signs of any distress,breathing is equal and non labored. all safety precautions in place. patient is on telemonitor, Escobar catheter draining to gravity. patient has no other needs at this time.
[2021-08-28 21:14] VITALS: BP_SYST 166
[2021-08-28 21:16] VITALS: BP_SYST 166
[2021-08-29 01:21] VITALS: BP_SYST 119
[2021-08-29] MEDS: IPRATROPIUM BROM 0.5 MG/2.5 ML VIAL.NEB (ATROVENT) INH SCH ×6 (03:20→23:04)
[2021-08-29] MEDS: LANSOPRAZOLE 30 MG CAPSULE.DR GT SCH (06:28)
--- NOTE | 2021-08-29 07:55 | NUR ---
INITIAL ROUNDS Received pt with eyes open, withdraws to touch, on vent via trach, vent settings verified. No s/s resp distress, no s/s pain or discomfort. HOB elevated for aspiration precautions. IVF infusing well at ordered rate with no s/s infiltration to site. Glucerna infusing well via g-tube at ordered rate with no residual noted. Escobar draining to gravity with yellow urine. Noted dressing to left knee, pillow placed between knees for skin care. Noted dressings to sacral and both buttocks area. Pt repositioned with pillow support and heels off-loaded for skin care and comfort. Side rails up x3, bed alarm on and room close to nursing station for safety.
[2021-08-29 07:56] VITALS: BP_SYST 124
[2021-08-29 08:03] VITALS: BP_SYST 124
[2021-08-29] MEDS: BISACODYL 10 MG/SUPPOSITORY RC SCH (09:00)
--- NOTE | 2021-08-29 09:33 | NUR ---
Discharge Planning: DCP faxed pt referral to [facility] P#[phone] F#[phone] DCP to follow up Addendum: 08/29/21 at 1549 by Mariaa NAGY Late Entry: [facility] P#[phone] accept pt to Rm 47B DCP made ILEANA aware
[2021-08-29] MEDS: DOCUSATE SODIUM 100 MG/10 ML UDC PO SCH (09:46)
[2021-08-29] MEDS: clonazePAM 0.5 MG TABLET GT SCH ×2 (09:46→22:01)
[2021-08-29] MEDS: SENNOSIDES 8.6 MG TABLET GT SCH ×2 (09:46→22:01)
[2021-08-29] MEDS: CHOLECALCIFEROL (VITAMIN D3) 5,000 UNIT TABLET GT SCH (09:46)
[2021-08-29] MEDS: MULTIVITAMINS TAB 1 TABLET GT SCH (09:46)
[2021-08-29] MEDS: ASCORBIC ACID 500 MG TABLET GT SCH (09:46)
[2021-08-29] MEDS: NACL 0.9% 1,000 ML IV SCH ×3 (09:49→22:55)
[2021-08-29] MEDS: BALSAM PERU/CASTOR OIL 56.7 GM OINT...G. TP SCH (09:51)
[2021-08-29] MEDS: CHLORHEXIDINE GLUC 0.12% 15 ML MOUTHWASH UDC MM SCH ×2 (09:51→22:01)
[2021-08-29 12:00] VITALS: BP_SYST 120
[2021-08-29] MEDS: traMADol HCL HCL 50 MG TABLET (ULTRAM) PO SCH ×2 (12:26→17:23)
[2021-08-29 16:00] VITALS: BP_SYST 122
--- NOTE | 2021-08-29 17:20 | NUR ---
WOUND CARE-KNEE 1. Dressing to left knee removed, area cleansed with normal saline, moisture barrier cream applied to periwound, Venelex ointment applied to wound bed, covered with a foam dressing. Wound bed has 50% yellow tissue, 40% pink tissue and 10% brownish tissue, no odor, minimal drainage. Wound measures 2.4 cm x 3.5 cm. 2. Right knee cleansed with normal saline, noted dark pink scar tissue. Covered with a foam dressing. Pillow placed between knees for skin care.
--- NOTE | 2021-08-29 18:10 | NUR ---
WOUND CARE 1. Right Buttock dressing removed, area cleansed with normal saline, moisture barrier cream applied to periwound, Venelex ointment applied to wound bed, wound packed with 1/2 inch Iodoform strip and covered with a foam dressing. Wound bed had 70% yellow tissue, 155 pink tissue, 15% black tissue, slight odor, small amount of drainage. Wound measures 5.5 cm x 3.5 cm x2.3 cm. Undermining noted. 2. Left Buttock dressing removed, area cleansed with normal saline, moisture barrier cream applied to periwound, Venelex ointment applied to wound bed, wound packed with 1/2 inch Iodoform strip and covered with a foam dressing. Wound bed had 70% yellow tissue, 10% black tissue and 20% pink tissue, slight odor, minimal drainage. Wound measures 5.0 cm x 4.0 cm x2.0 cm. Undermining noted. 3. Sacrum dressing removed, area cleansed with normal saline, moisture barrier cream applied to periwound, Venelex ointment applied to wound bed and covered with a foam dressing. Wound bed has 80% yellow tissue, 20% pink tissue, no odor, no drainage, periwound intact. Wound measures 2.1 cm x 2.0 cm. Pt repositioned with pillow support, a pillow between his knees and heels off-loaded for skin care and comfort. Aspiration and safety precautions remain in place.
--- NOTE | 2021-08-29 19:45 | NUR ---
CLOSING NOTE Pt resting quietly with no s/s resp distress, no s/s pain or discomfort. IVF infusing well to left subclavian central line at ordered rate. Glucerna infusing well via g-tube at ordered rate. Escobar draining to gravity. Aspiration, skin and safety precautions remain in place.
[2021-08-29 20:01] VITALS: BP_SYST 123
[2021-08-30] VITALS (8 sets, daily range): BP systolic 94–149
[2021-08-30] MEDS: IPRATROPIUM BROM 0.5 MG/2.5 ML VIAL.NEB (ATROVENT) INH SCH ×5 (03:21→23:02)
[2021-08-30] MEDS: traMADol HCL HCL 50 MG TABLET (ULTRAM) PO SCH ×3 (06:00→18:00)
[2021-08-30 06:41] LABS: BASOPHILS # (AUTO) 0.1 K/uL (0.0-0.2); BASOPHILS % (AUTO) 1.3 % (0.0-2.0); EOSINOPHILS # (AUTO) 0.1 K/uL (0.0-0.4); EOSINOPHILS % (AUTO) 0.8 % (0.0-4.0); HEMATOCRIT 35.2 % (36-54); HEMOGLOBIN 11.6 g/dL (14.0-18.0); LYMPHOCYTES # (AUTO) 2.1 K/uL (1.0-5.5); LYMPHOCYTES % (AUTO) 21.9 % (20.5-51.5); MEAN CORPUSCULAR HEMOGLOBIN 29 pg (27-31); MEAN CORPUSCULAR HGB CONC 33 % (32-36); MONOCYTES # (AUTO) 0.6 K/uL (0.0-1.0); MONOCYTES % (AUTO) 6.4 % (1.7-9.3); NEUTROPHILS # (AUTO) 6.7 K/uL (1.8-7.7); NEUTROPHILS % (AUTO) 69.6 % (40.0-70.0); PLATELET COUNT (AUTO) 352 K/uL (130-430); RED BLOOD CELL COUNT(AUTO) 4.03 MIL/uL (4.2-6.2); RED CELL DISTRIBUTION WIDTH 16.8 % (9.0-15.0)
[2021-08-30 06:54] LABS: MEAN CORPUSCULAR VOLUME 88 fL (79.0-98.0); WHITE BLOOD COUNT (AUTO) 9.6 K/uL (4.8-10.8)
[2021-08-30 07:01] LABS: ALBUMIN 3.1 g/dL (3.4-4.8); CREATININE 0.45 mg/dL (0.55-1.30); PHOSPHORUS 3.5 mg/dL (2.7-4.5); POTASSIUM 4.2 mmol/L (3.5-5.1); TOTAL BILIRUBIN 0.3 mg/dL (0.0-1.0)
[2021-08-30] MEDS: CHLORHEXIDINE GLUC 0.12% 15 ML MOUTHWASH UDC MM SCH ×2 (10:41→21:06)
[2021-08-30] MEDS: DOCUSATE SODIUM 100 MG/10 ML UDC PO SCH (10:41)
[2021-08-30] MEDS: BISACODYL 10 MG/SUPPOSITORY RC SCH (10:42)
[2021-08-30] MEDS: MULTIVITAMINS TAB 1 TABLET GT SCH (10:42)
[2021-08-30] MEDS: BALSAM PERU/CASTOR OIL 56.7 GM OINT...G. TP SCH (10:42)
[2021-08-30] MEDS: ASCORBIC ACID 500 MG TABLET GT SCH (10:43)
[2021-08-30] MEDS: clonazePAM 0.5 MG TABLET GT SCH ×2 (10:43→20:03)
[2021-08-30] MEDS: SENNOSIDES 8.6 MG TABLET GT SCH ×2 (10:43→21:00)
[2021-08-30] MEDS: CHOLECALCIFEROL (VITAMIN D3) 5,000 UNIT TABLET GT SCH (10:43)
--- NOTE | 2021-08-30 12:00 | NUR ---
CM: DISP: 03 PT [facility] BE [facility]CHARG[id number], TRANSPORTATION ARRANGED WITH [facility] EST [id number], NURSE TOYIN FRANCES RN, NOTIFIED TO GET FINAL DISCHARGE ORDER WITH MED RECONCILIATION. PACKET ON THE FLOOR, NURSE WILL CALL FOR REPORT.
[2021-08-30] MEDS: NACL 0.9% 1,000 ML IV SCH ×2 (12:28→19:30)
--- NOTE | 2021-08-30 15:10 | NUR ---
NOTES: called [facility], [place] office, [phone], spoke to Myrna, the earliest is 7 pm miner pick. informed charge nurse Le and primary nurse Ute.
[2021-08-30] MEDS: LANSOPRAZOLE 30 MG CAPSULE.DR GT SCH (16:41)
[2021-08-30] MEDS ORDERED: METOPROLOL TARTRATE 25 MG TABLET GT ONE (16:45)
[2021-08-30] MEDS ORDERED: METOPROLOL TARTRATE 25 MG TABLET PO ONE (16:45)
--- NOTE | 2021-08-30 19:15 | NUR ---
OPENING NOTES Patient resting in bed - no s/s pain or distress noted. Patient mechanically ventilated. IV site patent - no s/ s redness, infection, or infiltration. Bed locked and in lowest position. Call light within reach - bed alarm on. Family at bedside. Preparing patient for discharge.
[2021-08-30] MEDS: ACETAMINOPHEN 650 MG/20.3 ML UDC GT PRN (20:02)
[2021-08-30] MEDS: METOPROLOL TARTRATE 25 MG TABLET GT SCH (20:02)
--- NOTE | 2021-08-30 20:40 | NUR ---
PATIENT HAS FEVER AT TIME OF DISCHARGE TEMP 100.7, HEART RATE 120 PRISON REFUSING - [facility] TOPOGRAPHY TECHNICIAN STATES WILL NOT ACCEPT TODAY. NOTIFIED DR. ESPINOSA ORDERS PROCALCITONIN, CBC, CMP
--- NOTE | 2021-08-30 21:11 | NUR ---
Temp check Went in to patients room to check on patients temp. Noted that oral temp was 98.7 and temporal temp is 99.0 Ice pack replaced to forehead with towel.
[2021-08-31 01:18] VITALS: BP_SYST 127
[2021-08-31] MEDS: NACL 0.9% 1,000 ML IV SCH ×2 (01:36→18:10)
[2021-08-31] MEDS: traMADol HCL HCL 50 MG TABLET (ULTRAM) PO SCH ×5 (03:26→18:11)
--- NOTE | 2021-08-31 03:26 | NUR ---
due to business of shift unable to give midnight ultram until this time. DUE TO BEING Q6H ULTRAM WILL HAVE TO HOLD NEXT DOSE DUE TO BEING SO CLOSE IN TIME. WILL ENDORSE TO CHANGE OF SHIFT NURSE.
[2021-08-31] MEDS: ACETAMINOPHEN 650 MG/20.3 ML UDC GT PRN ×2 (03:31→09:42)
[2021-08-31] MEDS: IPRATROPIUM BROM 0.5 MG/2.5 ML VIAL.NEB (ATROVENT) INH SCH ×6 (03:37→23:27)
--- NOTE | 2021-08-31 04:30 | NUR ---
Temp rechecked. Noted patients temp to be 102.9 with elevated heart rate ranging at 124. Patient was given tylenol and MD Bacon ordered labs to be drawn this morning: CBC, CMP, Procalcitonin. Addendum: 08/31/21 at 0650 by Tricia Guan LVN Patient had a bowel movement at this time. Wound dressing to bilateral buttocks changed due to soilage.
[2021-08-31 06:54] LABS: BASOPHILS # (AUTO) 0.1 K/uL (0.0-0.2); BASOPHILS % (AUTO) 0.9 % (0.0-2.0); EOSINOPHILS % (AUTO) 0.1 % (0.0-4.0); HEMATOCRIT 35.4 % (36-54); HEMOGLOBIN 11.6 g/dL (14.0-18.0); LYMPHOCYTES % (AUTO) 18.6 % (20.5-51.5); MEAN CORPUSCULAR HEMOGLOBIN 28 pg (27-31); MEAN CORPUSCULAR HGB CONC 33 % (32-36); MEAN CORPUSCULAR VOLUME 87 fL (79.0-98.0); MONOCYTES % (AUTO) 9.1 % (1.7-9.3); NEUTROPHILS # (AUTO) 7.8 K/uL (1.8-7.7); NEUTROPHILS % (AUTO) 71.3 % (40.0-70.0); PLATELET COUNT (AUTO) 332 K/uL (130-430); RED BLOOD CELL COUNT(AUTO) 4.08 MIL/uL (4.2-6.2); RED CELL DISTRIBUTION WIDTH 16.4 % (9.0-15.0)
--- NOTE | 2021-08-31 07:25 | NUR ---
RECEIVED PT FROM [facility] SHIFT RN ASSUMED ALL CARE. PT IS AA0X1 TO SELF, TRACH IN PLACE, NONVERBAL, UNABLE TO COMMUNICATED NEEDS OR FOLLOW COMMANDS. TELE MONITOR IN PLACE READING SINUS TACH HR 130. PT HAS TEMP 100.5F COOLING MEASURE IN PLACE. WILL MEDICATE PER MAY. TRACH TO VENT, SETTINGS AC VC: TV 400, RR 14, PEEP 5, FIO2 30%, O2 SAT 99%. ABDOMEN ROUND, NONTENDER, NONDISTENDED. BOWEL SOUNDS ACTIVE X4 QUADS. GTUBE IN PLACE WITH GLUERNA RUNNING AT 60ML/HOUR, SITE WNL, DRESSING CDI. ASPIRATION PRECAUTIONS IN PLACE. PT HAS SUBCLAVIAN PICC IN PLACE. SITE WNL, DRESSING CDI. PT WILL BE TURNED AND REPOSITIONED Q 2 HOURS. HEEL PROTECTORS PLACED FOR SKIN MAINTENANCE.
[2021-08-31] MEDS: LANSOPRAZOLE 30 MG CAPSULE.DR GT SCH (07:57)
[2021-08-31] MEDS: ASCORBIC ACID 500 MG TABLET GT SCH (09:42)
[2021-08-31] MEDS: DOCUSATE SODIUM 100 MG/10 ML UDC PO SCH (09:42)
[2021-08-31] MEDS: MULTIVITAMINS TAB 1 TABLET GT SCH (09:42)
[2021-08-31] MEDS: BISACODYL 10 MG/SUPPOSITORY RC SCH (09:42)
[2021-08-31] MEDS: clonazePAM 0.5 MG TABLET GT SCH ×2 (09:42→21:14)
[2021-08-31] MEDS: SENNOSIDES 8.6 MG TABLET GT SCH ×2 (09:43→21:15)
[2021-08-31] MEDS: METOPROLOL TARTRATE 25 MG TABLET GT SCH ×3 (09:43→21:15)
[2021-08-31] MEDS: CHOLECALCIFEROL (VITAMIN D3) 5,000 UNIT TABLET GT SCH (09:44)
[2021-08-31] MEDS: CHLORHEXIDINE GLUC 0.12% 15 ML MOUTHWASH UDC MM SCH ×2 (09:44→21:14)
[2021-08-31] MEDS: BALSAM PERU/CASTOR OIL 56.7 GM OINT...G. TP SCH (09:45)
--- NOTE | 2021-08-31 09:46 | NUR ---
TYLENOL 650MG GT PRN GIVEN FOR TEMP 100.8F. COOLING MEASURE IN PLACE. SCHEDULED MEDS GIVEN AND TOLERATED WELL. 40CC RESIDUAL. ASPIRATION PRECAUTIONS IN PLACE.
--- NOTE | 2021-08-31 10:35 | NUR ---
URINE CX OBTAINED AND TAKEN TO LAB.
[2021-08-31 11:46] VITALS: BP_SYST 129
[2021-08-31 12:07] LABS: BILIRUBIN,URINE NEGATIVE (NEGATIVE); BLOOD, URINE 1+ (NEGATIVE); COLOR,URINE YELLOW (YELLOW); GLUCOSE,URINE NEGATIVE (NEGATIVE); KETONES,URINE NEGATIVE (NEGATIVE); LEUKOCYTE ESTERASE ,URINE TRACE (NEGATIVE); NITRITE, URINE NEGATIVE (NEGATIVE); PROTEIN URINE 2+ (NEGATIVE)
[2021-08-31 12:08] LABS: CLARITY/URINE SLIGHTLY HAZY (CLEAR)
--- NOTE | 2021-08-31 12:09 | NUR ---
REPORTED TO DR. ESPINOSA PT HAS 100.5F TEMP AND HR SINUS TACH. RECEIVED ORDER FOR SPUTUM CULTURE. R/T MADE AWARE.
[2021-08-31 12:24] LABS: BACTERIA,URINE FEW /HPF (None Seen)
[2021-08-31] MEDS: PIPERACILLIN/TAZO 4.5GM/DEX-IS 100 ML IV SCH ×2 (14:09→21:14)
[2021-08-31 14:12] LABS: ALBUMIN 3.1 g/dL (3.4-4.8); CALCIUM 9.8 mg/dL (8.4-11.0); CREATININE 0.51 mg/dL (0.55-1.30); POTASSIUM 4.2 mmol/L (3.5-5.1); TOTAL BILIRUBIN 0.4 mg/dL (0.0-1.0)
[2021-08-31 15:40] VITALS: BP_SYST 128
--- NOTE | 2021-08-31 16:00 | NUR ---
PT HAD BM, PT WAS CHANGED AND WOUND CARE AND PERINEAL/DAMON CARE PREFORMED. PT TOLERATED ACTIVITY WELL.
--- NOTE | 2021-08-31 18:20 | NUR ---
RT REPORTS SPUTUM CX HAS BEEN COLLECTED.
--- NOTE | 2021-08-31 19:14 | NUR ---
ENDORSED ALL CARE TO CATA BOYCE. ALL QUESTIONS AND CONCERNS ADDRESSED.
--- NOTE | 2021-08-31 19:15 | NUR ---
OPENING NOTE REPORT RECEIVED FROM DAYSHIFT NURSE. PATIENT RECEIVED LYING IN BED, EYES CLOSED, NO S/S OF ACUTE DISTRESS NOTED. BREATHING EVEN AND UNLABORED. HOB RAISED, TRACH TO VENT ATTACHED AND OPERATING, PATIENT TOLERATING WELL. IVF INFUSING WELL, IV SITE PATENT, NO SIGNS OF INFILTRATION OR INFECTION NOTED. DAMON ATTACHED, SECURED, AND DRAINING BY GRAVITY. SKIN WARM AND DRY TO TOUCH. BED ALARM ON. BED IS LOCKED AND AT LOWEST POSITION. WILL CONTINUE TO MONITOR.
[2021-08-31 20:00] VITALS: BP_SYST 116
[2021-09-01] MEDS: traMADol HCL HCL 50 MG TABLET (ULTRAM) PO SCH ×5 (00:12→23:07)
[2021-09-01 00:57] VITALS: BP_SYST 125
[2021-09-01] MEDS: NACL 0.9% 1,000 ML IV SCH ×3 (01:30→18:29)
[2021-09-01] MEDS: IPRATROPIUM BROM 0.5 MG/2.5 ML VIAL.NEB (ATROVENT) INH SCH ×5 (03:04→20:09)
[2021-09-01] MEDS: LANSOPRAZOLE 30 MG CAPSULE.DR GT SCH (06:05)
[2021-09-01] MEDS: PIPERACILLIN/TAZO 4.5GM/DEX-IS 100 ML IV SCH ×3 (06:06→23:07)
[2021-09-01 08:00] VITALS: BP_SYST 109
--- NOTE | 2021-09-01 08:00 | NUR ---
INITIAL NOTES PATIENT IN NON VERBAL, NON AMBULATORY. PATIENT ON A VENT. SPO2 AT 100%. BREATHING IS EVEN AND NON LABORED. NO S/S OF RESPIRATORY DISTRESS. NO FACIAL GRIMACE NOTED. PATIENT HAS BEEN REPOSITIONED. HOB IS ELEVATED. GT FEEDING ON. SAFETY PRECAUTIONS IN PLACE AND BED ALARM ON.
[2021-09-01] MEDS: METOPROLOL TARTRATE 25 MG TABLET GT SCH ×3 (09:00→20:32)
[2021-09-01] MEDS: CHOLECALCIFEROL (VITAMIN D3) 5,000 UNIT TABLET GT SCH (09:41)
[2021-09-01] MEDS: MULTIVITAMINS TAB 1 TABLET GT SCH (09:41)
[2021-09-01] MEDS: SENNOSIDES 8.6 MG TABLET GT SCH ×2 (09:41→20:30)
[2021-09-01] MEDS: ASCORBIC ACID 500 MG TABLET GT SCH (09:41)
[2021-09-01] MEDS: DOCUSATE SODIUM 100 MG/10 ML UDC PO SCH (09:41)
[2021-09-01] MEDS: BISACODYL 10 MG/SUPPOSITORY RC SCH (09:41)
[2021-09-01] MEDS: clonazePAM 0.5 MG TABLET GT SCH ×2 (09:41→20:29)
[2021-09-01] MEDS: BALSAM PERU/CASTOR OIL 56.7 GM OINT...G. TP SCH (09:42)
[2021-09-01] MEDS: PEG 400/HYPROMELLOSE/GLYCERIN 15 ML DROPS OP PRN (09:43)
[2021-09-01] MEDS: CHLORHEXIDINE GLUC 0.12% 15 ML MOUTHWASH UDC MM SCH ×2 (09:44→20:29)
[2021-09-01 12:00] VITALS: BP_SYST 110
--- NOTE | 2021-09-01 12:00 | NUR ---
NOTES PATIENT HAS BEEN CLEANED AND REPOSITIONED. WOUND CARE DONE. PATIENT HAD SMALL BOWEL MOVEMENT, BLOODY. WILL CONTINUE TO MONITOR. GT FEEDING ON AND HOB ELEVATED. SAFETY PRECAUTIONS IN PLACE.
[2021-09-01 14:26] VITALS: BP_SYST 122
--- NOTE | 2021-09-01 14:30 | NUR ---
notes Patient has been cleaned and repositioned, patient continues to have blood in stool. Dr. Bacon made aware. safety precautions in place and call light within reach.
--- NOTE | 2021-09-01 15:21 | NUR ---
..CONSULTATION PAGED REASON FOR CONSULTATION:RECTAL BLEEDING WAS CONSULT CALLED?Y -PERSON WHO WAS NOTIFIED:DARIAN CONSULTING PHYSICIAN:MARISOL LI CEMENT MIXER DRIVER SPECIALTY:GI CEMENT MIXER DRIVER PHONE NUMBER:[phone] REQUESTING PHYSICIAN: JOSEFINA MUÑIZ
[2021-09-01 16:00] VITALS: BP_SYST 105
--- NOTE | 2021-09-01 18:50 | NUR ---
Closing Notes patient is resting, eyes closed. No s/s of respiratory distress noted. no facial grimace noted. breathing is even and non labored. Gt feeding on, HOB elevated. Safety precautions in place and call light within reach.
--- NOTE | 2021-09-01 19:15 | NUR ---
OPENING NOTE PATIENT IN BED, HOB RAISED, VENT TO TRACH ATTACHED AND OPERATING. NO S/S OF ACUTE DISTRESS NOTED. IVF AND TUBE FEEDING INFUSING WELL. DAMON ATTACHED, SECURED AND DRAINING BY GRAVITY. BED ALARM ON. BED IS LOCKED AND AT LOWEST POSITION. WILL CONTINUE TO MONITOR.
[2021-09-01 20:00] VITALS: BP_SYST 131
[2021-09-02] VITALS (7 sets, daily range): BP systolic 105–136
[2021-09-02] MEDS: IPRATROPIUM BROM 0.5 MG/2.5 ML VIAL.NEB (ATROVENT) INH SCH ×5 (01:14→19:27)
[2021-09-02] MEDS: LANSOPRAZOLE 30 MG CAPSULE.DR GT SCH (06:03)
[2021-09-02] MEDS: traMADol HCL HCL 50 MG TABLET (ULTRAM) PO SCH ×3 (06:03→18:55)
[2021-09-02] MEDS: PIPERACILLIN/TAZO 4.5GM/DEX-IS 100 ML IV SCH ×3 (06:03→21:28)
[2021-09-02] MEDS: NACL 0.9% 1,000 ML IV SCH ×2 (06:05→17:03)
--- NOTE | 2021-09-02 06:45 | NUR ---
CLOSING NOTE PATIENT IN BED, EYES CLOSED. NO S/S OF ACUTE DISTRESS NOTED. BREATHING IS EVEN AND UNLABORED. HOB RAISED, VENT TO TRACH ATTACHED AND OPERATING. IVF AND TUBE FEEDING INFUSING WELL. IV SITE PATENT, NO SIGNS OF INFILTRATION OR INFECTION NOTED. DAMON ATTACHED, SECURED, AND DRAINING BY GRAVITY. ALL NEEDS MET THROUGHOUT SHIFT. FALL AND SAFETY PRECAUTIONS MAINTAINED THROUGHOUT SHIFT. WILL CONTINUE TO MONITOR UNTIL PATIENT CARE IS ENDORSED TO ONCOMING DAYSHIFT NURSE.
[2021-09-02 07:46] LABS: BASOPHILS # (AUTO) 0.1 K/uL (0.0-0.2); BASOPHILS % (AUTO) 0.9 % (0.0-2.0); EOSINOPHILS # (AUTO) 0.2 K/uL (0.0-0.4); EOSINOPHILS % (AUTO) 2.8 % (0.0-4.0); HEMATOCRIT 29.1 % (36-54); HEMOGLOBIN 9.5 g/dL (14.0-18.0); LYMPHOCYTES # (AUTO) 1.9 K/uL (1.0-5.5); LYMPHOCYTES % (AUTO) 26.5 % (20.5-51.5); MEAN CORPUSCULAR HEMOGLOBIN 29 pg (27-31); MEAN CORPUSCULAR HGB CONC 33 % (32-36); MEAN CORPUSCULAR VOLUME 89 fL (79.0-98.0); MONOCYTES # (AUTO) 0.7 K/uL (0.0-1.0); MONOCYTES % (AUTO) 9.2 % (1.7-9.3); NEUTROPHILS # (AUTO) 4.4 K/uL (1.8-7.7); NEUTROPHILS % (AUTO) 60.6 % (40.0-70.0); PLATELET COUNT (AUTO) 247 K/uL (130-430); RED BLOOD CELL COUNT(AUTO) 3.29 MIL/uL (4.2-6.2); RED CELL DISTRIBUTION WIDTH 16.5 % (9.0-15.0); WHITE BLOOD COUNT (AUTO) 7.2 K/uL (4.8-10.8)
[2021-09-02 08:00] LABS: CALCIUM 8.4 mg/dL (8.4-11.0); CREATININE 0.48 mg/dL (0.55-1.30); POTASSIUM 4.2 mmol/L (3.5-5.1)
--- NOTE | 2021-09-02 08:00 | NUR ---
OPENING NOTES PATIENT NONAMBULATORY AND NONVERBAL. PATIENT ON A VENTILATORY, SPO2 99%. BREATHING IS EVEN AND NON LABORED. SO S/S OF RESPIRATORY DISTRESS NOTED. NO SOB. PATIENT SHOWS NO FACIAL GRIMACE. PATIENT IN A COMFORTABLE POSITION, HOB ELEVATED. GT FEEDING ON. SAFETY PRECAUTIONS IN PLACE AND CALL LIGHT WITHIN REACH.
[2021-09-02] MEDS: METOPROLOL TARTRATE 25 MG TABLET GT SCH ×3 (09:00→21:30)
[2021-09-02] MEDS: SENNOSIDES 8.6 MG TABLET GT SCH ×2 (09:22→21:28)
[2021-09-02] MEDS: clonazePAM 0.5 MG TABLET GT SCH ×2 (09:22→21:28)
[2021-09-02] MEDS: DOCUSATE SODIUM 100 MG/10 ML UDC PO SCH (09:22)
[2021-09-02] MEDS: BISACODYL 10 MG/SUPPOSITORY RC SCH (09:22)
[2021-09-02] MEDS: MULTIVITAMINS TAB 1 TABLET GT SCH (09:22)
[2021-09-02] MEDS: ASCORBIC ACID 500 MG TABLET GT SCH (09:22)
[2021-09-02] MEDS: CHOLECALCIFEROL (VITAMIN D3) 5,000 UNIT TABLET GT SCH (09:22)
[2021-09-02] MEDS: CHLORHEXIDINE GLUC 0.12% 15 ML MOUTHWASH UDC MM SCH ×2 (09:23→21:28)
[2021-09-02] MEDS: BALSAM PERU/CASTOR OIL 56.7 GM OINT...G. TP SCH (09:23)
[2021-09-02] MEDS ORDERED: GOLYTELY / COLYTE SOLUTION 4 LITERS GT ONE (17:30)
--- NOTE | 2021-09-02 19:15 | NUR ---
CLOSING NOTES PATIENT IS NON VERBAL, RESTING, EYES CLOSED. NO S/S OF DISTRESS. NO FACIAL GRIMACE NOTED AT THIS TIME. PATIENT'S BREATHING IS EVEN AND NON LABORED. GT FEEDING ON, HOB ELEVATED. TAP WATER ENEMA WAS ORDERED ,DID NOT GIVE DURING MY SHIFT, ENDORSED TO INCOMING NURSE. REPORT GIVEN TO INCOMING NURSE.
--- NOTE | 2021-09-02 19:15 | NUR ---
OPENING NOTE PATIENT IN BED EYES CLOSED. NO S/S OF ACUTE DISTRESS. BREATHING EVEN AND UNLABORED. HOB RAISED, VENT TO TRACH ATTACHED AND OPERATING. IVF INFUSING WELL, IV SITE PATENT, NO SIGNS OF INFILTRATION OR INFECTION NOTED. DAMON ATTACHED, SECURED AND DRAINING BY GRAVITY. GTUBE FEEDING INFUSING WELL. BED ALARM ON. BED IS LOCKED AND AT LOWEST POSITION. WILL CONTINUE TO MONITOR.
[2021-09-02] MEDS ORDERED: GOLYTELY / COLYTE SOLUTION 4 LITERS ONE (20:49)
[2021-09-03] VITALS: BP_SYST 138
[2021-09-03] MEDS: traMADol HCL HCL 50 MG TABLET (ULTRAM) PO SCH (00:16)
[2021-09-03] MEDS: NACL 0.9% 1,000 ML IV SCH ×2 (03:41→11:16)
[2021-09-03] MEDS: IPRATROPIUM BROM 0.5 MG/2.5 ML VIAL.NEB (ATROVENT) INH SCH ×4 (04:43→15:37)
[2021-09-03] MEDS: PIPERACILLIN/TAZO 4.5GM/DEX-IS 100 ML IV SCH (05:15)
[2021-09-03] MEDS: LANSOPRAZOLE 30 MG CAPSULE.DR GT SCH (06:14)
--- NOTE | 2021-09-03 06:31 | NUR ---
CLOSING NOTE PATIENT IN BED RESTING. NO S/S OF ACUTE DISTRESS. BREATHING EVEN AND UNLABORED. HOB RAISED, VENT TO TRACH ATTACHED AND OPERATING. IVF AND TUBE FEEDING INFUSING WELL, IV SITE PATENT, NO SIGNS OF INFILTRATION OR INFECTION NOTED. SKIN WARM AND DRY TO TOUCH. DAMON ATTACHED, SECURED AND DRAINING BY GRAVITY. ALL NEEDS MET THROUGHOUT SHIFT. FALL AND SAFETY PRECAUTIONS MAINTAINED. WILL CONTINUE TO MONITOR UNTIL PATIENT CARE IS ENDORSED TO ONCOMING DAYSHIFT NURSE.
--- NOTE | 2021-09-03 07:20 | NUR ---
Opening note Received SBAR from night RN. Patient in bed, respirations even, non labored, Trach settings as ordered. Bed in low and locked position call light within reach bed alarm on. Escobar draining by gravity. IVF's and Feeding tube running as ordered
[2021-09-03 07:46] LABS: PROTHROMBIN TIME 10.3 SECS (9.5-12.5)
[2021-09-03 08:00] VITALS: BP_SYST 117
--- NOTE | 2021-09-03 08:00 | NUR ---
MD DR ALAMO BEDSIDE EXAMINING PATIENT. PER STOP FEEDINGS UNTIL AFTER COLONOSCOPY TOMORROW, TAP WATER ENEMA TOMORROW AT 0600. STOPPED TUBE FEEDING
[2021-09-03 08:01] LABS: BASOPHILS # (AUTO) 0.1 K/uL (0.0-0.2); BASOPHILS % (AUTO) 0.9 % (0.0-2.0); EOSINOPHILS # (AUTO) 0.2 K/uL (0.0-0.4); EOSINOPHILS % (AUTO) 3.2 % (0.0-4.0); HEMATOCRIT 27.8 % (36-54); HEMOGLOBIN 9.2 g/dL (14.0-18.0); LYMPHOCYTES # (AUTO) 2.3 K/uL (1.0-5.5); MEAN CORPUSCULAR HEMOGLOBIN 29 pg (27-31); MEAN CORPUSCULAR HGB CONC 33 % (32-36); MEAN CORPUSCULAR VOLUME 88 fL (79.0-98.0); MONOCYTES # (AUTO) 0.6 K/uL (0.0-1.0); MONOCYTES % (AUTO) 8.5 % (1.7-9.3); NEUTROPHILS # (AUTO) 3.4 K/uL (1.8-7.7); NEUTROPHILS % (AUTO) 52.4 % (40.0-70.0); PLATELET COUNT (AUTO) 236 K/uL (130-430); RED BLOOD CELL COUNT(AUTO) 3.18 MIL/uL (4.2-6.2); RED CELL DISTRIBUTION WIDTH 16.1 % (9.0-15.0); WHITE BLOOD COUNT (AUTO) 6.5 K/uL (4.8-10.8)
[2021-09-03 08:24] LABS: ALBUMIN 2.3 g/dL (3.4-4.8); CALCIUM 8.3 mg/dL (8.4-11.0); CREATININE 0.44 mg/dL (0.55-1.30); POTASSIUM 4.1 mmol/L (3.5-5.1); TOTAL BILIRUBIN 0.2 mg/dL (0.0-1.0)
[2021-09-03] MEDS: BISACODYL 10 MG/SUPPOSITORY RC SCH (09:00)
--- NOTE | 2021-09-03 09:00 | NUR ---
NURSE NOTE PROVIDED PATIENT WITH BED BATH, CHANGED LINENS, REPOSITIONED, PROVIDED ORAL CARE.
[2021-09-03] MEDS: DOCUSATE SODIUM 100 MG/10 ML UDC PO SCH (09:07)
[2021-09-03] MEDS: MULTIVITAMINS TAB 1 TABLET GT SCH (09:08)
[2021-09-03] MEDS: SENNOSIDES 8.6 MG TABLET GT SCH ×2 (09:08→21:55)
[2021-09-03] MEDS: ASCORBIC ACID 500 MG TABLET GT SCH (09:08)
[2021-09-03] MEDS: clonazePAM 0.5 MG TABLET GT SCH ×2 (09:08→21:49)
[2021-09-03] MEDS: METOPROLOL TARTRATE 25 MG TABLET GT SCH ×3 (09:08→21:55)
[2021-09-03] MEDS: CHOLECALCIFEROL (VITAMIN D3) 5,000 UNIT TABLET GT SCH (09:08)
[2021-09-03] MEDS: BALSAM PERU/CASTOR OIL 56.7 GM OINT...G. TP SCH (09:09)
--- NOTE | 2021-09-03 09:30 | NUR ---
WOUND CARE SEE MST ASSESSMENT
[2021-09-03] MEDS: CHLORHEXIDINE GLUC 0.12% 15 ML MOUTHWASH UDC MM SCH ×2 (09:36→21:00)
--- NOTE | 2021-09-03 11:54 | NUR ---
oral care provided oral care, suctioned, patient tolerated well no signs of distress noted
[2021-09-03 12:47] VITALS: BP_SYST 115
--- NOTE | 2021-09-03 15:17 | NUR ---
PAGED PAGED ROB CESPEDES AT [phone] SPOKE WITH CHANDNI.
--- NOTE | 2021-09-03 16:23 | NUR ---
critical paged dr Thomas regarding critical sputum culture. second page
--- NOTE | 2021-09-03 16:36 | NUR ---
INFORMED INFORMED DR HAMILTON OF SPUTUM CULTURE RESULTS. NO NEW ORDERS
[2021-09-03 16:47] VITALS: BP_SYST 121
--- NOTE | 2021-09-03 17:16 | NUR ---
BS PAGED DR ESPINOSA REGARDING PATIENTS BS 78
--- NOTE | 2021-09-03 17:30 | NUR ---
informed Informed Dr Bacon, of BS 78, new orders received
[2021-09-03] MEDS: D5LR 1,000 ML IV SCH (17:31)
[2021-09-03] MEDS ORDERED: GOLYTELY / COLYTE SOLUTION 4 LITERS GT ONE (18:00)
--- NOTE | 2021-09-03 19:25 | NUR ---
Closing note Provided SBAR to night RN, patient in bed, vent settings as directed, respirations even, non labored, bed in low and locked position, call light within reach, bed alarm on. Endorsed Golytle to Rn and endorsed care to RN
[2021-09-03 21:53] VITALS: BP_SYST 128
[2021-09-04] MEDS: IPRATROPIUM BROM 0.5 MG/2.5 ML VIAL.NEB (ATROVENT) INH SCH ×7 (00:36→19:55)
[2021-09-04 00:54] VITALS: BP_SYST 136
[2021-09-04] MEDS: D5LR 1,000 ML IV SCH ×2 (03:35→14:42)
--- NOTE | 2021-09-04 04:00 | NUR ---
pt given Golytle at beginning of shift via gtube. pt tolerated well. pt had multple bms during shift
--- NOTE | 2021-09-04 05:32 | NUR ---
tapwater enema given in preparation for colonoscopy.
[2021-09-04] MEDS: LANSOPRAZOLE 30 MG CAPSULE.DR GT SCH (06:19)
[2021-09-04 07:23] LABS: PROTHROMBIN TIME 10.3 SECS (9.5-12.5)
[2021-09-04 07:35] LABS: CALCIUM 8.8 mg/dL (8.4-11.0); CREATININE 0.38 mg/dL (0.55-1.30); POTASSIUM 3.9 mmol/L (3.5-5.1)
[2021-09-04] MEDS ORDERED: fentaNYL CITRATE/PF 100 MCG/2 ML AMP ONE (07:41)
[2021-09-04] MEDS ORDERED: MIDAZOLAM HCL 5 MG/5 ML VIAL ONE (07:41)
[2021-09-04] MEDS ORDERED: SIMETHICONE 40 MG/0.6 ML ML ONE (07:41)
--- NOTE | 2021-09-04 07:41 | NUR ---
Received patient in bed resting comfortably, AAOX0. No s/sx of pain or discomfort. Respirations are non-labored mechanical ventilator support. Skin is clean, warm and dry to touch. IV access is patent, secure, no s/sx of redness or swelling observed. Bed is locked in lowest position, call light in reach. Nurse will continue care and monitor for changes in status.
[2021-09-04 07:43] LABS: BASOPHILS % (AUTO) 0.6 % (0.0-2.0); EOSINOPHILS # (AUTO) 0.2 K/uL (0.0-0.4); EOSINOPHILS % (AUTO) 2.9 % (0.0-4.0); HEMATOCRIT 28.3 % (36-54); HEMOGLOBIN 9.3 g/dL (14.0-18.0); LYMPHOCYTES # (AUTO) 1.4 K/uL (1.0-5.5); LYMPHOCYTES % (AUTO) 24.4 % (20.5-51.5); MEAN CORPUSCULAR HEMOGLOBIN 28 pg (27-31); MEAN CORPUSCULAR HGB CONC 33 % (32-36); MEAN CORPUSCULAR VOLUME 86 fL (79.0-98.0); MONOCYTES # (AUTO) 0.4 K/uL (0.0-1.0); MONOCYTES % (AUTO) 6.6 % (1.7-9.3); NEUTROPHILS # (AUTO) 3.8 K/uL (1.8-7.7); NEUTROPHILS % (AUTO) 65.5 % (40.0-70.0); PLATELET COUNT (AUTO) 266 K/uL (130-430); RED BLOOD CELL COUNT(AUTO) 3.28 MIL/uL (4.2-6.2); RED CELL DISTRIBUTION WIDTH 15.9 % (9.0-15.0); WHITE BLOOD COUNT (AUTO) 5.8 K/uL (4.8-10.8)
[2021-09-04 08:00] VITALS: BP_SYST 134
[2021-09-04] MEDS: clonazePAM 0.5 MG TABLET GT SCH ×2 (09:00→21:19)
[2021-09-04] MEDS: METOPROLOL TARTRATE 25 MG TABLET GT SCH ×3 (09:00→21:19)
[2021-09-04] MEDS: BALSAM PERU/CASTOR OIL 56.7 GM OINT...G. TP SCH (09:00)
[2021-09-04] MEDS: ASCORBIC ACID 500 MG TABLET GT SCH (09:00)
[2021-09-04] MEDS: CHLORHEXIDINE GLUC 0.12% 15 ML MOUTHWASH UDC MM SCH ×2 (09:00→21:23)
[2021-09-04] MEDS: MULTIVITAMINS TAB 1 TABLET GT SCH (09:00)
[2021-09-04] MEDS: BISACODYL 10 MG/SUPPOSITORY RC SCH (09:00)
[2021-09-04] MEDS: SENNOSIDES 8.6 MG TABLET GT SCH ×2 (09:00→21:19)
[2021-09-04] MEDS: DOCUSATE SODIUM 100 MG/10 ML UDC PO SCH (09:00)
[2021-09-04] MEDS: CHOLECALCIFEROL (VITAMIN D3) 5,000 UNIT TABLET GT SCH (09:00)
[2021-09-04 11:35] VITALS: BP_SYST 131
[2021-09-04 16:05] VITALS: BP_SYST 151
--- NOTE | 2021-09-04 16:28 | NUR ---
PATIENT UNDERGOING PROCEDURE, OFF TELE-MONITOR
--- NOTE | 2021-09-04 16:29 | NUR ---
Patient in bed resting comfortably. No s/sx of pain or discomfort. Respirations are non-labored mechanical ventilator support. Skin is clean, warm and dry to touch. IV access is patent, secure, no s/sx of redness or swelling observed. Bed is locked in lowest position, call light in reach. Nurse will continue care and monitor for changes in status.
--- NOTE | 2021-09-04 17:37 | NUR ---
[id number] ASSISTED WITH GI PROCEDURE.PT TOLERATED WELL. Addendum: 09/04/21 at 1738 by Judy Rocha RT Amended: Links added.
--- NOTE | 2021-09-04 18:29 | NUR ---
Patient in bed resting comfortably. No s/sx of pain or discomfort. Respirations are non-labored. Skin is clean, warm and dry to touch. IV access is patent, secure, no s/sx of redness or swelling observed. G-tube feeding resumed as ordered. Escobar patent, secured and draining by way of gravity. Bed is locked in lowest position, call light in reach. Nurse will endorse patient to conduit cleaner nurse for continued care.
[2021-09-04 20:00] VITALS: BP_SYST 152; BP_SYST 156
--- NOTE | 2021-09-04 20:00 | NUR ---
Received patient in bed resting comfortably, AOX0. No s/sx of pain or discomfort. Respirations are non-labored mechanical ventilator support TRACH. Skin is clean, warm and dry to touch. IV access is patent, secure, no s/sx of redness or swelling observed. tube feeding tolerated with no residual. pt inital temp is 99.8, will administer fever relief. Bed is locked in lowest position, call light in reach. Nurse will continue care and monitor for changes in status.
[2021-09-04] MEDS ORDERED: HYDROCORTISONE ACETATE 1 SUPP (ANUSOL HC) RC SCH (21:00)
[2021-09-04] MEDS: ACETAMINOPHEN 650 MG/20.3 ML UDC GT PRN (21:34)
[2021-09-05] MEDS: IPRATROPIUM BROM 0.5 MG/2.5 ML VIAL.NEB (ATROVENT) INH SCH ×6 (00:07→20:45)
[2021-09-05 00:57] VITALS: BP_SYST 157
[2021-09-05] MEDS: LANSOPRAZOLE 30 MG CAPSULE.DR GT SCH (05:28)
[2021-09-05 06:20] LABS: BASOPHILS # (AUTO) 0.1 K/uL (0.0-0.2); EOSINOPHILS # (AUTO) 0.1 K/uL (0.0-0.4); EOSINOPHILS % (AUTO) 2.1 % (0.0-4.0); HEMATOCRIT 29.1 % (36-54); HEMOGLOBIN 9.6 g/dL (14.0-18.0); LYMPHOCYTES # (AUTO) 1.7 K/uL (1.0-5.5); LYMPHOCYTES % (AUTO) 27.5 % (20.5-51.5); MEAN CORPUSCULAR HEMOGLOBIN 29 pg (27-31); MEAN CORPUSCULAR HGB CONC 33 % (32-36); MEAN CORPUSCULAR VOLUME 87 fL (79.0-98.0); MONOCYTES # (AUTO) 0.6 K/uL (0.0-1.0); MONOCYTES % (AUTO) 8.8 % (1.7-9.3); NEUTROPHILS # (AUTO) 3.8 K/uL (1.8-7.7); NEUTROPHILS % (AUTO) 60.6 % (40.0-70.0); PLATELET COUNT (AUTO) 302 K/uL (130-430); RED BLOOD CELL COUNT(AUTO) 3.36 MIL/uL (4.2-6.2); WHITE BLOOD COUNT (AUTO) 6.3 K/uL (4.8-10.8)
[2021-09-05 07:09] LABS: ALBUMIN 2.6 g/dL (3.4-4.8); CALCIUM 8.6 mg/dL (8.4-11.0); CREATININE 0.44 mg/dL (0.55-1.30); POTASSIUM 3.7 mmol/L (3.5-5.1); TOTAL BILIRUBIN 0.2 mg/dL (0.0-1.0)
[2021-09-05 08:00] VITALS: BP_SYST 162
[2021-09-05] MEDS: CHOLECALCIFEROL (VITAMIN D3) 5,000 UNIT TABLET GT SCH (08:36)
[2021-09-05] MEDS: clonazePAM 0.5 MG TABLET GT SCH (08:36)
[2021-09-05] MEDS: SENNOSIDES 8.6 MG TABLET GT SCH (08:36)
[2021-09-05] MEDS: DOCUSATE SODIUM 100 MG/10 ML UDC PO SCH (08:37)
[2021-09-05] MEDS: METOPROLOL TARTRATE 25 MG TABLET GT SCH ×2 (08:37→16:32)
[2021-09-05] MEDS: ASCORBIC ACID 500 MG TABLET GT SCH (08:37)
[2021-09-05] MEDS: MULTIVITAMINS TAB 1 TABLET GT SCH (08:37)
[2021-09-05] MEDS: CHLORHEXIDINE GLUC 0.12% 15 ML MOUTHWASH UDC MM SCH (08:38)
[2021-09-05] MEDS: BISACODYL 10 MG/SUPPOSITORY RC SCH (08:38)
[2021-09-05] MEDS: BALSAM PERU/CASTOR OIL 56.7 GM OINT...G. TP SCH (08:39)
[2021-09-05] MEDS: ACETAMINOPHEN 650 MG/20.3 ML UDC GT PRN (10:10)
[2021-09-05 10:18] VITALS: BP_SYST 162
[2021-09-05 11:41] VITALS: BP_SYST 129
--- NOTE | 2021-09-05 14:32 | NUR ---
Discharge Planning: DCP arranged transport with [facility] [phone] trip#[id number] to [facility] P#[phone] Rm 2A. DCP made CM aware and patient packet taken to nurse station. Addendum: 09/05/21 at 1454 by Mariaa Garcia DP [facility]#[phone] change Rm 32B.
[2021-09-05 15:49] VITALS: BP_SYST 159
[2021-09-05 16:03] VITALS: BP_SYST 159
--- NOTE | 2021-09-05 20:25 | NUR ---
AMBULANCE IS COMING IN 10 MINUTES I SPOKE WITH SONJA BLANCO
== END 2021-09-05 20:50 | DRG 720 ==
LOC: SED 10:59 → STU 13:15
PROVIDERS: ADMIT Internal Medicine; ATTEND Internal Medicine
PROC: 5A1955Z Respiratory Ventilation, Greater than 96 Consecutive Hours (ICD-10-PCS; principal; 2021-08-24)
PROC: 0DBE8ZZ Excision of Large Intestine, Via Natural or Artificial Opening Endoscopic (ICD-10-PCS; 2021-09-04)
DX: A41.2 Sepsis due to unspecified staphylococcus (principal); G82.50 Quadriplegia, unspecified; J15.9 Unspecified bacterial pneumonia; E43 Unspecified severe protein-calorie malnutrition; J96.10 Chronic respiratory failure, unspecified whether with hypoxia or hypercapnia; G93.1 Anoxic brain damage, not elsewhere classified; Z99.11 Dependence on respirator [ventilator] status; Z93.0 Tracheostomy status; I31.9 Disease of pericardium, unspecified; N39.0 Urinary tract infection, site not specified; Y95 Nosocomial condition; R13.10 Dysphagia, unspecified; N31.9 Neuromuscular dysfunction of bladder, unspecified; D50.9 Iron deficiency anemia, unspecified; G40.909 Epilepsy, unspecified, not intractable, without status epilepticus; K80.20 Calculus of gallbladder without cholecystitis without obstruction; D64.9 Anemia, unspecified; K56.41 Fecal impaction; K62.6 Ulcer of anus and rectum; K63.5 Polyp of colon; K64.8 Other hemorrhoids; N20.0 Calculus of kidney; Z20.822 Contact with and (suspected) exposure to COVID-19; Z93.1 Gastrostomy status; Z87.440 Personal history of urinary (tract) infections; Z74.01 Bed confinement status; Q90.9 Down syndrome, unspecified; Z68.22 Body mass index [BMI] 22.0-22.9, adult; Q43.8 Other specified congenital malformations of intestine
CPT/HCPCS: 36415; 45385; 71045; 74018; 76376; 76770; 78226; 80048; 80053; 80061; 81000; 82962; 83036; 83605; 83690; 83735; 84100; 84484; 85025; 85610-TC; 85651-TC; 85730-TC; 87040; 87070-TC; 87081; 87086; 87205-TC; 88305; 93005; 93306; 94002; 94003; 94640; 94760; 96374; 96375; 99291; A9537; G0378; J1815; J1956; J2250; J2543; J3010; J3370; J7060; J7613

== ENCOUNTER 2022-02-14 23:55 | Inpatient (IN) | payer MEDICAID ==
[~2022-02-14] VITALS: Ht 167.6 cm; Wt 72.6 kg
[~2022-02-14 23:55] MED LIST changes: -AMIN30LI2 PO; -ATROVENT; -CALC-823 GT; -CARB15DR OP; -DULR10 RC; -SENN8.8S13 GT; -TRAM50TA2 GT; -TYLL650 PO; -VITD2000 GT; -[UNRECOGNIZED DRUG - OTHER] GT
[2022-02-15] VITALS (14 sets, daily range): BP systolic 48–141
--- NOTE | 2022-02-15 | NUR ---
Placed in room 5 . Placed on cardiac exercise physiologist, blood pressure machine and pulse oximeter. To gown for exam. Side rails up. Report given to JARETH IVY(REG).
--- NOTE | 2022-02-15 00:20 | NUR ---
HAVEN Botello at bedside examining patient.
[2022-02-15 01:22] LABS: ANION GAP 2 (5-15); CALCIUM 9.9 mg/dL (8.4-11.0); CHLORIDE 94 mmol/L (98-107); CREATININE 0.55 mg/dL (0.55-1.30); GLUCOSE 220 mg/dL (70-99); UREA NITROGEN, BLOOD 21 mg/dL (8-21)
[2022-02-15 01:27] LABS: GFR AFRICAN AMERICAN 209 mL/min (>90)
[2022-02-15 01:29] LABS: BASOPHILS # (AUTO) 0.1 K/uL (0.0-0.2); BASOPHILS % (AUTO) 0.3 % (0.0-2.0); HEMATOCRIT 33.2 % (36-54); HEMOGLOBIN 10.6 g/dL (14.0-18.0); LYMPHOCYTES # (AUTO) 1.3 K/uL (1.0-5.5); LYMPHOCYTES % (AUTO) 6.8 % (20.5-51.5); MEAN CORPUSCULAR HEMOGLOBIN 29 pg (27-31); MEAN CORPUSCULAR HGB CONC 32 % (32-36); MEAN CORPUSCULAR VOLUME 91 fL (79.0-98.0); MONOCYTES # (AUTO) 0.9 K/uL (0.0-1.0); MONOCYTES % (AUTO) 4.6 % (1.7-9.3); NEUTROPHILS # (AUTO) 17.3 K/uL (1.8-7.7); NEUTROPHILS % (AUTO) 88.3 % (40.0-70.0); PLATELET COUNT (AUTO) 538 K/uL (130-430); PROTHROMBIN TIME 10.6 SECS (9.5-12.5); RED BLOOD CELL COUNT(AUTO) 3.65 MIL/uL (4.2-6.2); RED CELL DISTRIBUTION WIDTH 16.4 % (9.0-15.0); WHITE BLOOD COUNT (AUTO) 19.6 K/uL (4.8-10.8)
[2022-02-15 01:31] LABS: ALANINE AMINOTRANSFERASE 501 U/L (12-78); ALBUMIN 2.8 g/dL (3.4-4.8); ASPARTATE AMINOTRANSFERASE 413 U/L (10-37); TOTAL BILIRUBIN 1.5 mg/dL (0.0-1.0)
[2022-02-15] MEDS ORDERED: NACL 0.9% 2,000 ML IV ONE (02:00)
[2022-02-15] MEDS ORDERED: ACETAMINOPHEN 500 MG TABLET GT ONE (02:00)
[2022-02-15] MEDS ORDERED: PIPERACILLIN/TAZO 3.375 GM in NS 50 ML IV ONE (02:00)
[2022-02-15] MEDS ORDERED: VANCOMYCIN HCL 1,000 MG in NS 250 ML IV ONE (02:00)
--- NOTE | 2022-02-15 02:00 | NUR ---
Dr Flaherty spoke to Dr Bacon and discussing the POLST DNR comfort treatment.Dr Bacon ok to give antibiotic and fluids at this time per Dr Flaherty.
[2022-02-15] MEDS ORDERED: METO-442 GT (02:41)
[2022-02-15] MEDS ORDERED: L.RH1CAP GT (02:41)
[2022-02-15] MEDS ORDERED: INSU100V7 SUBCUT (02:41)
[2022-02-15] MEDS ORDERED: LANS30CA53 GT (02:41)
[2022-02-15] MEDS ORDERED: TRAM100T25 PO (02:41)
[2022-02-15] MEDS ORDERED: LACT10SO6 GT (02:41)
--- NOTE | 2022-02-15 02:41 | NUR ---
Medication reconciliation completed with information provided by [facility]. Any prior medication reconciliation on file was reviewed and corrected.
[2022-02-15] MEDS ORDERED: cefTRIAXone 1 GM VIAL IM ONE (03:00)
--- NOTE | 2022-02-15 04:00 | NUR ---
# 20 gauge angiocath placed to L AC. Use of asceptic technique. Opsite placed over site. Blood return noted. Blood for lab drawn from site. Flushed with 10 cc of normal saline. No evidence of infiltration noted.
--- NOTE | 2022-02-15 04:00 | NUR ---
PER JOSELINE PT IS COMFORT FOCUSED TREATMENT ONLY. DR TRAN DIRECTED CAGE/VAULT SUPERVISOR TO ADMIN FLUIDS AND ABX.
[2022-02-15] MEDS ORDERED: metroNIDAZOLE 500 mg/NS 100 ML IV ONE (05:00)
[2022-02-15] MEDS ORDERED: VANCOMYCIN HCL 1000 MG/VIAL IV ONE (05:03)
[2022-02-15] MEDS ORDERED: ALBUMIN HUMAN 25% 50 ML IV ONE (05:30)
[2022-02-15] MEDS ORDERED: HYDROCORTISONE SOD SUCC 100 MG/2 ML VIAL IVP ONE (05:30)
[2022-02-15] MEDS ORDERED: PIPERACILLIN/TAZOBACTAM 3.375 GM/VIAL (ZOSYN) IV ONE (05:32)
--- NOTE | 2022-02-15 05:40 | NUR ---
Admit bed requested Patient will be admitted to care of . Admitted to TELE unit. Diagnosis SEPSIS Inpatient (Yes or No) YES Observation (Yes or No) NO Orientation concerns or request close to nursing station (Yes or No) YES Covid Status PENDING On vent or bipap VENT Isolation requirements YES Needs a sitter NO From Home (Yes or if No enter name of facility) [facility] Requires Dialysis (Yes or No) NO Med Rec Completed (Yes of No) YES
[2022-02-15] MEDS: NACL 0.9% 1,000 ML IV SCH ×3 (05:45→18:30)
[2022-02-15] MEDS ORDERED: ACETAMINOPHEN 500 MG TABLET ONE (05:53)
--- NOTE | 2022-02-15 05:55 | NUR ---
PER DR ESPINOSA ADMINISTER ABX AND FLUIDS.
--- NOTE | 2022-02-15 06:30 | NUR ---
# 16 FR In and Out catheter with use of sterile technique. Immediate return of 50 ml OF DARK YELLOW urine noted. Urine sample collected and sent to lab. Patient unable to toilet self.
--- NOTE | 2022-02-15 06:42 | NUR ---
SPOKE WITH PT SISTER, FAMILY WANTS SELECTIVE TREATMENT SUCH ABX AND FLUIDS.
[2022-02-15 07:01] LABS: BILIRUBIN,URINE NEGATIVE (NEGATIVE); BLOOD, URINE 2+ (NEGATIVE); CLARITY/URINE SL CLOUDY (CLEAR); COLOR,URINE YELLOW (YELLOW); GLUCOSE,URINE NEGATIVE (NEGATIVE); KETONES,URINE NEGATIVE (NEGATIVE); LEUKOCYTE ESTERASE ,URINE NEGATIVE (NEGATIVE); NITRITE, URINE NEGATIVE (NEGATIVE); PROTEIN URINE 3+ (NEGATIVE)
--- NOTE | 2022-02-15 07:15 | NUR ---
REPORT RECEIVED AT BEDSIDE, CARE ASSUMED, PT ASSESSED.
--- NOTE | 2022-02-15 07:28 | NUR ---
MD AWARE OF PT B/P. PER NIGHT RN B/P HAS BEEN 50S SYSTOLIC. NS BOLUS X2 AND ALBUMIN NOW RUNNING
--- NOTE | 2022-02-15 07:30 | NUR ---
US AT BEDSIDE
--- NOTE | 2022-02-15 08:15 | NUR ---
ADMISSION: PATIENT IS ADMITTED TO ROOM 117B. LETHARGIC AND NONVERBAL. DNR AND COMFORT CARE ONLY. HR 166 AND BP IS 53/23. TRACH AND VENT 02 SAT 99%. PER BOILER ENGINEER, 1L NS WAS ALREADY BOLUS AND ALBUMIN WAS GIVEN. BP AND HR HAS BEEN IN LOW 50 SBP/30 SDP. IV TO THE TREASURE 20 GAUGE INTACT AND PATENT. GT TO LLQ. BED IN LOW AND LOCK POSITION. BED ALARM ON. CALL LIGHT WITHIN REACH.
--- NOTE | 2022-02-15 08:27 | NUR ---
Note alberto in EDM - 02/15/22 at 0829 by [id number] Patient will be admitted to care of [DR ESPINOSA]. Admitted to [] unit. Will go to room []. Belongings list completed. Complete and up to date summary report printed. SBAR report to be given at bedside with opportunity for questions.
--- NOTE | 2022-02-15 08:29 | NUR ---
Patient will be admitted to care of DR ESPINOSA. Admitted to TELE unit. Will go to room 117. Belongings list completed. Complete and up to date summary report printed. SBAR report to be given at bedside with opportunity for questions.
--- NOTE | 2022-02-15 08:30 | NUR ---
T/V RATE CHANGED: CALLED RT DUE TO 02 SAT BETWEEN 70%-80%. PREVIOUS VENT SETTING AC 14, VT 400, FIO2 50%, PEEP 5. CHANGED TO FIO2 100%. 02 SAT SUSTAINING IN LOW 80% AT THIS TIME.
--- NOTE | 2022-02-15 08:35 | NUR ---
INCREASED FIO2 TO 100% DUE TO PATIENT DESAT SPO2 84%.
--- NOTE | 2022-02-15 08:40 | NUR ---
LOW BP AND HIGH HR: SPOKE WITH DR ESPINOSA REGARDING HR 160'S AND TRENDING OF LOW BP 53/23. PER MD, PATIENT IS COMFORT CARE. MAY GIVE MS 2MG IVP Q2 HR AND TO BOLUS ADDITIONAL 2L OF NS.
[2022-02-15] MEDS ORDERED: NALOXONE HCL 0.4 MG/ML AMP (NARCAN) IVP PRN (08:45)
[2022-02-15] MEDS ORDERED: MORPHINE 2 MG/ML INJ. SYRINGE IVP PRN (08:45)
--- NOTE | 2022-02-15 08:45 | NUR ---
TRANSFERRED PATIENT TO 117A FROM ER 5. SPO2 100%, HR 170.
--- NOTE | 2022-02-15 09:00 | NUR ---
02 SAT WNL: 02 SAT 90%-93%. STILL ON FIO2 100%.
--- NOTE | 2022-02-15 10:00 | NUR ---
WOUND CARE EDIT CHARTING: R AND LEFT BUTTOCKS CLEANSE WITH NS, PACKED WITH STERILE GAUZE, AND COVERED WITH MEPILEX (FOAM). MEDIAL SACRAL CLEANSE WITH NS, PADDED DRY WITH STERILE GAUZE, AND COVERED WITH MEPILEX. LEFT ELBOW DTI COVERED WITH MEPILEX AND WRAP IT WITH GAUZE. LEFT KNEE CLEANSE WITH NS, PADDED DRY WITH STERILE GAUZE, COVERED WITH MEPILEX AND WRAP IT WITH GAUZE.
--- NOTE | 2022-02-15 10:00 | NUR ---
WOUND CARE: R AND LEFT BUTTOCKS CLEANSE WITH NS, PACKED WITH STERILE GAUZE, AND COVERED WITH MEPILEX (FOAM). MEDIAL SACRAL CLEANSE WITH NS, PADDED DRY WITH STERILE GAUZE, COVERED WITH MEPILEX AND WRAP IT WITH GAUZE. LEFT ELBOW DTI COVERED WITH MEPILEX. LEFT KNEE CLEANSE WITH NS, PADDED DRY WITH STERILE GAUZE, COVERED WITH MEPILEX AND WRAP IT WITH GAUZE. Addendum: 02/16/22 at 1004 by [facility] Garrett Zabala RN RN RICK LUCIO
[2022-02-15] MEDS ORDERED: NACL 0.9% 1,000 ML IV SCH ×2 (10:15→11:15)
[2022-02-15] MEDS ORDERED: NACL 0.9% 1,000 ML IV ONE (10:19)
[2022-02-15 10:39] LABS: BACTERIA,URINE MODERATE /HPF (None Seen)
--- NOTE | 2022-02-15 11:08 | NUR ---
MORPHINE: HR IS 160. DR ESPINOSA AT THE BEDSIDE. OK TO GIVE MORPHINE DUE TO HIGH HR POSSIBLY IN PAIN. MOTHER OK PAIN MEDICATION AND IS AWARE THAT IT MIGHT LOWER THE BP. SAMMI PALOMO TRANSLATED (CROATIAN).
[2022-02-15] MEDS ORDERED: DEXTROSE 50% JECT 50 ML DISP.SYRIN IVP PRN (11:15)
[2022-02-15] MEDS ORDERED: ALBUTEROL SULFATE 0.083% 2.5 MG/3 ML VIAL.NEB INH PRN (11:15)
[2022-02-15] MEDS ORDERED: PEG 400/HYPROMELLOSE/GLYCERIN 15 ML DROPS OP PRN (11:15)
[2022-02-15] MEDS ORDERED: INSULIN REGULAR, HUMAN 100 UNITS/ML, 3 ML VIAL (humuLIN R) SUBCUT PRN (11:15)
[2022-02-15] MEDS ORDERED: ACETAMINOPHEN 650 MG/20.3 ML UDC GT PRN ×2 (11:15→11:45)
--- NOTE | 2022-02-15 11:21 | NUR ---
DAMON INSERTION: FC INSERTION 16 FR DUE TO MULTI WOUND IN COCCYX AND INCONTINENT. TOLERATED WELL. CLEAR YELLOW URINE OUTPUT 20ML. UA C/S SEND TO LAB. Addendum: 02/15/22 at 1124 by [facility] Garrett Zabala RN RN URINE SUMAYA IN COLOR NOT CLEAR YELLOW
--- NOTE | 2022-02-15 11:30 | NUR ---
2L NS BOLUS DONE: MADE DR ESPINOSA AWARE THAT 2L NS BOLUS GIVEN. BP REMAINING IN THE 50'S SBP/ 30'S DBP, HR 150'S. NO NEW ORDER.
--- NOTE | 2022-02-15 11:39 | NUR ---
CONSULTATION PAGED/CALLED Reason for Consultation: [] SEPSIS Person Who was Notified: [] KAM Consulting Physician: [] DR JUARES Efficiency Clerk Specialty: [] ID Ordering Physician: [] DR ESIPNOSA
--- NOTE | 2022-02-15 11:42 | NUR ---
CONSULTATION PAGED/CALLED Reason for Consultation: [] RESP FAILURE Person Who was Notified: [] RESHMA Consulting Physician: [] DR GRAYSON Document Management Specialist Specialty: [] PULMO Ordering Physician: [] DR ESPINOSA
[2022-02-15] MEDS ORDERED: PIPERACILLIN/TAZOBACTAM 3.375 GM/DEX-IS 50 ML PIGGYBACK IV SCH (12:00)
--- NOTE | 2022-02-15 12:00 | NUR ---
WATER FLUSHED: 0 RESIDUAL. FREE WATER 100CC VIA GT. HOB <30. TOLERATED WELL.
[2022-02-15] MEDS: traMADol HCL HCL 50 MG TABLET (ULTRAM) PO SCH ×2 (14:58→19:00)
[2022-02-15] MEDS: PIPERACILLIN/TAZO 3.375/DEX-IS 50 ML IV SCH ×2 (14:59→19:00)
[2022-02-15] MEDS ORDERED: NON-FORMULARY MEDICATION (Amino Acids/Protein Hydrolys (Pro-Stat Liquid) 30 ML) GT SCH (15:00)
[2022-02-15] MEDS: IPRATROPIUM BROM 0.5 MG/2.5 ML VIAL.NEB (ATROVENT) INH SCH ×2 (15:44→23:10)
--- NOTE | 2022-02-15 16:00 | NUR ---
WOUND CARE AGAIN: CHANGED DRESSING DUE TO SOILED WITH FECES. RIGHT AND LEFT BUTTOCKS CLEANSE WITH NS, PACKED WITH STERILE GAUZE, AND COVERED WITH MEPILEX (FOAM). MEDIAL SACRAL CLEANSE WITH NS, PADDED DRY WITH STERILE GAUZE, AND COVERED WITH MEPILEX..
[2022-02-15] MEDS ORDERED: GLUCAGON,HUMAN RECOMBINANT 1 MG VIAL ONE (17:59)
[2022-02-15] MEDS ORDERED: DEXTROSE 50% JECT 50 ML DISP.SYRIN ONE (18:00)
[2022-02-15] MEDS: VANCOMYCIN HCL 1,250 MG in NS 250 ML IV SCH (18:00)
[2022-02-15] MEDS ORDERED: D5LR 500 ML IV ONE (18:15)
[2022-02-15] MEDS ORDERED: DEXTROSE 50% JECT 50 ML DISP.SYRIN IVP ONE (18:15)
[2022-02-15] MEDS ORDERED: GLUCAGON,HUMAN RECOMBINANT 1 MG VIAL IM ONE (18:15)
--- NOTE | 2022-02-15 18:20 | NUR ---
BS 57: SPOKE WITH DR. ESPINOSA REGARDING BLOOD SUGAR 57 AND BLOOD PRESSURE (50 SBP/30 DBP) AND HR 155-160'S REMAIN IN THE SAME RANGE EVEN WITH THE 2L BOLUS EARLIER AND NS AT 20CC/HR. PER OK TO GIVE GLUCAGON AND D50. NEW IVF ORDER D5LR AT 100CC/HR AND NS AT 100CC/HR. PICC LINE ORDERED FOR PLACEMENT DUE TO TREASURE IV INFILTRATED AND VERY HARD STICK. IV INSERTION ATTEMPTED BUT UNABLE TO REINSERT. PATIENT'S SISTER AT THE BEDSIDE AND WILL SIGN THE CONSENT FOR PICC LINE. Addendum: 02/16/22 at 1403 by [employer] Vj, CATA IVY LATE ENTRY EDIT: NS AT 200CC NOT 20CC.
[2022-02-15] MEDS: D5LR 1,000 ML IV SCH (18:30)
--- NOTE | 2022-02-15 19:00 | NUR ---
CLOSING NOTES: PATIENT IS RESTING IN BED QUIETLY. NO ADDITIONAL DISTRESS NOTED. BP 66/47 AND HR 156.
--- NOTE | 2022-02-15 19:00 | NUR ---
BS 57: 1820: GLUCAGON IM TO R DELTOID AND D50 IVP GIVEN DUE TO BS 57. 1830: BS 51, FEEDING STARTED-JEVITY 1.5 AT 30CC/HR WITH 100CC OF WATER FLUSHED. 1840: BS 57 1845: BS 70 1900: BS 75
[2022-02-15] MEDS ORDERED: LACTOBACILLUS RHAMNOSUS GG GT SCH (21:00)
[2022-02-15] MEDS: ACETAMINOPHEN 650 MG/20.3 ML UDC GT PRN (21:44)
[2022-02-15] MEDS: clonazePAM 0.5 MG TABLET GT SCH (21:44)
[2022-02-15] MEDS: LACTOBACILLUS RHAMNOSUS GG 1 CAP CAPSULE GT SCH (21:44)
[2022-02-15] MEDS: CHLORHEXIDINE GLUC 0.12% 15 ML MOUTHWASH UDC MM SCH (21:51)
--- NOTE | 2022-02-15 22:00 | NUR ---
GT Residual 300 GT feeding Jevity 1.5 held at this time. Will recheck in 1 hour.
--- NOTE | 2022-02-15 23:15 | NUR ---
Rounds Residual still >150ml. Will continue to hold feeding as ordered.
--- NOTE | 2022-02-16 00:30 | NUR ---
Sister Hugh called for update. Update pt's sister re BP 70's.
[2022-02-16 00:48] VITALS: BP_SYST 60
[2022-02-16] MEDS: PIPERACILLIN/TAZO 3.375/DEX-IS 50 ML IV SCH ×3 (01:00→13:36)
--- NOTE | 2022-02-16 01:14 | NUR ---
RON SOLOMON FOR ELEVATED TROPONIN TROPONIN [id number]
--- NOTE | 2022-02-16 02:10 | NUR ---
PICC line nurse at bedside.
[2022-02-16] MEDS: IPRATROPIUM BROM 0.5 MG/2.5 ML VIAL.NEB (ATROVENT) INH SCH ×3 (02:50→11:24)
[2022-02-16 04:30] VITALS: BP_SYST 55
--- NOTE | 2022-02-16 04:40 | NUR ---
Rounds/Pericare Pt obtunded, no changes in mechanical vent settings, O2 sat 94-98%. Bed bath provided. Minimal urine output from rodriguez catheter noted. Sacral dressing C/D/I. Pt repositioned.
[2022-02-16] MEDS: traMADol HCL HCL 50 MG TABLET (ULTRAM) PO SCH ×3 (05:14→11:28)
[2022-02-16] MEDS: NACL 0.9% 1,000 ML IV SCH (05:21)
[2022-02-16] MEDS: D5LR 1,000 ML IV SCH (05:28)
--- NOTE | 2022-02-16 05:30 | NUR ---
Family at bedside. BP 50/36 HR 140's, O2 sat 98% on mech vent.
[2022-02-16] MEDS: VANCOMYCIN HCL 1,250 MG in NS 250 ML IV SCH (05:55)
--- NOTE | 2022-02-16 06:09 | NUR ---
Closing notes/BS 104 Pt's BP 50's, HR 140's. Temp 98.4. No changes in mechanical vent settings. Family at bedside. BS checked 104. GT feeding running at 30cc/hr. HOB maintained elevated. Escobar catheter draining to gravity with minimal amount of dark yellow urine. Bed low, locked. Siderails up x4. To endorse to AM nurse.
--- NOTE | 2022-02-16 07:30 | NUR ---
OPENING NOTES: PATIENT IS OBTUNDED AND NONVERBAL. DNR AND COMFORT CARE ONLY. HR 140'S AND BP IS 53/27. TRACH AND VENT 02 SAT 98%ON AC 14, VT 400, FIO2 80%, PEEP 5. PICC LINE TO THE TOM 2 LUMEN AND IVF INFUSING. GT FEEDING INFUSING. HOB 30<. F/C DRAINING TO GRAVITY. BED IN LOW AND LOCK POSITION. BED ALARM ON. CALL LIGHT WITHIN REACH.
[2022-02-16 08:00] VITALS: BP_SYST 59
[2022-02-16 08:17] LABS: ALBUMIN 1.9 g/dL (3.4-4.8); CALCIUM 7.4 mg/dL (8.4-11.0); CREATININE 2.42 mg/dL (0.55-1.30); TOTAL BILIRUBIN 1.7 mg/dL (0.0-1.0)
[2022-02-16] MEDS ORDERED: ASCORBIC ACID 500 MG GT SCH (09:00)
[2022-02-16] MEDS ORDERED: MULTIVITAMINS TAB 1 TABLET GT SCH (09:00)
[2022-02-16] MEDS ORDERED: OMEPRAZOLE Non-Formulary 20 MG CAPSULE.DR GT SCH (09:00)
[2022-02-16] MEDS ORDERED: LANSOPRAZOLE 30 MG CAPSULE.DR GT SCH (09:00)
[2022-02-16] MEDS ORDERED: ASCORBIC ACID 500 MG TABLET GT SCH (09:00)
[2022-02-16] MEDS ORDERED: CHOLECALCIFEROL (VITAMIN D3) 5,000 UNIT TABLET GT SCH (09:00)
--- NOTE | 2022-02-16 09:00 | NUR ---
FEEDING RESIDUAL: TUBE FEEDING RESIDUAL 160ML. WILL HOLD FEEDING AT THIS TIME. HOB<30. Addendum: 02/16/22 at 1208 by Gemini Zabala RN RN EDIT: HOB 30<.
[2022-02-16] MEDS: LACTOBACILLUS RHAMNOSUS GG 1 CAP CAPSULE GT SCH (09:03)
[2022-02-16] MEDS: CHLORHEXIDINE GLUC 0.12% 15 ML MOUTHWASH UDC MM SCH (09:03)
[2022-02-16] MEDS: clonazePAM 0.5 MG TABLET GT SCH (09:04)
--- NOTE | 2022-02-16 10:00 | NUR ---
FEEDING RESIDUAL: TUBE FEEDING RESIDUAL 120 ML. HOLD FEEDING AT THIS TIME. HOB 30<.
--- NOTE | 2022-02-16 10:20 | NUR ---
RT NOTE: 1020 Attempted to draw ABG for baseline ABG as per Dr Combs's verbal order. Unable to obtain due to patient's HR in 130s and currently low BP.
--- NOTE | 2022-02-16 11:00 | NUR ---
FEEDING RESIDUAL: TUBE FEEDING RESIDUAL 100ML. WILL CONTINUE HOLD FEEDING AT THIS TIME. HOB 30<.
[2022-02-16] MEDS: ACETAMINOPHEN 650 MG/20.3 ML UDC GT PRN (11:28)
--- NOTE | 2022-02-16 11:43 | NUR ---
LAC ECCHYMOSIS: NOTED LAC ECCHYMOSIS REPORTED BY PATIENT'S MOTHER WHEN REMOVED THE GAUZE WRAP FROM THE LEFT AC/ELBOW. PICTURE TAKEN.
--- NOTE | 2022-02-16 11:45 | NUR ---
B ELBOW MEPILEX APPLIED.
[2022-02-16 12:00] VITALS: BP_SYST 62
--- NOTE | 2022-02-16 12:00 | NUR ---
HR 110'S
--- NOTE | 2022-02-16 12:00 | NUR ---
FEEDING RESIDUAL: TUBE FEEDING RESIDUAL 70 ML. WILL CONTINUE HOLD FEEDING AT THIS TIME. HOB 30<.
[2022-02-16 12:32] LABS: HEMATOCRIT 26.5 % (36-54); HEMOGLOBIN 7.8 g/dL (14.0-18.0); MEAN CORPUSCULAR HEMOGLOBIN 29 pg (27-31); MEAN CORPUSCULAR HGB CONC 30 % (32-36); MEAN CORPUSCULAR VOLUME 98 fL (79.0-98.0); PLATELET COUNT (AUTO) 110 K/uL (130-430); RED BLOOD CELL COUNT(AUTO) 2.71 MIL/uL (4.2-6.2); RED CELL DISTRIBUTION WIDTH 17.1 % (9.0-15.0)
--- NOTE | 2022-02-16 13:00 | NUR ---
FEEDING HOLD: TUBE FEEDING RESIDUAL 60 ML. WILL CONTINUE HOLD FEEDING AT THIS TIME. HOB 30<.
[2022-02-16 13:18] LABS: WHITE BLOOD COUNT (AUTO) 30.2 K/uL (4.8-10.8)
--- NOTE | 2022-02-16 14:00 | NUR ---
FEEDING HOLD: TUBE FEEDING RESIDUAL 60 ML. NOTED TO BE DARK BROWN. WILL CONTINUE TO HOLD FEEDING AT THIS TIME. HOB 30<.
--- NOTE | 2022-02-16 14:00 | NUR ---
ABNORMAL LABS: SPOKE WITH DR ESPINOSA REGARDING WBC 30.2, HH 7.8/26.5,BUN 55, CREA 2.42. PER MD, NO NEW ORDER AT THIS TIME. HE WILL TALK TO THE MOTHER AND PATIENT'S SISTER REGARDING PATIENT'S CONDITION. CONT WITH DNR/COMFORT CARE.
[2022-02-16 14:32] LABS: BAND % (MANUAL) 11 % (0-6); BASOPHILS % (MANUAL) 0 % (0-2); EOSINOPHILS % (MANUAL) 0 % (0-7); LYMPHOCYTES % (MANUAL) 10 % (20-46); METAMYELOCYTES % 1 % (0-0); MONOCYTES % (MANUAL) 9 % (0-11)
[2022-02-16 14:33] LABS: CORRECTED WHITE BLOOD COUNT 28.2 K/uL (4.5-11.0)
[2022-02-16] MEDS ORDERED: MEROPENEM 500 MG in NS 50 ML IV SCH (15:00)
--- NOTE | 2022-02-16 15:00 | NUR ---
FEEDING RESIDUAL: TUBE FEEDING RESIDUAL 60 ML. NOTED DARK BROWN GI CONTENT. WELL LARGE BLACK STOOL. DR ESPINOSA AT THE NURSES STATION AND IS AWARE. PER MD, TO HOLD/DC MEDICATIONS, IVF, AND FEEDINGS. DNR/COMFORT CARE AT THIS TIME.
--- NOTE | 2022-02-16 15:15 | NUR ---
WOUND CARE: CHANGED DRESSING DUE TO SOILED WITH FECES. RIGHT AND LEFT BUTTOCKS CLEANSE WITH NS, PACKED WITH STERILE GAUZE, AND COVERED WITH MEPILEX (FOAM). MEDIAL SACRAL CLEANSE WITH NS, PADDED DRY WITH STERILE GAUZE, AND COVERED WITH MEPILEX.
[2022-02-16 16:00] VITALS: BP_SYST 40
--- NOTE | 2022-02-16 16:00 | NUR ---
HR 80'S
[2022-02-16] MEDS ORDERED: MORPHINE 2 MG/ML INJ. SYRINGE IVP PRN (16:15)
--- NOTE | 2022-02-16 17:30 | NUR ---
BS 64: PER DR ESPINOSA, NO NEW ORDER. CONT WITH COMFORT CARE/DNR. BS 64. HR 105. UNDETECTABLE 02 DUE TO MOTTLING TO BILAT FINGERS/HANDS. WELL UNDETECTABLE BP.. VENT BEEPING DUE TO PATIENT IS NO LONGER BREATHING. RT AT THE BEDSIDE. PATIENT MOTHER AT THE BEDSIDE AND IS AWARE. Addendum: 02/16/22 at 2 by Gemini Zabala RN RN EDIT: HR IN THE 'S NOT 105.
--- NOTE | 2022-02-16 19:00 | NUR ---
PATIENT : 1810: UNDETECTABLE APICAL PULSE, BP, 02 SAT, AND NO RESPIRATION. 2 RN VERIFIED PATIENT HAS AT 1810 (LAURA Cantor RN AND ELAINE TORRES RN). PATIENT'S MOTHER AT THE BEDSIDE AND OTHER 2 FAMILY MEMBER. CHARGE NURSE LYNNETTE IS MADE AWARE. 1814: SPOKE WITH THE PATIENT'S SISTER SMOOTH ON THE PHONE. STATED, SHE IS ON HER WAY. RT AT THE BEDSIDE. 1819: DR ESPINOSA MADE AWARE WHO IS IN THE NURSES STATION. 1824: CARBON BRUSHES ASSEMBLER YONATAN IS MADE AWARE. 183: CALLED [facility] AND SPOKE WITH JOSE L. THEY WILL NOT ACCEPT THE PATIENT. REFERRAL ID [id number]. 1850: SNACKS AND NOURISHMENT PROVIDED FOR THE FAMILY. 185: MORE FAMILY MEMBER CAME TO VISIT. AWAITING FOR THE SISTER TO PROVIDE MORTUARY INFO. WILL ENDORSE TO THE NEXT SHIFT.
== END 2022-02-16 18:11 | DRG 720 ==
LOC: SED 23:55 → STU 02-15 05:37
PROVIDERS: ADMIT Internal Medicine; ATTEND Internal Medicine
PROC: 5A1945Z Respiratory Ventilation, 24-96 Consecutive Hours (ICD-10-PCS; principal; 2022-02-15)
PROC: 02HV33Z Insertion of Infusion Device into Superior Vena Cava, Percutaneous Approach (ICD-10-PCS; 2022-02-15)
PROC: 0T9B70Z Drainage of Bladder with Drainage Device, Via Natural or Artificial Opening (ICD-10-PCS; 2022-02-15)
DX: A41.9 Sepsis, unspecified organism (principal); J96.20 Acute and chronic respiratory failure, unspecified whether with hypoxia or hypercapnia; R65.21 Severe sepsis with septic shock; G82.50 Quadriplegia, unspecified; E43 Unspecified severe protein-calorie malnutrition; G93.1 Anoxic brain damage, not elsewhere classified; J18.9 Pneumonia, unspecified organism; D63.8 Anemia in other chronic diseases classified elsewhere; N17.9 Acute kidney failure, unspecified; Z93.0 Tracheostomy status; R13.10 Dysphagia, unspecified; Z66 Do not resuscitate; G40.909 Epilepsy, unspecified, not intractable, without status epilepticus; Z20.822 Contact with and (suspected) exposure to COVID-19; D50.9 Iron deficiency anemia, unspecified; N31.9 Neuromuscular dysfunction of bladder, unspecified; N13.2 Hydronephrosis with renal and ureteral calculous obstruction; Z99.11 Dependence on respirator [ventilator] status; Z93.1 Gastrostomy status; Z68.25 Body mass index [BMI] 25.0-25.9, adult
CPT/HCPCS: 36415; 71045; 76705; 80053; 81000; 82962; 83605; 84484; 85007; 85025; 85027; 85610-TC; 85730-TC; 87040; 87070-TC; 87081; 87086; 87205-TC; 93005; 94002; 94003; 94640; 94760; 96365; 96366; 96368; 96372; 96375; 99291; C1751; G0378; J0696; J1610; J1720; J1815; J2185; J2270; J2543; J3370; J3490; J7030; J7050; J7120; J7613; P9046